=== PATIENT | female | born 1955 | race Caucasian/White ===

== ENCOUNTER 2018-04-16 14:25 | Emergency (ER) | payer MEDICAID, MEDICARE ==
[2018-04-16 15:13] LABS: #Eosinphils 0.1 thou/uL (0.0-0.7); #Lymphocytes 0.9 thou/uL (1.20-3.40); #Monocytes 0.3 thou/uL (0.11-0.59); #Neutrophils 2.4 thou/uL (1.40-6.50); %Eosinophils 2.6 % (0.0-10.0); %Lymphocytes 23.5 % (21.0-51.0); %Monocytes 8.5 % (0.0-10.0); %Neutrophils 65.4 % (42.0-75.0); Hemoglobin 9.3 g/dL (12.0-16.0); Mean Corpuscular HGB CONC 35.3 g/dL (32.0-36.0); Mean Corpuscular Hemoglobin 31.8 pg (27.0-31.0); Mean Corpuscular Volume 90.1 fL (78.0-98.0); Mean Platelet Volume 9.8 fL (7.4-10.4); Platelet Count 51 thou/uL (130-400); RBC Distribution Width 12.5 % (11.5-14.5); Red Blood Cell (RBC) Count 2.91 mill/uL (4.20-5.40); White Blood Cell (WBC) Count 3.7 thou/uL (4.8-10.8)
[2018-04-16 15:35] LABS: ALT (SGPT) 11 U/L (8-55); AST (SGOT) 19 U/L (5-34); Albumin 3.5 g/dL (3.5-5.0); Alkaline Phosphatase 128 U/L (40-150); Anion Gap 14 mmol/L (10-20); BUN (Urea Nitrogen) 36 mg/dL (9.8-20.1); Bilirubin, Total 0.5 mg/dL (0.2-1.2); Calc. Creatinine Clearance 0 mL/min (70-130); Calcium 9.2 mg/dL (7.8-10.44); Carbon Dioxide 25 mmol/L (22-29); Chloride 109 mmol/L (98-107); Estimated GFR-MDRD 21; Globulin 3.5 g/dL (2.4-3.5); Glucose 190 mg/dL (70-105); Potassium 4.2 mmol/L (3.5-5.1); Sodium 144 mmol/L (136-145)
--- NOTE | 2018-04-16 16:27 | ULT ---
VENOUS DOPPLER ULTRASOUND OF LEFT LOWER EXTREMITY: History: Left lower extremity edema and leg pain. Technique: Grayscale, color flow, and spectral doppler imaging of the deep venous system was performe d. FINDINGS: Good flow, compression, and augmentation are noted in the left common femoral, femoral, deep femoral, deep femoral, popliteal, posterior tibial and greater saphenous veins. IMPRESSION: No evidence of DVT in the left lower extremity. POS: [facility]
== END 2018-04-16 16:52 | disposition home or self-care (01) ==
LOC: ERS 14:25
DX: I12.9 Hypertensive chronic kidney disease with stage 1 through stage 4 chronic kidney disease, or unspecified chronic kidney disease (principal); N18.9 Chronic kidney disease, unspecified; F17.210 Nicotine dependence, cigarettes, uncomplicated; F41.9 Anxiety disorder, unspecified; F32.9 Major depressive disorder, single episode, unspecified; J44.9 Chronic obstructive pulmonary disease, unspecified; E11.22 Type 2 diabetes mellitus with diabetic chronic kidney disease; Z79.899 Other long term (current) drug therapy; Z79.4 Long term (current) use of insulin
CPT/HCPCS: 36415; 80053; 85025

== ENCOUNTER 2019-01-07 10:54 | Outpatient (CLI) | payer OTHER ==
--- NOTE | 2019-01-07 12:13 | RAD ---
LEFT SHOULDER 3 VIEWS: Date: 01/07/19 HISTORY: Acute pain left shoulder following an injury. COMPARISON: 04/20/16. FINDINGS: Evidence for remote nonunion distal clavicle fracture. Healed left rib fractures. Arthrosis changes o f the AC joint and glenohumeral joint. No evidence for an acute fracture or dislocation. 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 Healed left rib fractures. No evidence for acute shoulder fracture. POS: [facility]
--- NOTE | 2019-01-07 12:13 | RAD ---
LEFT RIBS 2 VIEWS CHEST 1 VIEW: HISTORY: Intercostal pain, rib pain. FINDINGS: Evidence for multiple left healed rib fractures. No pneumothorax or pleural effusion. Atheroscleros is of the aorta. IMPRESSION: Evidence for multiple healed left rib fractures. No convincing evidence for acute left rib fracture. No pneumothorax or pleural effusion. POS: [facility]
--- NOTE | 2019-01-07 12:14 | RAD ---
RIGHT RIBS 2 VIEWS: HISTORY: Intercostal pain, rib pain. FINDINGS: There are some healed rib fractures. No evidence for acute fracture. No pneumothorax or pleural eff usion. IMPRESSION: No convincing evidence for acute rib fracture. Healed right rib fractures. No pneumothorax, pleural effusion, or other significant acute process. POS: [facility]
== END 2019-01-07 10:55 | disposition home or self-care (01) ==
LOC: BICRAD 10:54
PROVIDERS: ATTEND Family Medicine
DX: R07.81 Pleurodynia (principal); R07.82 Intercostal pain; M25.512 Pain in left shoulder

== ENCOUNTER 2019-09-27 11:16 | Inpatient (IN) | payer MEDICARE, OTHER ==
[2019-09-27 12:04] LABS: #Eosinphils 0.1 thou/uL (0.0-0.7); #Lymphocytes 0.6 thou/uL (1.20-3.40); #Monocytes 0.3 thou/uL (0.11-0.59); #Neutrophils 3.1 thou/uL (1.40-6.50); %Basophils 0.5 % (0.0-1.0); %Eosinophils 1.6 % (0.0-10.0); %Lymphocytes 13.6 % (21.0-51.0); %Neutrophils 76.3 % (42.0-75.0); Hemoglobin 7.9 g/dL (12.0-16.0); Mean Corpuscular HGB CONC 33.7 g/dL (32.0-36.0); Mean Corpuscular Hemoglobin 31.5 pg (27.0-31.0); Mean Corpuscular Volume 93.5 fL (78.0-98.0); Mean Platelet Volume 11.1 fL (7.4-10.4); Platelet Count 44 thou/uL (130-400); RBC Distribution Width 13.7 % (11.5-14.5); Red Blood Cell (RBC) Count 2.49 mill/uL (4.20-5.40); White Blood Cell (WBC) Count 4.1 thou/uL (4.8-10.8)
--- NOTE | 2019-09-27 12:10 | RAD ---
XR Chest 1 View Portable HISTORY: Weakness COMPARISON: 08/21/2013 FINDINGS: The heart size is borderline. The lungs are well expanded without focal areas of consolidat ion, pneumothorax or pleural effusions. Mild chronic changes again seen. Old left-sided rib fractures are present.
[2019-09-27 12:29] LABS: ALT (SGPT) 11 U/L (8-55); AST (SGOT) 21 U/L (5-34); Albumin 3.7 g/dL (3.4-4.8); Alkaline Phosphatase 108 U/L (40-110); Anion Gap 14 mmol/L (10-20); BUN (Urea Nitrogen) 45 mg/dL (9.8-20.1); Bilirubin, Total 0.7 mg/dL (0.2-1.2); CK (CPK) 122 U/L (29-168); Calc. Creatinine Clearance 0 mL/min (70-130); Calcium 8.3 mg/dL (7.8-10.44); Carbon Dioxide 21 mmol/L (23-31); Chloride 111 mmol/L (98-107); Estimated GFR-MDRD 12; Globulin 3.5 g/dL (2.4-3.5); Glucose 113 mg/dL (80-115); Lipase 22 U/L (8-78); Potassium 4.2 mmol/L (3.5-5.1); Protein, Total 7.2 g/dL (6.0-8.3); Sodium 142 mmol/L (136-145)
[2019-09-27 12:34] LABS: Actual Bicarbonate (HCO3a) 20.5 mEq/L (22-28); Analyzer IN Cardio ER; Base Excess (BEa) -6.3 mEq/L (-2.0 to +3.0); Calcium, Ionized (arterial) 1.11 mmol/L (1.12-1.30); Carboxyhemoglobin (COHb) 1.4 gm% (0.0-3.0); Hemoglobin (Hb) 9.8 g/dL (12.0-16.0); Potassium - ABG Lab 4.16 mmol/L (3.70-5.30); pH, Arterial 7.27 (7.35-7.45)
[2019-09-27 12:35] LABS: Puncture Site LRA
[2019-09-27] MEDS ORDERED: Ketorolac Tromethamine 30 MG/ML VIAL ONE (12:44)
[2019-09-27] MEDS ORDERED: Metoclopramide HCl 10 MG/2 ML VIAL ONE (12:44)
[2019-09-27] MEDS ORDERED: Dexamethasone 10 MG/ML VIAL ONE ×3 (12:44→12:48)
[2019-09-27 12:49] LABS: CKMB 2.9 ng/mL (0-6.6)
[2019-09-27] MEDS ORDERED: Furosemide 40 MG/4 ML VIAL ONE ×2 (13:43→14:15)
[2019-09-27] MEDS ORDERED: Aspirin Chewable 81 MG TAB ONE (13:43)
[2019-09-27] MEDS ORDERED: Nitroglycerin 2% Ointment 1 INCH/1 GM Packet ONE (13:43)
[2019-09-27] MEDS ORDERED: Enoxaparin Sodium 100 MG/ML SYRINGE ONE (13:43)
[2019-09-27 16:31] LABS: Troponin I 0.091 ng/mL (< 0.028)
--- NOTE | 2019-09-27 16:50 | ULT ---
Exam: Bilateral renal ultrasound HISTORY: Chronic renal failure COMPARISON: None FINDINGS: Right kidney: Normal cortical echotexture. No hydronephrosis. Right kidney measurements: 6.0 x 6.9 x 12.1 cm. Left kidney: Normal cortical echotexture. No hydronephrosis Left kidney measurements 10.8 x 6.9 x 6.2 cm. Urinary bladder: Normal mucosa. 93 mL bladder volume. IMPRESSION: No hydronephrosis.
[2019-09-27] MEDS ORDERED: Ferrous Sulfate 325 MG TAB PO SCH (17:00)
--- NOTE | 2019-09-27 18:29 | CON ---
DATE OF CONSULTATION: 09/27/2019 HISTORY OF PRESENT ILLNESS: Ms. Campos is a 64-year-old white female, who was admitted due to complaints of generalized malaise. According to the patient, she has had intermittent fever and for that reason, was sent today here for further evaluation. The patient was ruled out for COVID-19. In addition, chest x-ray did not show any infiltrates or evidence of CHF. We are now being consulted for her acute kidney injury on top of her chronic renal failure. REVIEW OF SYSTEMS: Positive for generalized malaise, occasional shortness of breath when supine position, but on upright remains asymptomatic, ? of fever. No gross hematuria. No dysuria. No abdominal pain. No syncopal episode. No headache. Occasional joint pains. No new skin rash. Appetite and energy level are fair. No dysuria. No melena. No hematochezia. No sore throat. HOME MEDICATIONS: Home medications include; 1. Tizanidine 2 mg tablet at bedtime p.r.n. 2. Albuterol neb treatment q.6h p.r.n. 3. Remeron 50 mg at bedtime. 4. Lyrica 200 mg p.o. t.i.d. p.r.n. 5. Amlodipine 10 mg tablet once a day. 6. Ferrous sulfate 325 mg twice a day. 7. Klor-Con 20 mEq once a day. 8. Furosemide 40 mg tablet once a day. 9. Levemir 60 units subcu at bedtime. 10. Sertraline 100 mg half a tablet daily. 11. KCl 20 mEq once a day. PAST MEDICAL HISTORY: 1. DJD. 2. Chronic renal failure from diabetic nephropathy. 3. COPD/chronic bronchitis. 4. History of liver disease/cirrhosis. 5. ? status post hepatitis. 6. Depression. 7. Status post right foot/leg infection. 8. Status post UTI. 9. Diabetic neuropathy. 10. Type-2 diabetes mellitus. PAST SURGICAL HISTORY: 1. Status post back surgery. 2. Status post right BKA. 3. Status post hysterectomy. 4. Status post right ankle surgery. 5. Status post right elbow surgery. 6. Status post right shoulder surgery. 7. Status post colonoscopy. SOCIAL HISTORY: The patient lives in [place] [facility]. The patient is , total of 6 children with 2 as adopted and with 2 . Status post blood transfusion. Alcohol, none. Smokes 4 to 5 cigarettes at the present time, but used to smoke 1 to 2 packs a day for at least 20 years. Education, 11th grade. She is a retired head of store operations. No IV drug abuse. FAMILY HISTORY: No family history of ESRD. ALLERGIES: ERYTHROMYCIN. TRAUMA: 1. Status post left collarbone injury. 2. Status post right ankle fracture. 3. Status post left forearm fracture. HOSPITALIZATIONS: Please see past medical history. IMMUNIZATIONS: Up-to-date. PHYSICAL EXAMINATION: VITAL SIGNS: Blood pressure is noted at 158/86, heart rate 86, respiratory rate 18, O2 saturation 90% on room air, temperature is 97.8. GENERAL: The patient is awake, alert, supine, comfortable, not in overt distress. SKIN: Adequate turgor. HEENT: She has a slightly pale conjunctivae. Anicteric sclerae. No neck mass. No carotid bruits. No JVD. CHEST: No deformities. LUNGS: Decreased breath sounds. HEART: Normal sinus rhythm. No murmurs. No gallops. No rubs. ABDOMEN: Globular, soft, nontender. No masses. EXTREMITIES: No edema, left leg. Status post right BKA. NEUROLOGICAL: Oriented to 3 spheres. Moving all extremities. No tremors. No asterixis. LABORATORY DATA: Laboratories of September 27, 2019; white count 4.1, hemoglobin 7.9. Sodium 142, potassium 4.2, chloride 111, carbon dioxide 21, BUN 45, creatinine 3.86, glucose 113, GFR is 12 mL/minute, calcium 8.3. Albumin 3.7. BNP is 641.2. Troponin-I was 0.104. Urinalysis of July 13, 2019, protein was 200, RBC 4-6, WBC 4-6. ASSESSMENT AND PLAN: 1. Chronic renal failure - with longstanding history of diabetes mellitus and proteinuria, consider diabetic nephropathy. Creatinine 3.86, slightly higher from baseline of 3.33. Please note, this patient has been on chronic diuretic regimen. Our plan today is to give albumin infusion to see if I could still improve the renal function. I do not see any indication for any emergent hemodialysis at the present time with this patient. Continue to hold off diuretics, MOSES inhibitors, or ARB. In addition, I will hold off any NSAIDs such as Toradol. 2. Chronic obstructive pulmonary disease - DuoNeb q.6 hours around the clock. 3. Anemia. We will start Epogen 7500 units subcu every week. In addition, we will continue iron supplementation 325 mg b.i.d. A renal ultrasound will also be ordered to determine kidney size. Previous urinalysis was done and is adequate for the moment. 4. Generalized malaise, this could be related to anemia. Please note, the patient has been ruled out for COVID due to complaints of intermittent fever at home. Job ID: [id number]
[2019-09-27] MEDS ORDERED: Dextrose 50% Abboject 50 ML SYRINGE SLOW IVP PRN (18:56)
[2019-09-27] MEDS ORDERED: HumaLOG 300 UNITS/3 ML VIAL SC PRN (18:56)
[2019-09-27] MEDS ORDERED: Dextrose 5% in Water 1,000 ML IV PRN (18:56)
[2019-09-27 18:58] LABS: Troponin I 0.077 ng/mL (< 0.028)
[2019-09-27] MEDS ORDERED: Calcium Carbonate 500 MG ChewTAB PO PRN (18:58)
[2019-09-27] MEDS ORDERED: Senokot S 8.6-50 MG TAB PO PRN (18:58)
[2019-09-27] MEDS: Albumin 25% 25 GM/100 ML BOT IVPB SCH ×2 (19:23→22:55)
[2019-09-27 19:35] LABS: Reticulocyte Count 5.2 % (0.5-1.5)
[2019-09-27 19:41] LABS: INR-International Normal Ratio 1.3; PTT 41.9 sec (22.9-36.1); Prothrombin Time 15.9 sec (12.0-14.7)
[2019-09-27 19:52] LABS: Iron 49 ug/dL (50-170); Iron Binding Capacity, Total 220 mcg/dL (265-497)
[2019-09-27] MEDS: EPOETIN ALFA-EPBX (ESRD) 4,000 UNIT/ML VIAL SC SCH (19:52)
--- NOTE | 2019-09-27 20:02 | HP ---
PRIMARY CARE PHYSICIAN: Sarath Aguillon MD PATTERN ILLUSTRATOR: Wilver Fang MD CHIEF COMPLAINT: Generalized weakness and nonproductive cough. HISTORY OF PRESENT ILLNESS: The patient is a 64-year-old female with past medical history significant for chronic kidney disease stage 4, cirrhosis, diabetes type 2, COPD, chronic back pain, and depression, who presents to the ER for the above complaint. The patient reports having generalized weakness and malaise over the past 3 to 4 days. She denies any chest pain or palpitations or swelling in her lower extremities. She denies any shortness of breath. She does report chronic nonproductive cough and she has had a decreased oral intake. She denies any abdominal pain, nausea, vomiting, or diarrhea. She denies any blood in her stool. She denies any dysuria or vaginal discharge. She denies any fever or chills. In the ER, the patient presented hypertensive with a blood pressure 200/90, hypoxic , 87% on room air. ABG showed metabolic acidosis. Her BUN was 45. Her creatinine was 3.86. She was pancytopenic with a hemoglobin of 7.9, hematocrit of 23.3, platelets of 44, white blood cells of 4.1. EKG, normal sinus rhythm. Troponin 0.104. BNP of 641.2. She had a D-dimer of 1.84. She was given 1 mg/ kg Lovenox, nitroglycerin paste, and a full dose aspirin, Lasix 40 mg, 1 L normal saline, and some Decadron. Admitted to the floor. PAST MEDICAL HISTORY: 1. Cirrhosis. 2. Chronic kidney disease, stage 4. 3. Diabetes type 2, insulin dependent. 4. COPD. 5. Chronic back pain. 6. Anxiety and depression. PAST SURGICAL HISTORY: 1. Hysterectomy. 2. Back surgery x2. 3. Right BKA. 4. Elbow surgery x4. SOCIAL HISTORY: The patient lives at [place] in an apartment. She performs all of her ADLs. She smokes 4 cigarettes a day. Has no alcohol intake. No illicit drug use and she mobilizes by wheelchair and she does not work. FAMILY HISTORY: Noncontributory to this case. The patient reports that it is unknown. ALLERGIES: 1. ERYTHROMYCIN. 2. BENZOCAINE. 3. TRIMETHOBENZAMIDE. HOME MEDICATIONS: 1. Alendronate sodium 70 mg one tablet p.o. q.7 days. 2. Furosemide 40 mg p.o. daily. 3. Humulin R sliding scale at bedtime. 4. Potassium chloride 20 mEq p.o. b.i.d. 5. Tizanidine 4 mg p.o. at bedtime. 6. Ambien 5 mg p.o. at bedtime. 7. Tylenol with codeine 300 mg/60 mg one p.o. p.r.n. pain. 8. Amlodipine 10 mg p.o. daily. 9. Buspirone 15 mg p.o. b.i.d. 10. Ferrous sulfate 325 mg p.o. b.i.d. 11. Fluoxetine 40 mg p.o. daily. 12. Hydralazine 10 mg p.o. t.i.d. 13. Levemir 55 units subcutaneous at bedtime. 14. Mirtazapine 15 mg p.o. at bedtime. 15. Pantoprazole 40 mg p.o. daily. 16. Lyrica 200 mg p.o. t.i.d. 17. Sertraline 150 mg p.o. daily. REVIEW OF SYSTEMS: All review of systems are negative unless otherwise stated in the HPI. PHYSICAL EXAMINATION: VITAL SIGNS: Temperature 97.9, blood pressure 157/83, pulse 88, respirations 15 , 95% on 3 L nasal cannula. CONSTITUTIONAL: The patient is alert and oriented to person, place, and time. Nontoxic in appearance and comfortable. HEAD: Atraumatic and normocephalic. EYES: PERRLA. Extraocular muscles intact. ENT: Nares patent bilaterally. Oropharynx clear. Uvula midline. Moist mucous membranes. No oral lesions. Poor dentition. NECK: Supple. Trachea midline. No JVD. No cervical adenopathy. Full range of motion. No cervical tenderness. RESPIRATIONS: Even and unlabored. Diminished throughout. No rhonchi, wheezes , or rales. CARDIOVASCULAR: Regular rate and rhythm with 3/6 murmur. No rubs or gallops. ABDOMEN: Soft, nontender. Active bowel sounds. No guarding. No rigidity. No rebound tenderness. No abdominal bruit auscultated. Negative Rovsing sign. Negative Vázquez sign. BACK: Full range of motion. No central spinous tenderness. No CVA tenderness. EXTREMITIES: Upper extremities, full range of motion. Strength intact. Sensation intact. Palpable radial pulses. Lower extremities, right BKA. Left lower extremity is normal. Full range of motion. Normal strength. Normal sensation. Palpable pulses. No swelling. NEUROLOGIC: The patient is alert and oriented to person, place, and time. No focal deficits. Follows commands. PSYCHIATRIC HISTORY: Normal affect. Alert and oriented to person, place, and time. Denies suicidal or homicidal ideation. LABS AND DIAGNOSTICS: EKG, normal sinus rhythm. Troponin 0.104, second troponin 0.091. BNP 641.2. D-dimer 1.84. Chest x-ray, negative for any acute process. COVID negative. ABG; pH 7.27, pCO2 of 46, bicarb 20.5, pO2 of 96.8. Sodium 146 , potassium 4.2, chloride 111, CO2 of 27, BUN 45, creatinine 3.86, glucose 113, T bilirubin 0.7, AST 21, ALT 11, alkaline phosphatase 108, lipase 22. WBCs 4.1, hemoglobin 7.9, hematocrit 23.3, platelets 44. IMPRESSION AND PLAN: 1. Acute hypoxic respiratory failure. We will admit the patient to telemetry for inpatient status. Expected length of stay greater than 2 midnights. The patient presented hypertensive and hypoxic. The patient was placed on 3 L nasal cannula with improved oxygenation. EKG, normal sinus rhythm. Elevated troponin and BNP and D-dimer. Unable to perform CT at this time secondary to kidney function. We will trend troponins. We will continue air quality technician. We will check a TSH, magnesium, and fasting lipid. We will order an echocardiogram and VQ scan. No anticoagulation secondary to low platelets. 2. Jilxn-qe-otnfzab kidney failure. The patient presented with a BUN of 45, creatinine of 3.86. Dr. Fang with Nephrology was consulted in the ER. At this time, he does not think that the patient needs dialysis at this time. He has started albumin and epoetin. Appreciate his input. 3. Metabolic acidosis, likely secondary to problem #2. The patient presented with ABG, pH of 7.27, pCO2 of 46, bicarb 20.5. 4. Pancytopenia, likely secondary to chronic kidney disease. We will check a folate, B12, iron studies, and retic count. The patient is currently on erythropoietin. 5. Chronic obstructive pulmonary disease. The patient presented in acute hypoxic respiratory distress, currently on 3 L nasal cannula. Respirations are even and unlabored. She is in no acute distress at this time. We will start the patient on DuoNeb scheduled and will continue supportive oxygen as needed. 6. Cirrhosis, chronic. We will check coags. 7. Diabetes type 2. The patient is on 55 units of Levemir daily. We will restart the patient's home dose of Levemir and we will start the patient on moderate sliding scale with a.c. and nightly Accu-Cheks. 8. Tobacco abuse. The patient smokes 4 cigarettes per day. She is unwilling to quit. We will after school counselor tobacco cessation. 9. Depression. The patient denies any suicidal or homicidal ideation. The patient is on multiple medications for depression. We will restart home medications when reconciled by nursing. 10. No deep venous thrombosis prophylaxis. Pantoprazole for gastrointestinal prophylaxis. The patient is a full code. Her medical contact is Sherrell, her daughter, [phone]. 11. Discussed case with Dr. Falcon. Job ID: [id number] MTDD
[2019-09-27] MEDS ORDERED: Non-Formulary Item 1 EACH (Insulin Detemir 100 Units/Ml [Levemir] 55 UNITS) SC SCH (21:00)
[2019-09-27] MEDS: hydrALAZINE 10 MG TAB PO SCH (21:02)
[2019-09-27] MEDS: Insulin Glargine 55 UNITS in Pre-Filled Syringe 1 EACH SC SCH (21:02)
[2019-09-27] MEDS: Pregabalin 50 MG CAP PO SCH (21:03)
[2019-09-27] MEDS: busPIRone HCl 5 MG TAB PO SCH (21:03)
[2019-09-27] MEDS: Mirtazapine 15 MG TAB PO SCH (21:04)
[2019-09-27] MEDS: Nicotine 14 MG PATCH TD SCH (22:55)
[2019-09-27 23:40] LABS: Bilirubin Negative (Negative); Blood, Urine 2+ (Negative); Clarity Turbid (Clear); Glucose, Urine (Dipstick) 500 mg/dL (Negative); Ketone, Urine 20 mg/dL (Negative); Leukocyte 75 Leu/uL (Negative); Nitrite Negative (Negative); Protein, Urine (Dipstick) 300 mg/dL (Neg-Trace); Specific Gravity, Urine 1.016 (1.002-1.036); Squamous Epithelial 0-3 HPF (0-3); Urobilinogen Normal mg/dL (Less than 2)
[2019-09-27 23:42] LABS: Bacteria/HPF Rare-Few HPF (None Seen)
[2019-09-27] MEDS: Zolpidem Tartrate 5 MG TAB PO PRN (23:58)
[2019-09-28 04:36] LABS: #Lymphocytes 0.4 thou/uL (1.20-3.40); #Monocytes 0.4 thou/uL (0.11-0.59); #Neutrophils 2.5 thou/uL (1.40-6.50); %Basophils 0.3 % (0.0-1.0); %Eosinophils 0.8 % (0.0-10.0); %Lymphocytes 11.7 % (21.0-51.0); %Monocytes 11.9 % (0.0-10.0); %Neutrophils 75.2 % (42.0-75.0); Hemoglobin 6.7 g/dL (12.0-16.0); Mean Corpuscular HGB CONC 33.1 g/dL (32.0-36.0); Mean Corpuscular Volume 93.6 fL (78.0-98.0); Mean Platelet Volume 11.4 fL (7.4-10.4); Platelet Count 38 thou/uL (130-400); RBC Distribution Width 13.8 % (11.5-14.5); Red Blood Cell (RBC) Count 2.17 mill/uL (4.20-5.40); White Blood Cell (WBC) Count 3.3 thou/uL (4.8-10.8)
[2019-09-28 04:57] LABS: Anion Gap 11 mmol/L (10-20); BUN (Urea Nitrogen) 53 mg/dL (9.8-20.1); Calc. Creatinine Clearance 21 mL/min (70-130); Calcium 7.8 mg/dL (7.8-10.44); Carbon Dioxide 24 mmol/L (23-31); Cardiac Risk 5.4 (Less than 4.5); Chloride 112 mmol/L (98-107); Cholesterol 195 mg/dl (< 200 Desired); Estimated GFR-MDRD 10; Glucose 128 mg/dL (80-115); HDL Cholesterol 36 mg/dL (>60 Neg Risk); LDL Cholesterol, Calculated 132 mg/dL; Phosphorus 4.3 mg/dL (2.3-4.7); Potassium 4.4 mmol/L (3.5-5.1); Sodium 143 mmol/L (136-145); Triglycerides 137 mg/dL (Less than 150)
[2019-09-28] MEDS: Albumin 25% 25 GM/100 ML BOT IVPB SCH ×4 (05:04→21:30)
[2019-09-28] MEDS: Ferrous Sulfate 325 MG TAB PO SCH ×2 (08:56→15:51)
[2019-09-28] MEDS: FLUoxetine HCl 20 MG CAP PO SCH (08:57)
[2019-09-28] MEDS: busPIRone HCl 5 MG TAB PO SCH ×2 (08:57→21:28)
[2019-09-28] MEDS: Amlodipine 10 MG TAB PO SCH (08:58)
[2019-09-28] MEDS: Pregabalin 50 MG CAP PO SCH ×3 (09:18→21:29)
[2019-09-28] MEDS: hydrALAZINE 10 MG TAB PO SCH ×3 (09:20→21:29)
[2019-09-28] MEDS: Calcitriol 0.25 MCG CAP PO SCH (09:20)
[2019-09-28] MEDS ORDERED: Albumin 25% 25 GM/100 ML BOT IVPB ONE (09:30)
--- NOTE | 2019-09-28 09:43 | PRG ---
DATE OF SERVICE: 09/28/2019 SUBJECTIVE: Ms. Campos is a 64-year-old white female was admitted due to generalized malaise and ? of a fever. She was ruled out for COVID-19. In addition, we are seeing this patient for acute kidney injury on top of her chronic renal failure. Creatinine continues to worsen. She was given albumin infusion and creatinine has further gone up from 3.86 to 4.4. Chest x-ray initially showed no overt CHF, but her BNP is elevated. However, BNP could be elevated also in people with COPD. Cardiac echo and lung perfusion studies have been ordered. She voices no new complaint today. She does mention of shortness of breath on supine position, but not on upright position. For that reason, a cardiac echo has been ordered. OBJECTIVE: VITAL SIGNS: Blood pressure 151/89, heart rate 76, respiratory rate 15, temperature 97.5, and O2 saturation is 98%. GENERAL: The patient is noted to be awake, supine, comfortable, obese, not in distress. SKIN: Adequate turgor. HEENT: Pale conjunctivae. Anicteric sclerae. NECK: No neck mass. No carotid bruits. No JVD. CHEST: No deformities. LUNGS: Clear breath sounds. No wheezing. No crackles. HEART: Normal sinus rhythm. No murmurs. No gallops. No rubs. ABDOMEN: Globular, soft, and nontender. No masses. EXTREMITIES: Trace edema. No deformities. MEDICATIONS: Medications of September 28, 2019, reviewed. LABORATORY DATA: Laboratories of September 28, 2019; white count 3.3, hemoglobin 6.7, hematocrit 20.3. Sodium 143, potassium 4.4, chloride 112, carbon dioxide 24, BUN 53, creatinine 4.44, glucose 128, calcium 7.8, phosphorus 4.3, cholesterol 195. PTH 1178. On September 27, 2019, renal ultrasound shows normal findings-normal echotexture. No hydronephrosis. ASSESSMENT AND PLAN: 1. Acute kidney injury on top of her chronic renal failure-I still suspect a possible prerenal component on top of her chronic renal failure. In the past, her urinalysis showed proteinuria suggesting she may have an underlying diabetic nephropathy. The plan is to continue albumin infusion for one more day. In addition, blood transfusion will be giving to optimize her hemodynamics. No indication for any emergent dialysis at the present time. Although, I have not rule out that possibility if the renal function will further worsen. 2. Anemia. Started on Epogen, blood transfusion 1 unit today. 3. Secondary hyperparathyroidism-calcitriol 0.25 mcg tablet daily was started. 4. Chronic obstructive pulmonary disease. Continue neb treatment. The patient will be ruled out for PE as we will do a cardiac echo to check for ejection fraction. Overall prognosis remains guarded. We will recheck basic metabolic and CBC in a.m. Blood transfusion has been ordered. Job ID: [id number]
--- NOTE | 2019-09-28 11:15 | NM ---
NUCLEAR MEDICINE PULMONARY PERFUSION SCAN: (V/Q scan) DATE: 09/28/2019 HISTORY: 64-year-old female with "acute hypoxic respiratory failure. Elevated d-dimer" TECHNIQUE: Xenon-133 gas not administered because of COVID-19 risk on ventilation machines. Technetium 99m-MAA dose: 5.5 mCi Ventilation portion of study not performed. Technetium 99m-MAA was injected IV, and multiple perfusion scintigraphic images were obtained. FINDINGS: There are no moderate sized or large perfusion defects. IMPRESSION: Low probability for pulmonary thromboembolism.
--- NOTE | 2019-09-28 12:49 | PDOC.HOSPP ---
- Subjective Encounter Date: 09/28/19 Subjective: Patient seen and examined bedside this morning sugars were brought in some improvement in her symptoms denying any chest pain nausea vomiting still feeling generalized weakness and some short of breath but no significant overnight events patient has remained afebrile - Objective Vital Signs & Weight: Vital Signs (12 hours) Temp Pulse Resp BP BP Pulse Ox 09/28/19 11:01 97.8 F 82 19 179/94 H 98 09/28/19 09:20 76 151/89 H 09/28/19 08:58 76 151/89 H 09/28/19 07:34 97.5 F L 76 15 151/89 H 98 09/28/19 07:27 75 18 100 09/28/19 03:31 98.0 F 75 18 137/76 96 Weight Weight 218 lb I&O: 09/27/19 09/28/19 09/29/19 06:59 06:59 06:59 Intake Total 400 0 Output Total 200 Balance 200 0 Result Diagrams: 09/28/19 04:25 09/28/19 04:25 Additional Labs: Accuchecks 09/28/19 09/28/19 09/27/19 12:13 05:45 20:58 POC Glucose 139 H 116 H 270 H Hospitalist ROS - Medication Medications: Active Medications Generic Name Dose Route Start Last Admin Trade Name Lee PRN Reason Stop Dose Admin Albumin Human 25 gm 09/28/19 10:00 09/28/19 09:52 Albumin 25% IVPB 09/29/19 04:01 25 gm Q6H ANT Administration Albuterol/Ipratropium 3 ml 09/27/19 19:00 09/28/19 07:27 Duoneb EZPAP 3 ml [id number] ANT Administration Amlodipine Besylate 10 mg 09/28/19 09:00 09/28/19 08:58 Norvasc PO 10 mg DAILY ANT Administration Buspirone HCl 15 mg 09/27/19 21:00 09/28/19 08:57 Buspar PO 15 mg BID ANT Administration Calcitriol 0.25 mcg 09/28/19 09:00 09/28/19 09:20 Rocaltrol PO 0.25 mcg DAILY ANT Administration Epoetin Randy-epbx 7,500 unit 09/27/19 17:00 09/27/19 19:52 Retacrit SC 7,500 unit Q7D ANT Administration Ferrous Sulfate 325 mg 09/28/19 08:00 09/28/19 08:56 Feosol PO 325 mg BID-WM ANT Administration Fluoxetine HCl 40 mg 09/28/19 09:00 09/28/19 08:57 Prozac PO 40 mg DAILY ANT Administration Hydralazine HCl 10 mg 09/27/19 21:00 09/28/19 09:20 Apresoline PO 10 mg TID ANT Administration Insulin Glargine 55 units/ 0.55 mls @ 0 mls/hr 09/27/19 21:00 09/27/19 21:02 Miscellaneous Medication SC 0.55 mls HS ANT Administration Insulin Human Lispro 0 units 09/27/19 18:56 09/27/19 20:59 Humalog SC 3 units .BEDTIME SLIDING SC PRN Administration Bedtime Correctional Scale Mirtazapine 15 mg 09/27/19 21:00 09/27/19 21:04 Remeron PO 15 mg HS ANT Administration Nicotine 14 mg 09/27/19 22:00 09/27/19 22:55 Nicoderm Patch TD 14 mg 2200 ANT Administration Pantoprazole Sodium 40 mg 09/28/19 09:00 09/28/19 08:56 Protonix PO 40 mg DAILY ANT Administration Pregabalin 200 mg 09/27/19 21:00 09/28/19 09:18 Lyrica PO 200 mg TID ANT Administration Sertraline HCl 150 mg 09/28/19 09:00 09/28/19 08:57 Zoloft PO 150 mg DAILY ANT Administration Sodium Chloride 10 ml 09/27/19 18:58 09/27/19 21:04 Flush - Normal Saline IVF 10 ml Q12HR PRN Administration Saline Flush Zolpidem Tartrate 5 mg 09/27/19 18:16 09/27/19 23:58 Ambien PO 5 mg HSPRN PRN Administration Insomnia - Exam General Appearance: NAD, awake alert Eye: PERRL Neck: supple Heart: RRR, no murmur Respiratory: CTAB, no wheezes Gastrointestinal: soft, non-tender Musculoskeletal: normal tone Hosp A/P (1) OTIS (acute kidney injury) Code(s): N17.9 - ACUTE KIDNEY FAILURE, UNSPECIFIED Status: Acute (2) Diabetes mellitus Code(s): E11.9 - TYPE 2 DIABETES MELLITUS WITHOUT COMPLICATIONS Status: Acute (3) Hematemesis Code(s): K92.0 - HEMATEMESIS Status: Acute (4) Hypokalemia Code(s): E87.6 - HYPOKALEMIA Status: Acute (5) Syncope Code(s): R55 - SYNCOPE AND COLLAPSE Status: Acute - Plan Acute hypoxic respiratory failure most likely in the setting fluid overload in the setting of acute on chronic kidney disease we will continue to monitor for now wean off oxygen as tolerated VQ scan low probability for pulmonary emboli Patient saturating well on room air we will continue to monitor Regarding acute kidney injury on top of CKD possible prerenal component appreciate nephrology input, the plan is to continue albumin infusion for 1 more day as well as blood transfusion no indication for emergent dialysis will follow further nephrology recommendations Anemia most likely of chronic disease Started on Epogen blood transfusion 1 unit today we will follow CBC and transfuse if needed Secondary hyperparathyroidism Monitor electrolytes and replace as needed DVT prophylaxis GI prophylaxis Patient is full code Plan discussed with patient and all questions has been answered Demented clinical improvement patient will probably need 1 to 2 days of hospital stay once cleared by nephrology
[2019-09-28 15:29] LABS: #Lymphocytes 0.5 thou/uL (1.20-3.40); #Monocytes 0.3 thou/uL (0.11-0.59); #Neutrophils 2.7 thou/uL (1.40-6.50); %Basophils 0.1 % (0.0-1.0); %Eosinophils 1.2 % (0.0-10.0); %Lymphocytes 15.1 % (21.0-51.0); %Monocytes 8.5 % (0.0-10.0); %Neutrophils 75.1 % (42.0-75.0); Hemoglobin 7.1 g/dL (12.0-16.0); Mean Corpuscular HGB CONC 33.9 g/dL (32.0-36.0); Mean Corpuscular Hemoglobin 31.5 pg (27.0-31.0); Mean Corpuscular Volume 92.9 fL (78.0-98.0); Mean Platelet Volume 11.8 fL (7.4-10.4); Platelet Count 39 thou/uL (130-400); RBC Distribution Width 14.3 % (11.5-14.5); Red Blood Cell (RBC) Count 2.25 mill/uL (4.20-5.40); White Blood Cell (WBC) Count 3.6 thou/uL (4.8-10.8)
[2019-09-28 15:51] LABS: Anion Gap 15 mmol/L (10-20); BUN (Urea Nitrogen) 53 mg/dL (9.8-20.1); Calc. Creatinine Clearance 21 mL/min (70-130); Calcium 7.7 mg/dL (7.8-10.44); Carbon Dioxide 21 mmol/L (23-31); Chloride 111 mmol/L (98-107); Estimated GFR-MDRD 11; Glucose 126 mg/dL (80-115); Potassium 4.1 mmol/L (3.5-5.1); Sodium 143 mmol/L (136-145)
[2019-09-28] MEDS ORDERED: Prevnar 13-Val Conj/PF 0.5 ML SYRINGE IM ONE (17:45)
[2019-09-28] MEDS: Acetaminophen/Codeine 30-300mg Tablet PO PRN (19:00)
[2019-09-28 19:43] LABS: Bacteria/HPF None Seen HPF (None Seen); Bilirubin Negative (Negative); Blood, Urine 1+ (Negative); Clarity Clear (Clear); Glucose, Urine (Dipstick) 100 mg/dL (Negative); Ketone, Urine Negative (Negative); Leukocyte 75 Leu/uL (Negative); Nitrite Negative (Negative); Protein, Urine (Dipstick) 300 mg/dL (Neg-Trace); Specific Gravity, Urine 1.015 (1.002-1.036); Squamous Epithelial 0-3 HPF (0-3); Urobilinogen Normal mg/dL (Less than 2)
[2019-09-28] MEDS: Mirtazapine 15 MG TAB PO SCH (21:28)
[2019-09-28] MEDS: Insulin Glargine 55 UNITS in Pre-Filled Syringe 1 EACH SC SCH (21:28)
[2019-09-28] MEDS: Nicotine 14 MG PATCH TD SCH (21:30)
[2019-09-29] MEDS: Acetaminophen/Codeine 30-300mg Tablet PO PRN ×2 (00:40→12:26)
[2019-09-29] MEDS: Albumin 25% 25 GM/100 ML BOT IVPB SCH (04:55)
[2019-09-29 05:04] LABS: #Lymphocytes 0.6 thou/uL (1.20-3.40); #Monocytes 0.3 thou/uL (0.11-0.59); #Neutrophils 2.2 thou/uL (1.40-6.50); %Basophils 0.3 % (0.0-1.0); %Eosinophils 1.6 % (0.0-10.0); %Lymphocytes 18.5 % (21.0-51.0); %Neutrophils 71.5 % (42.0-75.0); Hemoglobin 7.3 g/dL (12.0-16.0); Mean Corpuscular HGB CONC 32.8 g/dL (32.0-36.0); Mean Corpuscular Hemoglobin 30.4 pg (27.0-31.0); Mean Corpuscular Volume 92.7 fL (78.0-98.0); Mean Platelet Volume 11.2 fL (7.4-10.4); Platelet Count 37 thou/uL (130-400); RBC Distribution Width 14.6 % (11.5-14.5); Red Blood Cell (RBC) Count 2.41 mill/uL (4.20-5.40); White Blood Cell (WBC) Count 3.1 thou/uL (4.8-10.8)
[2019-09-29 05:06] LABS: Anion Gap 15 mmol/L (10-20); BUN (Urea Nitrogen) 57 mg/dL (9.8-20.1); Calc. Creatinine Clearance 22 mL/min (70-130); Calcium 8.1 mg/dL (7.8-10.44); Carbon Dioxide 21 mmol/L (23-31); Chloride 111 mmol/L (98-107); Estimated GFR-MDRD 11; Glucose 116 mg/dL (80-115); Sodium 143 mmol/L (136-145)
[2019-09-29] MEDS: busPIRone HCl 5 MG TAB PO SCH ×2 (08:43→20:18)
[2019-09-29] MEDS: Calcitriol 0.25 MCG CAP PO SCH (08:44)
[2019-09-29] MEDS: hydrALAZINE 10 MG TAB PO SCH ×3 (08:45→20:18)
[2019-09-29] MEDS: Ferrous Sulfate 325 MG TAB PO SCH ×2 (08:46→15:55)
[2019-09-29] MEDS: Amlodipine 10 MG TAB PO SCH (08:46)
[2019-09-29] MEDS: Pregabalin 50 MG CAP PO SCH ×3 (08:47→20:17)
[2019-09-29] MEDS: FLUoxetine HCl 20 MG CAP PO SCH (08:49)
[2019-09-29] MEDS: Sodium Chloride 0.9% 1,000 ML IV SCH ×2 (09:37→21:58)
--- NOTE | 2019-09-29 09:38 | PRG ---
DATE OF SERVICE: 09/29/2019 SUBJECTIVE: Ms. Campos is a 64-year-old white female, who followed up by the Renal Service for her acute kidney injury on top of her chronic renal failure. I feel that she may have a superimposed prerenal azotemia. Albumin infusion has been given as well as blood in the last few days. In addition, I have decided to start her on normal saline. Cardiac echo showed a normal ejection fraction with this patient. She was also ruled out for PE. We will attempt to achieve a baseline renal function with this patient if possible. The patient voices no new complaints today. She denies any chest pain or shortness of breath. OBJECTIVE: VITAL SIGNS: Blood pressure 194/98, heart rate 87, respiratory rate 16, temperature 97.8, O2 saturations 96%. GENERAL: The patient is noted to be awake, supine, comfortable, obese. SKIN: Adequate turgor. HEENT: Slightly pale conjunctivae. Anicteric sclerae. No neck mass. No carotid bruits. No JVD. CHEST: No deformities. LUNGS: Clear breath sounds. No wheezing. No crackles. HEART: Normal sinus rhythm. No murmur. No gallops. No rubs. ABDOMEN: Globular, soft, nontender. No masses. EXTREMITIES: Trace edema. MEDICATIONS: On September 29, 2019 was reviewed. LABORATORY DATA: Of September 29, 2019, sodium 143, potassium 4, chloride 111, carbon dioxide 21, BUN 57, creatinine 4.21, GFR 11 mL/minute, calcium is 8.1, magnesium is 2.0. White count 3.1, hemoglobin 7.3. ASSESSMENT AND PLAN: 1. Anemia - p.r.n. blood transfusion. In addition, we started Epogen and we will continue iron supplementation. 2. Acute kidney injury on top of her chronic renal failure - superimposed prerenal azotemia. We will start normal saline at 75 mL/hour. No indication for any emergent hemodialysis for the moment. Please note, her chronic renal failure is from underlying diabetic nephropathy. 3. We will recheck CBC and basic metabolic panel in a.m. Job ID: [id number]
--- NOTE | 2019-09-29 11:54 | PDOC.HOSPP ---
- Subjective Subjective: pt reports feeling somewhat better today currently started on fluids , no fever or chills no new complains today - Objective Vital Signs & Weight: Vital Signs (12 hours) Temp Pulse Resp BP Pulse Ox 09/29/19 06:38 75 16 09/29/19 03:55 97.8 F 87 16 194/98 H 96 Weight Weight 218 lb I&O: 09/28/19 09/29/19 09/30/19 06:59 06:59 06:59 Intake Total 400 2380 Output Total 200 950 Balance 200 1430 Result Diagrams: 09/29/19 03:48 09/29/19 03:48 Additional Labs: Accuchecks 09/29/19 09/29/19 09/28/19 11:23 06:46 20:32 POC Glucose 171 H 115 H 196 H 09/28/19 09/28/19 17:08 12:13 POC Glucose 111 H 139 H Hospitalist ROS - Medication Medications: Active Medications Generic Name Dose Route Start Last Admin Trade Name Freq PRN Reason Stop Dose Admin Acetaminophen/Codeine Phosphate 2 tab 09/27/19 18:14 09/29/19 00:40 Tylenol #3 PO 2 tab BIDPRN PRN Administration Moderate Pain (4-6) Albuterol/Ipratropium 3 ml 09/27/19 19:00 09/29/19 06:38 Duoneb EZPAP 3 ml [id number] ANT Administration Amlodipine Besylate 10 mg 09/28/19 09:00 09/29/19 08:46 Norvasc PO 10 mg DAILY ANT Administration Buspirone HCl 15 mg 09/27/19 21:00 09/29/19 08:43 Buspar PO 15 mg BID ANT Administration Calcitriol 0.25 mcg 09/28/19 09:00 09/29/19 08:44 Rocaltrol PO 0.25 mcg DAILY ANT Administration Epoetin Randy-epbx 7,500 unit 09/27/19 17:00 09/27/19 19:52 Retacrit SC 7,500 unit Q7D ANT Administration Ferrous Sulfate 325 mg 09/28/19 08:00 09/29/19 08:46 Feosol PO 325 mg BID-WM ANT Administration Fluoxetine HCl 40 mg 09/28/19 09:00 09/29/19 08:49 Prozac PO 40 mg DAILY ANT Administration Hydralazine HCl 10 mg 09/27/19 21:00 09/29/19 08:45 Apresoline PO 10 mg TID ANT Administration Insulin Glargine 55 units/ 0.55 mls @ 0 mls/hr 09/27/19 21:00 09/28/19 21:28 Miscellaneous Medication SC 0.55 mls HS ANT Administration Sodium Chloride 1,000 mls @ 75 mls/hr 09/29/19 09:30 09/29/19 09:37 Normal Saline 0.9% IV 1,000 mls .[id number] ANT Administration Insulin Human Lispro 0 units 09/27/19 18:56 09/27/19 20:59 Humalog SC 3 units .BEDTIME SLIDING SC PRN Administration Bedtime Correctional Scale Mirtazapine 15 mg 09/27/19 21:00 09/28/19 21:28 Remeron PO 15 mg HS ANT Administration Nicotine 14 mg 09/27/19 22:00 09/28/19 21:30 Nicoderm Patch TD Not Given 2200 ANT Pantoprazole Sodium 40 mg 09/28/19 09:00 09/29/19 08:48 Protonix PO 40 mg DAILY ANT Administration Pregabalin 200 mg 09/27/19 21:00 09/29/19 08:47 Lyrica PO 200 mg TID ANT Administration Sertraline HCl 150 mg 09/28/19 09:00 09/29/19 08:44 Zoloft PO 150 mg DAILY ANT Administration Sodium Chloride 10 ml 09/27/19 18:58 09/27/19 21:04 Flush - Normal Saline IVF 10 ml Q12HR PRN Administration Saline Flush Zolpidem Tartrate 5 mg 09/27/19 18:16 09/27/19 23:58 Ambien PO 5 mg HSPRN PRN Administration Insomnia - Exam General Appearance: NAD, awake alert Eye: PERRL, anicteric sclera Neck: supple Heart: RRR Respiratory: CTAB Gastrointestinal: soft, non-tender Extremities: no cyanosis Hosp A/P (1) OTIS (acute kidney injury) Code(s): N17.9 - ACUTE KIDNEY FAILURE, UNSPECIFIED Status: Acute (2) Diabetes mellitus Code(s): E11.9 - TYPE 2 DIABETES MELLITUS WITHOUT COMPLICATIONS Status: Acute (3) Hematemesis Code(s): K92.0 - HEMATEMESIS Status: Acute (4) Hypokalemia Code(s): E87.6 - HYPOKALEMIA Status: Acute (5) Syncope Code(s): R55 - SYNCOPE AND COLLAPSE Status: Acute - Plan Acute hypoxic respiratory failure most likely in the setting fluid overload in the setting of acute on chronic kidney disease we will continue to monitor for now wean off oxygen as tolerated VQ scan low probability for pulmonary emboli Patient saturating well on room air we will continue to monitor Regarding acute kidney injury on top of CKD possible prerenal component appreciate nephrology input, the plan is to continue albumin infusion for 1 more day as well as blood transfusion no indication for emergent dialysis will follow further nephrology recommendations Anemia most likely of chronic disease Started on Epogen blood transfusion 1 unit today we will follow CBC and transfuse if needed Secondary hyperparathyroidism Monitor electrolytes and replace as needed DVT prophylaxis GI prophylaxis Patient is full code Plan discussed with patient and all questions has been answered Demented clinical improvement patient will probably need 1 to 2 days of hospital stay once cleared by nephrology
[2019-09-29] MEDS: Nicotine 14 MG PATCH TD SCH (20:18)
[2019-09-29] MEDS: Mirtazapine 15 MG TAB PO SCH (20:18)
[2019-09-29] MEDS: Metoprolol Tartrate 25 MG TAB PO SCH (20:18)
[2019-09-29] MEDS: Zolpidem Tartrate 5 MG TAB PO PRN (21:58)
[2019-09-29] MEDS: Insulin Glargine 55 UNITS in Pre-Filled Syringe 1 EACH SC SCH (21:58)
[2019-09-30 04:20] LABS: #Eosinphils 0.1 thou/uL (0.0-0.7); #Lymphocytes 0.4 thou/uL (1.20-3.40); #Monocytes 0.3 thou/uL (0.11-0.59); %Basophils 0.4 % (0.0-1.0); %Lymphocytes 15.9 % (21.0-51.0); %Monocytes 9.3 % (0.0-10.0); %Neutrophils 71.4 % (42.0-75.0); Mean Corpuscular HGB CONC 32.8 g/dL (32.0-36.0); Mean Corpuscular Hemoglobin 30.8 pg (27.0-31.0); Mean Corpuscular Volume 93.7 fL (78.0-98.0); Platelet Count 38 thou/uL (130-400); RBC Distribution Width 14.9 % (11.5-14.5); Red Blood Cell (RBC) Count 2.28 mill/uL (4.20-5.40); White Blood Cell (WBC) Count 2.8 thou/uL (4.8-10.8)
[2019-09-30 04:38] LABS: Anion Gap 14 mmol/L (10-20); BUN (Urea Nitrogen) 53 mg/dL (9.8-20.1); Calc. Creatinine Clearance 24 mL/min (70-130); Calcium 8.1 mg/dL (7.8-10.44); Carbon Dioxide 19 mmol/L (23-31); Chloride 115 mmol/L (98-107); Estimated GFR-MDRD 12; Glucose 119 mg/dL (80-115); Magnesium 1.9 mg/dL (1.6-2.6); Potassium 4.3 mmol/L (3.5-5.1); Sodium 144 mmol/L (136-145)
--- NOTE | 2019-09-30 09:06 | PRG ---
DATE OF SERVICE: 09/30/2019 SUBJECTIVE: Ms. Campos is a 64-year-old white female, who was admitted for generalized malaise. She also was found to have symptomatic anemia, has received 1 unit packed RBC. She has been started on Epogen. In addition, we are following her up for acute kidney injury on top of her chronic renal failure. Renal function is slowly improving with volume repletion. We felt that she may have a superimposed hemodynamically-mediated renal dysfunction on top of her diabetic nephropathy. No new complaints today. No chest pain or shortness of breath. She feels tired. OBJECTIVE: VITAL SIGNS: Blood pressure 163/86, heart rate 76, respiratory rate 18, temperature 98.6, and O2 saturation 94%. GENERAL: The patient is awake, alert, and comfortable, not in overt distress. SKIN: Adequate turgor. HEENT: Pale conjunctivae. Anicteric sclerae. No neck mass. No carotid bruits. No JVD. CHEST: No deformities. LUNGS: Clear breath sounds. HEART: Normal sinus rhythm. No murmur. No gallops. No rubs. ABDOMEN: Globular, soft, and nontender. No masses. EXTREMITIES: No edema. No deformities. MEDICATIONS: Medications of September 30, 2019, was reviewed. LABORATORY DATA: Of September 30, 2019; white count 2.8, hemoglobin 7, and platelet count is 38,000. Sodium 144, potassium 4.3, chloride 115, carbon dioxide 19, BUN 53, creatinine 3.86, calcium 8.1, and magnesium 1.9. ASSESSMENT AND PLAN: 1. Acute kidney injury-superimposed hemodynamically-mediated renal dysfunction. Slowly improving renal function. Continue IV fluid of normal saline 75 mL/hour. 2. Anemia. P.r.n. blood transfusion. We will transfuse 1 unit packed RBC today. Continue weekly Epogen. 3. Hypertension. Increase hydralazine from 10 to 25 mg tablet p.o. t.i.d. 4. Metabolic acidosis-we will start sodium bicarbonate 650 mg tablet t.i.d. Job ID: [id number]
[2019-09-30] MEDS: hydrALAZINE 10 MG TAB PO SCH ×3 (10:32→21:02)
[2019-09-30] MEDS: Sodium Bicarbonate Tab 325 MG TAB PO SCH ×3 (10:32→21:02)
[2019-09-30] MEDS: Pregabalin 50 MG CAP PO SCH ×3 (10:33→21:00)
[2019-09-30] MEDS: Calcitriol 0.25 MCG CAP PO SCH (10:34)
[2019-09-30] MEDS: FLUoxetine HCl 20 MG CAP PO SCH (10:34)
[2019-09-30] MEDS: busPIRone HCl 5 MG TAB PO SCH ×2 (10:34→21:01)
[2019-09-30] MEDS: Ferrous Sulfate 325 MG TAB PO SCH ×2 (10:35→16:13)
[2019-09-30] MEDS: Metoprolol Tartrate 25 MG TAB PO SCH ×2 (10:35→21:01)
[2019-09-30] MEDS: Amlodipine 10 MG TAB PO SCH (10:35)
--- NOTE | 2019-09-30 11:23 | PDOC.HOSPP ---
- Subjective Encounter Date: 09/30/19 Subjective: Patient seen and examined at bedside this morning resting in bed no acute distress however reports some increase and work of breathing but denies any chest pain nausea vomiting currently on IV fluids with some improvement in her renal function - Objective Vital Signs & Weight: Vital Signs (12 hours) Temp Pulse Resp BP Pulse Ox 09/30/19 10:32 78 09/30/19 06:53 78 14 09/30/19 03:25 98.6 F 76 18 163/86 H 94 L 09/30/19 00:01 16 Weight Weight 218 lb I&O: 09/29/19 09/30/19 10/01/19 06:59 06:59 06:59 Intake Total 2380 2040 0 Output Total 950 400 Balance 1430 1640 0 Result Diagrams: 09/30/19 03:48 09/30/19 03:48 Additional Labs: Accuchecks 09/30/19 09/29/19 09/29/19 06:11 21:16 17:16 POC Glucose 78 128 H 119 H 09/29/19 11:23 POC Glucose 171 H Hospitalist ROS - Medication Medications: Active Medications Generic Name Dose Route Start Last Admin Trade Name Freq PRN Reason Stop Dose Admin Acetaminophen/Codeine Phosphate 2 tab 09/27/19 18:14 09/29/19 12:26 Tylenol #3 PO 2 tab BIDPRN PRN Administration Moderate Pain (4-6) Albuterol/Ipratropium 3 ml 09/27/19 19:00 09/30/19 06:53 Duoneb EZPAP 3 ml [id number] ANT Administration Amlodipine Besylate 10 mg 09/28/19 09:00 09/30/19 10:35 Norvasc PO 10 mg DAILY ANT Administration Buspirone HCl 15 mg 09/27/19 21:00 09/30/19 10:34 Buspar PO 15 mg BID ANT Administration Calcitriol 0.25 mcg 09/28/19 09:00 09/30/19 10:34 Rocaltrol PO 0.25 mcg DAILY ANT Administration Epoetin Randy-epbx 7,500 unit 09/27/19 17:00 09/27/19 19:52 Retacrit SC 7,500 unit Q7D ANT Administration Ferrous Sulfate 325 mg 09/28/19 08:00 09/30/19 10:35 Feosol PO 325 mg BID-WM ANT Administration Fluoxetine HCl 40 mg 09/28/19 09:00 09/30/19 10:34 Prozac PO 40 mg DAILY ANT Administration Hydralazine HCl 25 mg 09/30/19 09:00 09/30/19 10:32 Apresoline PO 25 mg TID ANT Administration Insulin Glargine 55 units/ 0.55 mls @ 0 mls/hr 09/27/19 21:00 09/29/19 21:58 Miscellaneous Medication SC 0.55 mls HS ANT Administration Sodium Chloride 1,000 mls @ 75 mls/hr 09/29/19 09:30 09/29/19 21:58 Normal Saline 0.9% IV 1,000 mls .[id number] ANT Administration Insulin Human Lispro 0 units 09/27/19 18:56 09/27/19 20:59 Humalog SC 3 units .BEDTIME SLIDING SC PRN Administration Bedtime Correctional Scale Metoprolol Tartrate 25 mg 09/29/19 21:00 09/30/19 10:35 Lopressor PO 25 mg BID ANT Administration Mirtazapine 15 mg 09/27/19 21:00 09/29/19 20:18 Remeron PO 15 mg HS ANT Administration Nicotine 14 mg 09/27/19 22:00 09/29/19 20:18 Nicoderm Patch TD 14 mg 2200 ANT Administration Pantoprazole Sodium 40 mg 09/28/19 09:00 09/30/19 10:35 Protonix PO 40 mg DAILY ANT Administration Pregabalin 200 mg 09/27/19 21:00 09/30/19 10:33 Lyrica PO 200 mg TID ANT Administration Sertraline HCl 150 mg 09/28/19 09:00 09/30/19 10:34 Zoloft PO 150 mg DAILY ANT Administration Sodium Bicarbonate 650 mg 09/30/19 09:00 09/30/19 10:32 Bicarbonate, Sodium PO 650 mg TID ANT Administration Sodium Chloride 10 ml 09/27/19 18:58 09/27/19 21:04 Flush - Normal Saline IVF 10 ml Q12HR PRN Administration Saline Flush Zolpidem Tartrate 5 mg 09/27/19 18:16 09/29/19 21:58 Ambien PO 5 mg HSPRN PRN Administration Insomnia - Exam General Appearance: NAD, awake alert Eye: PERRL ENT: normocephalic atraumatic Neck: supple Heart: RRR, no murmur Respiratory - other findings: Reduced breath sound bilateral bases no respiratory distress Hosp A/P (1) OTIS (acute kidney injury) Code(s): N17.9 - ACUTE KIDNEY FAILURE, UNSPECIFIED Status: Acute (2) Diabetes mellitus Code(s): E11.9 - TYPE 2 DIABETES MELLITUS WITHOUT COMPLICATIONS Status: Acute (3) Hematemesis Code(s): K92.0 - HEMATEMESIS Status: Acute (4) Hypokalemia Code(s): E87.6 - HYPOKALEMIA Status: Acute (5) Syncope Code(s): R55 - SYNCOPE AND COLLAPSE Status: Acute - Plan Acute hypoxic respiratory failure most likely in the setting fluid overload in the setting of acute on chronic kidney disease we will continue to monitor for now wean off oxygen as tolerated VQ scan low probability for pulmonary emboli Patient saturating well on room air we will continue to monitor Today patient reports some increase in shortness of breath she does sound a little bit wet with IV fluid she is receiving for acute kidney injury will send for chest x-ray Creatinine today with good improvement after receiving albumin and IV fluids regarding acute kidney injury on top of CKD possible prerenal component appreciate nephrology input, the plan is to continue albumin infusion for 1 more day as well as blood transfusion no indication for emergent dialysis will follow further nephrology recommendations Continue monitor electrolytes replace as needed Anemia most likely of chronic disease Started on Epogen blood transfusion 1 unit on admission we will follow CBC and transfuse if needed Secondary hyperparathyroidism Monitor electrolytes and replace as needed DVT prophylaxis GI prophylaxis Patient is full code Plan discussed with patient and all questions has been answered Demented clinical improvement patient will probably need 1 to 2 days of hospital stay once cleared by nephrology
--- NOTE | 2019-09-30 12:10 | RAD ---
EXAM: Chest one view: HISTORY: Respiratory failure elevated d-dimer COMPARISON: 09/27/2019 FINDINGS: Heart size: Stable borderline enlarged. Lungs: Increased linear interstitial markings bilaterally, overall stable without confluent process Costophrenic angle blunting possibly small pleural effusions, stable. IMPRESSION: Stable changes bilaterally. No significant new process.
[2019-09-30] MEDS: Acetaminophen/Codeine 30-300mg Tablet PO PRN ×2 (16:11→23:58)
[2019-09-30] MEDS: Sodium Chloride 0.9% 1,000 ML IV SCH (16:13)
[2019-09-30] MEDS: HumaLOG 300 UNITS/3 ML VIAL SC PRN (18:14)
[2019-09-30] MEDS: Insulin Glargine 55 UNITS in Pre-Filled Syringe 1 EACH SC SCH (21:00)
[2019-09-30] MEDS: Mirtazapine 15 MG TAB PO SCH (21:01)
[2019-09-30] MEDS: Nicotine 14 MG PATCH TD SCH (21:02)
[2019-09-30] MEDS: Zolpidem Tartrate 5 MG TAB PO PRN (23:59)
[2019-10-01] MEDS: Sodium Chloride 0.9% 1,000 ML IV SCH ×2 (02:34→08:08)
[2019-10-01 05:39] LABS: #Eosinphils 0.1 thou/uL (0.0-0.7); #Lymphocytes 0.6 thou/uL (1.20-3.40); #Monocytes 0.3 thou/uL (0.11-0.59); #Neutrophils 2.2 thou/uL (1.40-6.50); %Basophils 0.5 % (0.0-1.0); %Eosinophils 3.7 % (0.0-10.0); %Lymphocytes 17.3 % (21.0-51.0); %Monocytes 10.2 % (0.0-10.0); %Neutrophils 68.2 % (42.0-75.0); Hemoglobin 8.3 g/dL (12.0-16.0); Mean Corpuscular HGB CONC 32.4 g/dL (32.0-36.0); Mean Corpuscular Hemoglobin 30.6 pg (27.0-31.0); Mean Corpuscular Volume 94.3 fL (78.0-98.0); Mean Platelet Volume 11.3 fL (7.4-10.4); Platelet Count 43 thou/uL (130-400); RBC Distribution Width 14.9 % (11.5-14.5); Red Blood Cell (RBC) Count 2.72 mill/uL (4.20-5.40); White Blood Cell (WBC) Count 3.2 thou/uL (4.8-10.8)
[2019-10-01 05:58] LABS: Anion Gap 15 mmol/L (10-20); BUN (Urea Nitrogen) 55 mg/dL (9.8-20.1); Calc. Creatinine Clearance 26 mL/min (70-130); Calcium 8.7 mg/dL (7.8-10.44); Carbon Dioxide 18 mmol/L (23-31); Chloride 117 mmol/L (98-107); Estimated GFR-MDRD 13; Glucose 65 mg/dL (80-115); Magnesium 1.9 mg/dL (1.6-2.6); Potassium 4.2 mmol/L (3.5-5.1); Sodium 146 mmol/L (136-145)
[2019-10-01] MEDS: FLUoxetine HCl 20 MG CAP PO SCH (08:09)
[2019-10-01] MEDS: busPIRone HCl 5 MG TAB PO SCH ×2 (08:09→21:26)
[2019-10-01] MEDS: Sodium Bicarbonate Tab 325 MG TAB PO SCH ×3 (08:10→21:26)
[2019-10-01] MEDS: Calcitriol 0.25 MCG CAP PO SCH (08:10)
[2019-10-01] MEDS: Ferrous Sulfate 325 MG TAB PO SCH ×2 (08:10→16:05)
[2019-10-01] MEDS: hydrALAZINE 10 MG TAB PO SCH ×3 (08:10→21:25)
[2019-10-01] MEDS: Amlodipine 10 MG TAB PO SCH (08:13)
[2019-10-01] MEDS: Metoprolol Tartrate 25 MG TAB PO SCH ×2 (08:14→21:24)
[2019-10-01] MEDS: Pregabalin 50 MG CAP PO SCH ×3 (08:35→21:24)
--- NOTE | 2019-10-01 10:07 | PDOC.HOSPP ---
- Subjective Encounter Date: 10/01/19 Subjective: Patient seen and examined bedside this morning resting bed no acute distress denying any shortness of breath today no fever chills nausea vomiting no significant overnight events reported good urine output - Objective Vital Signs & Weight: Vital Signs (12 hours) Temp Pulse Resp BP BP Pulse Ox 10/01/19 08:05 97.9 F 83 20 169/93 H 93 L 10/01/19 07:12 73 16 10/01/19 05:21 98.2 F 73 20 178/91 H 93 L Weight Weight 227 lb 4.8 oz I&O: 09/30/19 10/01/19 10/02/19 06:59 06:59 06:59 Intake Total 2040 2758 Output Total 400 650 Balance 1640 2108 Result Diagrams: 10/01/19 05:20 10/01/19 05:20 Additional Labs: Accuchecks 10/01/19 09/30/19 09/30/19 05:27 20:36 16:32 POC Glucose 74 103 236 H 09/30/19 11:11 POC Glucose 114 H Hospitalist ROS - Medication Medications: Active Medications Generic Name Dose Route Start Last Admin Trade Name Freq PRN Reason Stop Dose Admin Acetaminophen/Codeine Phosphate 2 tab 09/27/19 18:14 09/30/19 23:58 Tylenol #3 PO 2 tab BIDPRN PRN Administration Moderate Pain (4-6) Albuterol/Ipratropium 3 ml 09/27/19 19:00 10/01/19 07:12 Duoneb EZPAP 3 ml [id number] ANT Administration Amlodipine Besylate 10 mg 09/28/19 09:00 10/01/19 08:13 Norvasc PO 10 mg DAILY ANT Administration Buspirone HCl 15 mg 09/27/19 21:00 10/01/19 08:09 Buspar PO 15 mg BID ANT Administration Calcitriol 0.25 mcg 09/28/19 09:00 10/01/19 08:10 Rocaltrol PO 0.25 mcg DAILY ANT Administration Epoetin Randy-epbx 7,500 unit 09/27/19 17:00 09/27/19 19:52 Retacrit SC 7,500 unit Q7D ANT Administration Ferrous Sulfate 325 mg 09/28/19 08:00 10/01/19 08:10 Feosol PO 325 mg BID-WM ATN Administration Fluoxetine HCl 40 mg 09/28/19 09:00 10/01/19 08:09 Prozac PO 40 mg DAILY ANT Administration Hydralazine HCl 25 mg 09/30/19 09:00 10/01/19 08:10 Apresoline PO 25 mg TID ANT Administration Insulin Glargine 55 units/ 0.55 mls @ 0 mls/hr 09/27/19 21:00 09/30/19 21:00 Miscellaneous Medication SC 0.55 mls HS ANT Administration Sodium Chloride 1,000 mls @ 75 mls/hr 09/29/19 09:30 10/01/19 08:08 Normal Saline 0.9% IV 1,000 mls .[id number] ANT Administration Insulin Human Lispro 0 units 09/27/19 18:56 09/30/19 18:14 Humalog SC 4 unit .MODERATE SLIDING SC PRN Administration Moderate Correctional Scale Insulin Human Lispro 0 units 09/27/19 18:56 09/27/19 20:59 Humalog SC 3 units .BEDTIME SLIDING SC PRN Administration Bedtime Correctional Scale Metoprolol Tartrate 25 mg 09/29/19 21:00 10/01/19 08:14 Lopressor PO 25 mg BID ANT Administration Mirtazapine 15 mg 09/27/19 21:00 09/30/19 21:01 Remeron PO 15 mg HS ANT Administration Nicotine 14 mg 09/27/19 22:00 09/30/19 21:02 Nicoderm Patch TD 14 mg 2200 ANT Administration Pantoprazole Sodium 40 mg 09/28/19 09:00 10/01/19 08:13 Protonix PO 40 mg DAILY ANT Administration Pregabalin 200 mg 09/27/19 21:00 10/01/19 08:35 Lyrica PO 200 mg TID ANT Administration Senna/Docusate Sodium 2 tab 09/27/19 18:58 09/30/19 17:18 Senokot S PO 2 tab BIDPRN PRN Administration Constipation Sertraline HCl 150 mg 09/28/19 09:00 10/01/19 08:13 Zoloft PO 150 mg DAILY ANT Administration Sodium Bicarbonate 650 mg 09/30/19 09:00 10/01/19 08:10 Bicarbonate, Sodium PO 650 mg TID ANT Administration Sodium Chloride 10 ml 09/27/19 18:58 09/27/19 21:04 Flush - Normal Saline IVF 10 ml Q12HR PRN Administration Saline Flush Zolpidem Tartrate 5 mg 09/27/19 18:16 09/30/19 23:59 Ambien PO 5 mg HSPRN PRN Administration Insomnia - Exam General Appearance: NAD, awake alert Neck: supple Heart: RRR Respiratory: CTAB Gastrointestinal: soft, non-tender Skin: normal turgor Musculoskeletal: normal tone Hosp A/P (1) OTIS (acute kidney injury) Code(s): N17.9 - ACUTE KIDNEY FAILURE, UNSPECIFIED Status: Acute (2) Diabetes mellitus Code(s): E11.9 - TYPE 2 DIABETES MELLITUS WITHOUT COMPLICATIONS Status: Acute (3) Hematemesis Code(s): K92.0 - HEMATEMESIS Status: Acute (4) Hypokalemia Code(s): E87.6 - HYPOKALEMIA Status: Acute (5) Syncope Code(s): R55 - SYNCOPE AND COLLAPSE Status: Acute - Plan Acute hypoxic respiratory failure most likely in the setting fluid overload in the setting of acute on chronic kidney disease we will continue to monitor for now wean off oxygen as tolerated VQ scan low probability for pulmonary emboli Patient saturating well on room air we will continue to monitor Today patient reports some increase in shortness of breath she does sound a little bit wet with IV fluid she is receiving for acute kidney injury will send for chest x-ray Creatinine today with good improvement 4.4-->3.8-->3.5- after receiving albumin and IV fluids regarding acute kidney injury on top of CKD possible prerenal component appreciate nephrology input, the plan is to continue IV fluids for now no indication for emergent dialysis will follow further nephrology recommendations Continue monitor electrolytes replace as needed Anemia most likely of chronic disease Started on Epogen blood transfusion 1 unit on admission and status post 1 unit transfusion on September 29 hemoglobin today 8.5 we will follow CBC and transfuse if needed Secondary hyperparathyroidism Monitor electrolytes and replace as needed DVT prophylaxis GI prophylaxis Patient is full code Plan discussed with patient and all questions has been answered Demented clinical improvement patient will probably need 1 to 2 days of hospital stay once cleared by nephrology
--- NOTE | 2019-10-01 11:17 | PRG ---
DATE OF SERVICE: 10/01/2019 SUBJECTIVE: Ms. Campos is a 64-year-old white female who was seen for an acute kidney injury. We felt that the acute kidney injury was a hemodynamically mediated renal dysfunction. We have tried to optimize her hemodynamics. She is currently receiving IV fluid as well as has received albumin infusion and blood transfusion. Renal function is slowly improving over time. She voices no new complaints today. No worsening shortness of breath. No chest pain. OBJECTIVE: VITAL SIGNS: Blood pressure is noted at 169/93, heart rate 83, respiratory rate 20, temperature 97.9, O2 saturation 93% on room air. GENERAL: The patient is awake, alert, obese, comfortable, not in distress. SKIN: Adequate turgor. HEENT: Slightly pale conjunctivae. Anicteric sclerae. No neck mass. No carotid bruits. No JVD. CHEST: No deformities. LUNGS: Clear breath sounds. No wheezing. No crackles. HEART: Normal sinus rhythm. No murmur. No gallops. No rubs. ABDOMEN: Globular, soft, nontender. No masses. EXTREMITIES: No edema. MEDICATIONS: Medications of October 01, 2019, were reviewed. LABORATORY DATA: Laboratories of October 01, 2019; sodium 146, potassium 4.2, chloride 117, carbon dioxide 18, BUN 55, creatinine 3.52, GFR 13 mL/minute, calcium 8.7, magnesium 1.9. White count 3.2 and hemoglobin 8.3. ASSESSMENT AND PLAN: 1. Acute kidney injury - superimposed hemodynamically mediated renal dysfunction. Continue supportive care. Continue IV hydration. In view of the hypernatremia, we will change IV fluid to 1/2 normal saline to run at the same rate of 75 mL/hour. 2. Hypernatremia. As previously mentioned, change IV fluid to 1/2 normal saline. 3. Secondary hyperparathyroidism, currently on calcitriol. 4. Anemia, status post blood transfusion. Continue current management. Currently on weekly Epogen. 5. Remote history of cirrhosis - previous imaging back several years ago showed some liver cirrhosis. Please note, this patient is an alcoholic. I did discuss with the daughter her alcohol intake. Although the patient denies alcohol intake, the daughter tells me she is still drinking. Agree with current management. Recheck basic metabolic panel and CBC in a.m. Job ID: [id number]
[2019-10-01] MEDS: Sodium Chloride 0.45% 1,000 ML IV SCH (12:26)
[2019-10-01] MEDS: Acetaminophen/Codeine 30-300mg Tablet PO PRN (17:24)
[2019-10-01] MEDS: HumaLOG 300 UNITS/3 ML VIAL SC PRN (17:30)
[2019-10-01] MEDS: Mirtazapine 15 MG TAB PO SCH (21:26)
[2019-10-01] MEDS: Zolpidem Tartrate 5 MG TAB PO PRN (21:26)
[2019-10-01] MEDS: Insulin Glargine 55 UNITS in Pre-Filled Syringe 1 EACH SC SCH (21:26)
[2019-10-01] MEDS: Nicotine 14 MG PATCH TD SCH (21:27)
[2019-10-02] MEDS: Sodium Chloride 0.45% 1,000 ML IV SCH (01:11)
[2019-10-02] MEDS: Ondansetron ODT 4 MG TAB PO PRN ×3 (01:11→20:59)
[2019-10-02 04:42] LABS: #Eosinphils 0.1 thou/uL (0.0-0.7); #Lymphocytes 0.5 thou/uL (1.20-3.40); #Monocytes 0.4 thou/uL (0.11-0.59); #Neutrophils 3.6 thou/uL (1.40-6.50); %Eosinophils 2.9 % (0.0-10.0); %Lymphocytes 10.6 % (21.0-51.0); %Neutrophils 78.6 % (42.0-75.0); Hemoglobin 8.5 g/dL (12.0-16.0); Mean Corpuscular HGB CONC 34.1 g/dL (32.0-36.0); Mean Corpuscular Hemoglobin 32.2 pg (27.0-31.0); Mean Corpuscular Volume 94.2 fL (78.0-98.0); Mean Platelet Volume 11.2 fL (7.4-10.4); Platelet Count 43 thou/uL (130-400); RBC Distribution Width 15.2 % (11.5-14.5); Red Blood Cell (RBC) Count 2.64 mill/uL (4.20-5.40); White Blood Cell (WBC) Count 4.6 thou/uL (4.8-10.8)
[2019-10-02 05:05] LABS: Anion Gap 14 mmol/L (10-20); BUN (Urea Nitrogen) 54 mg/dL (9.8-20.1); Calc. Creatinine Clearance 27 mL/min (70-130); Calcium 8.6 mg/dL (7.8-10.44); Carbon Dioxide 18 mmol/L (23-31); Chloride 115 mmol/L (98-107); Estimated GFR-MDRD 13; Glucose 66 mg/dL (80-115); Potassium 4.3 mmol/L (3.5-5.1); Sodium 143 mmol/L (136-145)
[2019-10-02] MEDS: busPIRone HCl 5 MG TAB PO SCH ×2 (08:11→22:19)
[2019-10-02] MEDS: Pregabalin 50 MG CAP PO SCH (08:11)
[2019-10-02] MEDS: Metoprolol Tartrate 25 MG TAB PO SCH ×2 (08:18→22:20)
[2019-10-02] MEDS: hydrALAZINE 10 MG TAB PO SCH ×3 (08:19→22:19)
[2019-10-02] MEDS: FLUoxetine HCl 20 MG CAP PO SCH (08:19)
[2019-10-02] MEDS: Sodium Bicarbonate Tab 325 MG TAB PO SCH ×3 (08:20→22:19)
[2019-10-02] MEDS: Calcitriol 0.25 MCG CAP PO SCH (08:20)
[2019-10-02] MEDS: Ferrous Sulfate 325 MG TAB PO SCH ×2 (08:20→16:36)
[2019-10-02] MEDS: Amlodipine 10 MG TAB PO SCH (08:21)
--- NOTE | 2019-10-02 11:02 | PRG ---
DATE OF SERVICE: 10/02/2019 SUBJECTIVE: Ms. Campos is a 64-year-old white female with known history of chronic renal failure from diabetic nephropathy and was admitted for an acute kidney injury. I felt that she had a superimposed prerenal azotemia. IV hydration has been done - colloids, crystalloids, and blood transfusion. She has no new complaints today. No chest pain or shortness of breath. She was noted to be mildly hypernatremic yesterday. For that reason, we changed IV fluid from normal saline to one half-normal saline. No new complaints today. No chest pain or shortness of breath. No new concern. I notice the patient was quite sleepy in the last few days. I will be adjusting Lyrica from t.i.d. to probably a b.i.d. dosing. OBJECTIVE: VITAL SIGNS: Blood pressure 169/92, heart rate 72, respiratory rate 16, and O2 saturation 96%. GENERAL: The patient is sleepy, arousable, comfortable, and obese. SKIN: Adequate turgor. HEENT: Slightly pale conjunctivae. Anicteric sclerae. NECK: No neck mass. No carotid bruits. No JVD. CHEST: No deformities. LUNGS: Clear breath sounds. No wheezing. No crackles. HEART: Normal sinus rhythm. No murmur. No gallops. No rubs. ABDOMEN: Globular, soft, and nontender. No masses. EXTREMITIES: No edema. No deformities. Status post right BKA. MEDICATIONS: Medications of October 02, 2019, reviewed. LABORATORY DATA: October 02, 2019, white count 4.6 and hemoglobin 8.5. Sodium 143, potassium 4.3, chloride 115, carbon dioxide 18, BUN 54, creatinine 3.51, glucose 66, and calcium 8.6. ASSESSMENT AND PLAN: 1. Acute kidney injury on top of her chronic renal failure. Creatinine noted 3.51. We will give another day of gentle IV hydration with this patient. If renal function is about the same tomorrow, consider discharging her tomorrow. No indication for any acute dialytic intervention. 2. Anemia, on weekly Epogen. Continue current dosing. 3. Sleepiness. Decrease Lyrica from 200 mg tablet t.i.d. to 200 mg tablet b.i.d. - also adjusted for renal dosing. 4. Cirrhosis - the patient has been counseled regarding discontinuation of alcohol intake. She said she will try to comply with this. Overall agree with current management. Recheck basic metabolic and CBC in a.m. Job ID: [id number]
--- NOTE | 2019-10-02 11:51 | PDOC.HOSPP ---
- Subjective Encounter Date: 10/02/19 (f/u OTIS with CKD) Encounter Time: 11:49 Subjective: Pt reports she feels angry because she wants to go home and feels lied to. She denies any v/abd pain/cp/sob. She reports nausea earlier that resolved. She denies any other new sx. RN reports pt oxygen levels were in the high 80's earlier and oxygen was placed. - Objective Vital Signs & Weight: Vital Signs (12 hours) Temp Pulse Resp BP Pulse Ox 10/02/19 11:10 97.9 F 68 20 143/78 H 90 L 10/02/19 07:12 72 16 10/02/19 07:01 98.2 F 72 20 169/92 H 96 10/02/19 05:30 98.4 F 72 16 176/91 H 92 L 10/02/19 01:20 65 155/89 H 93 L Weight Weight 234 lb 3.2 oz I&O: 10/01/19 10/02/19 10/03/19 06:59 06:59 06:59 Intake Total 2758 2228 Output Total 650 400 Balance 2108 1828 Result Diagrams: 10/02/19 03:59 10/02/19 03:59 Additional Labs: Accuchecks 10/02/19 10/02/19 10/01/19 10:49 05:48 17:33 POC Glucose 84 80 173 H EKG Reviewed by me: Yes (tele - sinus 70's) Hospitalist ROS - Medication Medications: Active Medications Generic Name Dose Route Start Last Admin Trade Name Freq PRN Reason Stop Dose Admin Acetaminophen/Codeine Phosphate 2 tab 09/27/19 18:14 10/01/19 17:24 Tylenol #3 PO 2 tab BIDPRN PRN Administration Moderate Pain (4-6) Albuterol/Ipratropium 3 ml 09/27/19 19:00 10/02/19 07:12 Duoneb EZPAP 3 ml [id number] ANT Administration Amlodipine Besylate 10 mg 09/28/19 09:00 10/02/19 08:21 Norvasc PO 10 mg DAILY ANT Administration Buspirone HCl 15 mg 09/27/19 21:00 10/02/19 08:11 Buspar PO 15 mg BID ANT Administration Calcitriol 0.25 mcg 09/28/19 09:00 10/02/19 08:20 Rocaltrol PO 0.25 mcg DAILY ANT Administration Epoetin Randy-epbx 7,500 unit 09/27/19 17:00 09/27/19 19:52 Retacrit SC 7,500 unit Q7D ANT Administration Ferrous Sulfate 325 mg 09/28/19 08:00 10/02/19 08:20 Feosol PO 325 mg BID-WM ANT Administration Fluoxetine HCl 40 mg 09/28/19 09:00 10/02/19 08:19 Prozac PO 40 mg DAILY ANT Administration Hydralazine HCl 25 mg 09/30/19 09:00 10/02/19 08:19 Apresoline PO 25 mg TID ANT Administration Insulin Glargine 55 units/ 0.55 mls @ 0 mls/hr 09/27/19 21:00 10/01/19 21:26 Miscellaneous Medication SC Not Given HS ANT Sodium Chloride 1,000 mls @ 75 mls/hr 10/01/19 10:45 10/02/19 01:11 1/2 Normal Saline IV 1,000 mls .[id number] ANT Administration Insulin Human Lispro 0 units 09/27/19 18:56 10/01/19 17:30 Humalog SC 2 unit .MODERATE SLIDING SC PRN Administration Moderate Correctional Scale Insulin Human Lispro 0 units 09/27/19 18:56 09/27/19 20:59 Humalog SC 3 units .BEDTIME SLIDING SC PRN Administration Bedtime Correctional Scale Metoprolol Tartrate 25 mg 09/29/19 21:00 10/02/19 08:18 Lopressor PO 25 mg BID ANT Administration Mirtazapine 15 mg 09/27/19 21:00 10/01/19 21:26 Remeron PO 15 mg HS ANT Administration Nicotine 14 mg 09/27/19 22:00 10/01/19 21:27 Nicoderm Patch TD 14 mg 2200 ANT Administration Ondansetron HCl 4 mg 09/27/19 18:58 10/02/19 08:20 Zofran Odt PO 4 mg Q6H PRN Administration Nausea/Vomiting Pantoprazole Sodium 40 mg 09/28/19 09:00 10/02/19 08:20 Protonix PO 40 mg DAILY ANT Administration Senna/Docusate Sodium 2 tab 09/27/19 18:58 09/30/19 17:18 Senokot S PO 2 tab BIDPRN PRN Administration Constipation Sertraline HCl 150 mg 09/28/19 09:00 10/02/19 08:12 Zoloft PO 150 mg DAILY ANT Administration Sodium Bicarbonate 650 mg 09/30/19 09:00 10/02/19 08:20 Bicarbonate, Sodium PO 650 mg TID ANT Administration Sodium Chloride 10 ml 09/27/19 18:58 09/27/19 21:04 Flush - Normal Saline IVF 10 ml Q12HR PRN Administration Saline Flush Zolpidem Tartrate 5 mg 09/27/19 18:16 10/01/19 21:26 Ambien PO 5 mg HSPRN PRN Administration Insomnia - Exam General Appearance: NAD Heart: RRR, no murmur Respiratory - other findings: bibasilar rales, no audible wheezing/rhonchi Gastrointestinal: soft, non-tender, non-distended, normal bowel sounds Extremities - other findings: R BKA, left - no edema Hosp A/P (1) OTIS (acute kidney injury) Code(s): N17.9 - ACUTE KIDNEY FAILURE, UNSPECIFIED Status: Acute (2) Pancytopenia Code(s): D61.818 - OTHER PANCYTOPENIA Status: Chronic (3) Hyperparathyroidism Code(s): E21.3 - HYPERPARATHYROIDISM, UNSPECIFIED Status: Chronic (4) Diabetes mellitus Code(s): E11.9 - TYPE 2 DIABETES MELLITUS WITHOUT COMPLICATIONS Status: Chronic Qualifiers: Diabetes mellitus type: type 2 - Plan Pt with volume overload based on my exam - oxygen requiring again. collaborated with Dr. Fang and will d/c IVF, he requests to hold on lasix for now. DM - hypoglycemia this AM - will lower long-acting insulin from 55 units to 20 units tonight HTN - controlled Pancytopenia stable and chronic - likely secondary to cirrhosis and hx of alcohol abuse COPD - no sx or signs of exacerbation Consult PT/OT for evaluation/assess strength dvt prophy - scd if tolerated on left leg (right BKA) gi prophy - not indicated code status full reviewed plan of care with patient, no questions or further needs at end of eval. discussed with patient that we cannot force her to stay in the hospital. I recommend she stay until cleared by Dr. Fang. Pt will require a oxygen saturation study prior to discharge to determine if home oxygen is needed.
[2019-10-02] MEDS: Acetaminophen/Codeine 30-300mg Tablet PO PRN (15:14)
[2019-10-02] MEDS ORDERED: Pregabalin 50 MG CAP PO SCH (21:00)
[2019-10-02] MEDS: Nicotine 14 MG PATCH TD SCH (22:19)
[2019-10-02] MEDS: Mirtazapine 15 MG TAB PO SCH (22:19)
[2019-10-02] MEDS: Insulin Glargine 20 UNITS in Pre-Filled Syringe 1 EACH SC SCH (23:28)
[2019-10-03 04:38] LABS: #Eosinphils 0.1 thou/uL (0.0-0.7); #Lymphocytes 0.8 thou/uL (1.20-3.40); #Monocytes 0.4 thou/uL (0.11-0.59); #Neutrophils 3.6 thou/uL (1.40-6.50); %Basophils 0.4 % (0.0-1.0); %Lymphocytes 16.3 % (21.0-51.0); %Monocytes 7.4 % (0.0-10.0); Hemoglobin 9.3 g/dL (12.0-16.0); Mean Corpuscular HGB CONC 33.6 g/dL (32.0-36.0); Mean Corpuscular Hemoglobin 31.7 pg (27.0-31.0); Mean Corpuscular Volume 94.4 fL (78.0-98.0); Mean Platelet Volume 10.9 fL (7.4-10.4); Platelet Count 49 thou/uL (130-400); Red Blood Cell (RBC) Count 2.92 mill/uL (4.20-5.40); White Blood Cell (WBC) Count 4.9 thou/uL (4.8-10.8)
[2019-10-03 04:58] LABS: Anion Gap 15 mmol/L (10-20); BUN (Urea Nitrogen) 57 mg/dL (9.8-20.1); Calc. Creatinine Clearance 26 mL/min (70-130); Carbon Dioxide 19 mmol/L (23-31); Chloride 115 mmol/L (98-107); Estimated GFR-MDRD 12; Glucose 84 mg/dL (80-115); Potassium 4.3 mmol/L (3.5-5.1); Sodium 145 mmol/L (136-145)
--- NOTE | 2019-10-03 08:46 | PRG ---
DATE OF SERVICE: 10/03/2019 SUBJECTIVE: Ms. Campos is a 64-year-old white female, who was seen by the Renal Service for her acute kidney injury on top of her chronic renal failure. She was empirically volume repleted. There was some stabilization of the renal function. However, this morning, creatinine has gone up from 3.5 to most recent value of 3.7. In addition, she was noted to be more confused. Please note, I adjusted her Lyrica yesterday to 200 mg p.o. b.i.d. No complaints of chest pain or shortness of breath. OBJECTIVE: VITAL SIGNS: Blood pressure 173/80, heart rate 74, respiratory rate 20, O2 saturation 92%, and temperature 97.6. GENERAL: The patient is awake, but confused, not in overt distress, obese. SKIN: Adequate turgor; no ecchymoses HEENT: Slightly pale conjunctivae. Anicteric sclerae. No neck mass. No carotid bruits. No JVD. CHEST: No deformities. LUNGS: Clear breath sounds. No wheezing. No crackles. HEART: Normal sinus rhythm. No murmur. No gallops. No rubs. ABDOMEN: Globular, soft, nontender. No masses. EXTREMITIES: No edema. No deformities. MEDICATIONS: Medications of October 03, 2019, were reviewed. LABORATORY DATA: Laboratories of October 03, 2019; white count 4.9, hemoglobin 9.3. Sodium 145, potassium 4.3, chloride 115, carbon dioxide 19, BUN 57, creatinine 3.76, GFR 12 mL/minute, calcium 9.0. ASSESSMENT AND PLAN: 1. Acute kidney injury/chronic renal failure, fluctuating creatinine. Please note, IV fluid was discontinued yesterday. My bias is to resume back IV fluid-half- normal saline to run at 75 mL/hour. 2. Confusion. We will hold off Lyrica. In addition, I discontinued the Prozac since the patient is already on Zoloft. Furthermore, her Remeron was also discontinued. 3. Chronic obstructive pulmonary disease, p.r.n. neb treatment. 4. Chronic anemia. Continuing weekly Epogen and patient's p.r.n. blood transfusion. 5. Metabolic acidosis, currently on sodium bicarbonate. Recheck CBC, basic metabolic in a.m. Job ID: [id number] [facility]
[2019-10-03 11:09] LABS: Actual Bicarbonate (HCO3a) 18.4 mEq/L (22-28); Base Excess (BEa) -8.2 mEq/L (-2.0 to +3.0); CO2 Tension 42.6 mmHg (35.0-45.0); Calcium, Ionized (arterial) 1.17 mmol/L (1.12-1.30); Carboxyhemoglobin (COHb) 0.7 gm% (0.0-3.0); Hemoglobin (Hb) 9.5 g/dL (12.0-16.0); O2 Tension (PaO2), arterial 65.6 mmHg (> 80.0); Potassium - ABG Lab 4.38 mmol/L (3.70-5.30)
[2019-10-03] MEDS ORDERED: Lorazepam 2 MG/ML VIAL ONE (11:11)
[2019-10-03 11:21] LABS: Puncture Site L.R.; pH, Arterial 7.25 (7.35-7.45)
--- NOTE | 2019-10-03 11:28 | RAD ---
Portable frontal chest radiograph: 10/03/2019 COMPARISON: 09/30/2019 HISTORY: Shortness of breath FINDINGS: Stable enlargement of the cardiac silhouette. Pulmonary vascular congestion and perihilar i nterstitial prominence noted, slightly more conspicuous than on the 09/30/2019 exam. There is mild hazy density in the lung bases. No large volume pleural effusion. IMPRESSION: Pulmonary vascular congestion and perihilar interstitial prominence may signify a mild de gree of interstitial edema. Interstitial infectious pneumonitis cannot be excluded.
[2019-10-03 11:35] LABS: Lactic Acid 0.7 mmol/L (0.5-2.2)
[2019-10-03 11:38] LABS: Anion Gap 18 mmol/L (10-20); BUN (Urea Nitrogen) 57 mg/dL (9.8-20.1); Calc. Creatinine Clearance 26 mL/min (70-130); Calcium 9.1 mg/dL (7.8-10.44); Carbon Dioxide 17 mmol/L (23-31); Chloride 115 mmol/L (98-107); Estimated GFR-MDRD 12; Glucose 104 mg/dL (80-115); Potassium 4.5 mmol/L (3.5-5.1); Sodium 145 mmol/L (136-145)
--- NOTE | 2019-10-03 12:14 | PDOC.EVN ---
Event Note - Event Note Event Note: CODE GREEN: Called to patient bedside due to respiratory distress, hypoxia and AMS. Known COPD and renal disease. Notified by RN this morning that patient had decreased urine output (pure wick). Bladder scan advised with durán catheter if >200. Patient being followed by Dr. Fang and seen this AM. AMS felt to be associated with lyrica which was discontinued. Vitals were stable. I came to patient bedside and she appeared to be in distress, answered to her name and opened her eyes on command, otherwise unable to complete neuro exam. Patient agitated. Sats prior to me entering the room were 84%, per RN, O2 was increased to 4L by NC and improved to 92%. Concern for AMS, however patient appeared to be in discomfort with grunting and yelling upon palpation of suprapubic region. Distress in my opinion felt to be due to urine retention, though respiratory work-up and CT head imaging indicated given above changes. Bladder scan done earlier showed 300-600 mLs in the bladder. Durán had not placed due to inability to lay her flat and degree of agitation with no sitter at bedside. Decision made to transfer to CCU ([facility] full) with plans to place her on BiPAP, place Durán. Orders also placed for Stat CXR, portable. ABG and repeat labs. (CBC, CMP, lactic acid). CT head to be done once stable. Unable to obtain NIH, but patient moving all extremities and was responsive to name. On arrival to CCU, patient placed on BiPAP and given ativan 1 mg IV due to agitation despite restraints. Durán eventually successfully placed with 900 mLs out. CXR done. ABG showed patient acidodic. Has been on Bicarb PO, but due to AMS not given. Per bench worker apprentice, patient apparently had a fall last night, unwitnessed. Found sitting by her bed. Dr. Darling came to bedside and advised to keep her in CCU for 24 hours given acidosis. Advised Sodium Bicarb IV at 75 mLs/hr.
[2019-10-03] MEDS: busPIRone HCl 5 MG TAB PO SCH (12:23)
[2019-10-03] MEDS: Ferrous Sulfate 325 MG TAB PO SCH ×2 (12:23→16:46)
[2019-10-03] MEDS: Amlodipine 10 MG TAB PO SCH (12:23)
[2019-10-03] MEDS: Metoprolol Tartrate 25 MG TAB PO SCH ×2 (12:24→20:32)
[2019-10-03] MEDS: hydrALAZINE 10 MG TAB PO SCH ×3 (12:24→20:31)
[2019-10-03] MEDS: Calcitriol 0.25 MCG CAP PO SCH (12:24)
[2019-10-03] MEDS: Sodium Bicarbonate Tab 325 MG TAB PO SCH ×3 (12:25→20:32)
[2019-10-03] MEDS ORDERED: Sodium Bicarbonate 150 MEQ in Dextrose 5% in Water 1,000 ML IV SCH (12:30)
--- NOTE | 2019-10-03 13:26 | CT ---
BRAIN CT WITHOUT IV CONTRAST: HISTORY: Altered mental status. Injury from a fall yesterday. COMPARISON: 07/23/2014. FINDINGS: No focal mass or midline shift. No intra- or extraaxial hemorrhage. Sinuses and mastoids are clear of acute process. IMPRESSION: No mass or bleed or other acute process. Stable from prior study. POS: RRE
[2019-10-03 15:33] LABS: Actual Bicarbonate (HCO3a) 18.1 mEq/L (22-28); CO2 Tension 39.3 mmHg (35.0-45.0); Calcium, Ionized (arterial) 1.18 mmol/L (1.12-1.30); Carboxyhemoglobin (COHb) 0.5 gm% (0.0-3.0); Hemoglobin (Hb) 9.5 g/dL (12.0-16.0); O2 Tension (PaO2), arterial 87.2 mmHg (> 80.0); Potassium - ABG Lab 4.69 mmol/L (3.70-5.30); pH, Arterial 7.28 (7.35-7.45)
[2019-10-03 15:47] LABS: ALV-art Gradient 77.575 (0-20); Puncture Site L.R.
[2019-10-03] MEDS: Sodium Chloride 0.45% 1,000 ML IV SCH (16:46)
[2019-10-03] MEDS: methylPREDNISolone Sod Succ 40 MG VIAL IVP SCH ×2 (18:28→23:23)
[2019-10-03] MEDS: Insulin Glargine 20 UNITS in Pre-Filled Syringe 1 EACH SC SCH (20:32)
[2019-10-04 03:52] LABS: #Lymphocytes 0.2 thou/uL (1.20-3.40); #Monocytes 0.1 thou/uL (0.11-0.59); #Neutrophils 2.2 thou/uL (1.40-6.50); %Eosinophils 1.2 % (0.0-10.0); %Lymphocytes 9.7 % (21.0-51.0); %Monocytes 2.7 % (0.0-10.0); %Neutrophils 86.5 % (42.0-75.0); Hemoglobin 8.2 g/dL (12.0-16.0); Mean Corpuscular HGB CONC 32.6 g/dL (32.0-36.0); Mean Corpuscular Volume 95.1 fL (78.0-98.0); Mean Platelet Volume 11.5 fL (7.4-10.4); Platelet Count 34 thou/uL (130-400); RBC Distribution Width 14.8 % (11.5-14.5); Red Blood Cell (RBC) Count 2.63 mill/uL (4.20-5.40); White Blood Cell (WBC) Count 2.5 thou/uL (4.8-10.8)
[2019-10-04 04:01] LABS: Anion Gap 20 mmol/L (10-20); BUN (Urea Nitrogen) 59 mg/dL (9.8-20.1); Calc. Creatinine Clearance 26 mL/min (70-130); Calcium 8.3 mg/dL (7.8-10.44); Carbon Dioxide 16 mmol/L (23-31); Chloride 114 mmol/L (98-107); Estimated GFR-MDRD 12; Glucose 167 mg/dL (80-115); Potassium 4.5 mmol/L (3.5-5.1); Sodium 145 mmol/L (136-145)
[2019-10-04] MEDS: Sodium Chloride 0.45% 1,000 ML IV SCH ×2 (05:05→10:41)
[2019-10-04] MEDS: methylPREDNISolone Sod Succ 40 MG VIAL IVP SCH ×4 (05:05→23:44)
[2019-10-04] MEDS: Lactulose 10 GM/15 ML Oral Solution PR SCH ×4 (06:02→23:44)
--- NOTE | 2019-10-04 07:19 | CON ---
DATE OF CONSULTATION: HISTORY OF PRESENT ILLNESS: Foster Campos is a 64-year-old morbidly obese female, who has been in the hospital here now since 09/26. Today, on 10/02, she became somewhat lethargic with change in mental status, was transferred to the ICU. At about 1130 hours in the morning, we have been consulted regarding her altered mental status and what appears to be metabolic acidosis. On painful stimuli, she is slightly more responsive, but unable to give any significant history. She is on BiPAP at this time. She had an echocardiogram done, which shows evidence of diastolic dysfunction. It appears that she has limitation to activity. PAST MEDICAL HISTORY: Previous medical history is pertinent for; 1. Renal failure. 2. Apparently, cirrhosis. 3. COPD. 4. Depression. 5. UTI. PAST SURGICAL HISTORY: Previous surgeries included; 1. Right BK amputation. 2. Hysterectomy. 3. Ankle surgery. 4. Shoulder. 5. Colonoscopy. 6. Back surgery. SOCIAL HISTORY: She is living at [place]. I dialed 2 numbers to talk to family members, they are not available. She has smoked up to a pack for 20 years. Currently, smoking maybe 4 cigarettes a day. MEDICATIONS: Her medicines include a long list; 1. Hydralazine. 2. Norvasc. 3. Prozac. 4. Lyrica. 5. Zoloft. 6. Protonix. 7. Remeron. 8. Insulin. 9. Ambien. 10. Lasix. 11. Tizanidine. 12. BuSpar. Some of her medicines for depression and psychosis have been discontinued. PHYSICAL EXAMINATION: GENERAL: On examination, she barely opens her eyes with painful stimuli. VITAL SIGNS: Pulse 75, blood pressure 114/93, saturations are 90%, respiratory rate 18. CHEST: Decreased breath sounds. No wheezing. CARDIAC: Normal S1, S2. No gallop. ABDOMEN: EXTREMITIES: Trace edema. LABORATORY DATA: Creatinine 3.75, bicarb is 17. PO2 is 87, pCO2 of 39, Additional lab; blood sugar was normal. Thyroid function was normal. Ammonia level not done during this admission. X-ray shows no obvious infiltrates. ASSESSMENT: 1. Metabolic encephalopathy, hypoventilation. 2. Morbid obesity, probably may have underlying sleep apnea. 3. Renal failure, on a bicarb drip. 4. History of liver failure. PLAN: Pulmonary mcgrath, it is unclear whether she is a full code. I tried to contact 2 numbers, none of them were available. I would continue present BiPAP. I have added a rate on her BiPAP. Obviously, if condition gets worse, she may require intubation and vent support. TIME SPENT: This is a 45-minute critical care time. Job ID: [id number]
--- NOTE | 2019-10-04 09:58 | PRG ---
DATE OF SERVICE: 10/04/2019 SUBJECTIVE: Ms. Campos is a 64-year-old white female, followed up by the Renal Service for her chronic renal failure/acute kidney injury. She has been empirically volume repleted in the past due to the worsening renal dysfunction. Renal function has been stabilizing. Yesterday, she was noted to have decreased mentation. With a history of cirrhosis, the patient's ammonia level was checked and was noted to be elevated at 144. Lactulose is being given. Some improvement in mentation has been noted. OBJECTIVE: VITAL SIGNS: Blood pressure is 164/99, heart rate is 73, respiratory rate is 14, and O2 saturation is 99%. GENERAL: The patient is lethargic, but arousable, not in distress. SKIN: Adequate turgor. HEENT: She has slightly pale conjunctivae. Anicteric sclerae. No neck mass. No carotid bruits. No JVD. The patient is obese. LUNGS: Decreased breath sounds. HEART: Normal sinus rhythm. No murmur. No gallops. No rubs. ABDOMEN: Globular, soft, and nontender. No masses. EXTREMITIES: No edema. No deformities. MEDICATIONS: Medications of October 04, 2019, were reviewed. LABORATORY DATA: October 04, 2019; white count 2.5, hemoglobin 8.2, sodium 145, potassium 4.5, chloride 114, carbon dioxide 16, BUN 59, creatinine 3.82, glucose 167, calcium 8.3. October 03, 2019, ammonia level was 144. ASSESSMENT AND PLAN: 1. Acute kidney injury/chronic renal failure. Renal function is relatively stable. There is no indication for any dialytic intervention. Continue supportive care. If needed, we can resume IV hydration. 2. Decreased mentation - several medications had been discontinued. Ammonia level was checked, which was noted to be elevated. Lactulose has been given. Rectal tube has been placed. 3. Anemia. P.r.n. blood transfusion. Continue supportive care. 4. Secondary hyperparathyroidism, currently on calcitriol 0.25 mcg tablet daily. This patient is a DNR. Case discussed with the patient's daughter. Agree with current management. Job ID: [id number]
[2019-10-04] MEDS: Amlodipine 10 MG TAB PO SCH (10:24)
[2019-10-04] MEDS: Ferrous Sulfate 325 MG TAB PO SCH ×2 (10:24→17:35)
[2019-10-04] MEDS: Calcitriol 0.25 MCG CAP PO SCH (10:25)
[2019-10-04] MEDS: hydrALAZINE 10 MG TAB PO SCH ×3 (10:25→21:28)
[2019-10-04] MEDS: Sodium Bicarbonate Tab 325 MG TAB PO SCH ×3 (10:25→21:29)
[2019-10-04] MEDS: Metoprolol Tartrate 25 MG TAB PO SCH ×2 (10:25→21:28)
--- NOTE | 2019-10-04 15:40 | PDOC.HOSPP ---
- Subjective Encounter Date: 10/04/19 Subjective: Confused. - Objective Vital Signs & Weight: Vital Signs (12 hours) Temp Pulse Resp BP Pulse Ox 10/04/19 15:21 83 155/85 H 10/04/19 15:10 83 15 96 10/04/19 11:00 98.8 F 10/04/19 10:38 79 17 98 10/04/19 10:25 73 10/04/19 10:24 73 10/04/19 08:00 98.4 F 100 10/04/19 07:27 73 14 99 10/04/19 07:26 74 14 99 10/04/19 04:00 98.5 F Weight Weight 234 lb 3.2 oz Most Recent Monitor Data Heart Rate from ECG 83 NIBP 155/85 NIBP BP-Mean 108 Respiration from ECG 22 SpO2 98 I&O: 10/03/19 10/04/19 10/05/19 06:59 06:59 06:59 Intake Total 1265 1215 Output Total 875 1550 950 Balance 390 335 950 Result Diagrams: 10/04/19 03:33 10/04/19 03:33 Additional Labs: Accuchecks 10/04/19 10/03/19 10/03/19 06:04 20:34 15:34 POC Glucose 177 H 130 H 112 H Hospitalist ROS - Medication Medications: Active Medications Generic Name Dose Route Start Last Admin Trade Name Freq PRN Reason Stop Dose Admin Acetaminophen/Codeine Phosphate 2 tab 09/27/19 18:14 10/02/19 15:14 Tylenol #3 PO 2 tab BIDPRN PRN Administration Moderate Pain (4-6) Albuterol/Ipratropium 3 ml 10/03/19 18:30 10/04/19 15:10 Duoneb NEB 3 ml [id number] ANT Administration Amlodipine Besylate 10 mg 09/28/19 09:00 10/04/19 10:24 Norvasc PO Not Given DAILY ANT Calcitriol 0.25 mcg 09/28/19 09:00 10/04/19 10:25 Rocaltrol PO Not Given DAILY ANT Epoetin Randy-epbx 7,500 unit 09/27/19 17:00 09/27/19 19:52 Retacrit SC 7,500 unit Q7D ANT Administration Ferrous Sulfate 325 mg 09/28/19 08:00 10/04/19 10:24 Feosol PO Not Given BID-WM [facility] Hydralazine HCl 25 mg 09/30/19 09:00 10/04/19 15:21 Apresoline PO Not Given TID [facility] Insulin Glargine 20 units/ 0.2 mls @ 0 mls/hr 10/02/19 21:00 10/03/19 20:32 Miscellaneous Medication SC Not Given HS ANT Sodium Bicarbonate 150 meq/ 1,150 mls @ 75 mls/hr 10/03/19 12:30 10/03/19 14: 35 Dextrose/Water IV 1,150 mls INF ANT Administration Sodium Chloride 1,000 mls @ 75 mls/hr 10/03/19 16:00 10/04/19 10:41 1/2 Normal Saline IV 1,000 mls .[id number] ANT Administration Insulin Human Lispro 0 units 09/27/19 18:56 10/01/19 17:30 Humalog SC 2 unit .MODERATE SLIDING SC PRN Administration Moderate Correctional Scale Insulin Human Lispro 0 units 09/27/19 18:56 09/27/19 20:59 Humalog SC 3 units .BEDTIME SLIDING SC PRN Administration Bedtime Correctional Scale Lactulose 200 gm 10/04/19 06:00 10/04/19 12:38 Lactulose 10 Gm/15ml Oral Mei MS 200 gm Q6HR ANT Administration Methylprednisolone Sodium Succinate 40 mg 10/03/19 18:00 10/04/19 11:34 Solu-Medrol IVP 40 mg Q6HR ANT Administration Metoprolol Tartrate 25 mg 09/29/19 21:00 10/04/19 10:25 Lopressor PO Not Given BID [facility] Ondansetron HCl 4 mg 09/27/19 18:58 10/02/19 20:59 Zofran Odt PO 4 mg Q6H PRN Administration Nausea/Vomiting Pantoprazole Sodium 40 mg 09/28/19 09:00 10/04/19 10:25 Protonix PO Not Given DAILY [facility] Senna/Docusate Sodium 2 tab 09/27/19 18:58 09/30/19 17:18 Senokot S PO 2 tab BIDPRN PRN Administration Constipation Sodium Bicarbonate 650 mg 09/30/19 09:00 10/04/19 15:21 Bicarbonate, Sodium PO Not Given TID ANT Sodium Chloride 10 ml 09/27/19 18:58 09/27/19 21:04 Flush - Normal Saline IVF 10 ml Q12HR PRN Administration Saline Flush - Exam General Appearance: awake alert ENT: normocephalic atraumatic Neck: supple Heart: RRR Respiratory: normal chest expansion, no tachypnea Gastrointestinal: soft Neurological: cranial nerve grossly intact, no focal deficits Hosp A/P (1) Hepatic encephalopathy Code(s): K72.90 - HEPATIC FAILURE, UNSPECIFIED WITHOUT COMA Status: Acute (2) Alcoholic cirrhosis of liver Code(s): K70.30 - ALCOHOLIC CIRRHOSIS OF LIVER WITHOUT ASCITES Status: Acute (3) Acute respiratory failure with hypoxia and hypercapnia Code(s): J96.01 - ACUTE RESPIRATORY FAILURE WITH HYPOXIA; J96.02 - ACUTE RESPIRATORY FAILURE WITH HYPERCAPNIA Status: Acute (4) High anion gap metabolic acidosis Code(s): E87.2 - ACIDOSIS Status: Acute (5) OTIS (acute kidney injury) Code(s): N17.9 - ACUTE KIDNEY FAILURE, UNSPECIFIED Status: Acute (6) Diabetes mellitus Code(s): E11.9 - TYPE 2 DIABETES MELLITUS WITHOUT COMPLICATIONS Status: Chronic Qualifiers: Diabetes mellitus type: type 2 - Plan The patient's mental status improving compared to yesterday. She was able to take her lactulose orally daily. Continue BiPAP at night. Continue IV fluids and bicarbonate per nephrology. Continue [place] catheter for urine retention. No indication for HD this time.
--- NOTE | 2019-10-04 15:59 | PRG ---
DATE OF SERVICE: 10/04/2019 SUBJECTIVE: This morning patient is more responsive, though still encephalopathic. OBJECTIVE: VITAL SIGNS: Pulse 73, respiratory rate 14, saturations are 99% on BiPAP. I's and O's have been positive. NEUROLOGICAL: Opens her eyes, moans and groans, slightly more appropriate. CHEST: Decreased breath sounds. Rhonchi. CARDIAC: Normal S1, S2. No gallop. ABDOMEN: No masses. LABORATORY DATA: Creatinine 3.8, BUN 59, platelet count is low at 34,000. White count 2.5, H and H IMPRESSION: 1. Respiratory failure, metabolic encephalopathy. 2. Baseline chronic obstructive pulmonary disease. 3. Obesity. 4. Renal failure. 5. Unknown liver problem. 6. Thrombocytopenia. MESFIN: We can try and discontinue her BiPAP, low-flow O2. She remains relatively stable. She can be transferred out of the ICU to a monitored bed. We will follow. TIME SPENT: One-half hour of critical care time. Job ID: [id number]
[2019-10-04] MEDS: EPOETIN ALFA-EPBX (ESRD) 4,000 UNIT/ML VIAL SC SCH (18:11)
[2019-10-04] MEDS: Insulin Glargine 20 UNITS in Pre-Filled Syringe 1 EACH SC SCH (21:28)
[2019-10-05] MEDS: Lactulose 10 GM/15 ML Oral Solution PR SCH ×3 (05:46→18:46)
[2019-10-05] MEDS: methylPREDNISolone Sod Succ 40 MG VIAL IVP SCH (05:46)
[2019-10-05] MEDS: Sodium Chloride 0.45% 1,000 ML IV SCH (07:33)
[2019-10-05] MEDS: Amlodipine 10 MG TAB PO SCH (08:17)
[2019-10-05] MEDS: Metoprolol Tartrate 25 MG TAB PO SCH ×2 (08:18→21:22)
[2019-10-05] MEDS: hydrALAZINE 10 MG TAB PO SCH ×2 (08:18→16:49)
[2019-10-05] MEDS: Ferrous Sulfate 325 MG TAB PO SCH ×2 (08:20→18:12)
[2019-10-05] MEDS: Calcitriol 0.25 MCG CAP PO SCH (09:00)
[2019-10-05] MEDS: Sodium Bicarbonate Tab 325 MG TAB PO SCH ×3 (09:00→21:18)
--- NOTE | 2019-10-05 09:37 | PRG ---
DATE OF SERVICE: 10/05/2019 SUBJECTIVE: This morning, remains in the ICU. OBJECTIVE: VITAL SIGNS: Pulse 68, blood pressure 120/80, sats 90% on room air, respirations 20. GENERAL: She is complaining of difficulty breathing, somewhat somnolent, though answers questions appropriately. CHEST: Decreased breath sounds. No wheezing. CARDIAC: Normal S1 and S2. No gallops. EXTREMITIES: Trace edema. LABORATORY DATA: No labs were done today. Her previous ammonia level was elevated. ASSESSMENT: 1. End-stage liver disease, elevated ammonia, encephalopathy. 2. Morbid obesity, ongoing alcohol and tobacco abuse. 3. Probably sleep apnea, chronic obstructive pulmonary disease. PLAN: Neb treatments, steroids, nocturnal BiPAP. Discussed with her daughter at length. She has made the patient a DNR. We will eventually transfer another ICU. One-half hour of critical time. Job ID: [id number]
--- NOTE | 2019-10-05 10:11 | PRG ---
DATE OF SERVICE: 10/05/2019 SERVICE: Renal Medicine. SUBJECTIVE: Ms. Campos is a 64-year-old white female, followed up for her chronic renal failure. She has had fluctuating creatinine in the past. Empiric volume repletion has been given. Renal function is relatively stable. During this hospitalization, she had mental status change. She was found to have had hepatic encephalopathy with elevated ammonia level. This morning, she is noted to be more awake, but confused. She inadvertently pulled her central line. OBJECTIVE: VITAL SIGNS: Blood pressure is noted at 156/84, heart rate 79, respiratory rate 21, and O2 saturation 93%. GENERAL: Noted to be awake, but confused, belligerent, obese. SKIN: Adequate turgor. HEENT: Slightly pale conjunctivae. Anicteric sclerae. NECK: No neck mass. No carotid bruits. No JVD. CHEST: No deformities. LUNGS: Clear breath sounds. HEART: Normal sinus rhythm. No murmur. No gallops. No rubs. ABDOMEN: Globular, soft, and nontender. No masses. EXTREMITIES: No edema. No deformities. MEDICATIONS: Medications of October 05, 2019, were reviewed. LABORATORY DATA: Laboratories of October 04, 2019; potassium 4.5, BUN 59, creatinine 3.82, and sodium 145. White count 2.5, hemoglobin 8.2. ASSESSMENT AND PLAN: 1. Hepatic encephalopathy, clinically improving with lactulose. Ammonia level was initially at 144. Continue supportive care. 2. Acute kidney injury/chronic renal failure. As of October 04, 2019, creatinine was stable. We will be rechecking another basic metabolic panel. Continue gentle volume repletion. 3. Anemia. P.r.n. blood transfusion. The patient is currently on an Epogen regimen and iron supplementation. Continue current management. Recheck CBC and basic metabolic panel in a.m. Job ID: [id number]
[2019-10-05 12:07] LABS: ALT (SGPT) 9 U/L (8-55); AST (SGOT) 19 U/L (5-34); Albumin 4.2 g/dL (3.4-4.8); Alkaline Phosphatase 81 U/L (40-110); Anion Gap 20 mmol/L (10-20); BUN (Urea Nitrogen) 71 mg/dL (9.8-20.1); Bilirubin, Total 0.8 mg/dL (0.2-1.2); Calc. Creatinine Clearance 25 mL/min (70-130); Calcium 8.3 mg/dL (7.8-10.44); Carbon Dioxide 13 mmol/L (23-31); Chloride 114 mmol/L (98-107); Estimated GFR-MDRD 12; Globulin 3.2 g/dL (2.4-3.5); Glucose 184 mg/dL (80-115); Potassium 4.6 mmol/L (3.5-5.1); Protein, Total 7.4 g/dL (6.0-8.3); Sodium 142 mmol/L (136-145)
--- NOTE | 2019-10-05 13:49 | PDOC.HOSPP ---
- Subjective Encounter Date: 10/05/19 Subjective: The patient is alert today. She is somewhat confused. She follows commands and able to speak in a coherent manner. - Objective Vital Signs & Weight: Vital Signs (12 hours) Temp Pulse BP Pulse Ox 10/05/19 11:00 93 L 10/05/19 08:18 92 197/101 H 10/05/19 08:17 94 10/05/19 08:08 96 10/05/19 08:00 95 10/05/19 07:00 98.5 F 10/05/19 03:07 94 L 10/05/19 03:00 98.5 F Weight Weight 234 lb 3.2 oz Most Recent Monitor Data Heart Rate from ECG 78 NIBP 154/84 NIBP BP-Mean 107 Respiration from ECG 21 SpO2 95 I&O: 10/04/19 10/05/19 10/06/19 06:59 06:59 06:59 Intake Total 1215 1751 363 Output Total 1550 2715 200 Balance -335 -964 163 Result Diagrams: 10/04/19 03:33 10/05/19 11:10 Additional Labs: Accuchecks 10/05/19 10/05/19 10/04/19 10:29 03:58 21:28 POC Glucose 186 H 171 H 159 H 10/04/19 10/04/19 16:27 11:19 POC Glucose 160 H 157 H Hospitalist ROS - Medication Medications: Active Medications Generic Name Dose Route Start Last Admin Trade Name Freq PRN Reason Stop Dose Admin Acetaminophen/Codeine Phosphate 2 tab 09/27/19 18:14 10/02/19 15:14 Tylenol #3 PO 2 tab BIDPRN PRN Administration Moderate Pain (4-6) Albuterol/Ipratropium 3 ml 10/03/19 18:30 10/05/19 13:21 Duoneb NEB Not Given [id number] ANT Amlodipine Besylate 10 mg 09/28/19 09:00 10/05/19 08:17 Norvasc PO 10 mg DAILY ANT Administration Calcitriol 0.25 mcg 09/28/19 09:00 10/05/19 09:00 Rocaltrol PO Not Given DAILY ANT Epoetin Randy-epbx 7,500 unit 09/27/19 17:00 10/04/19 18:11 Retacrit SC 7,500 unit Q7D ANT Administration Ferrous Sulfate 325 mg 09/28/19 08:00 10/05/19 08:20 Feosol PO 325 mg BID-WM ANT Administration Hydralazine HCl 25 mg 09/30/19 09:00 10/05/19 08:18 Apresoline PO 25 mg TID ANT Administration Insulin Glargine 20 units/ 0.2 mls @ 0 mls/hr 10/02/19 21:00 10/04/19 21:28 Miscellaneous Medication SC Not Given HS ANT Sodium Bicarbonate 150 meq/ 1,150 mls @ 75 mls/hr 10/03/19 12:30 10/03/19 14: 35 Dextrose/Water IV 1,150 mls INF ANT Administration Sodium Chloride 1,000 mls @ 75 mls/hr 10/03/19 16:00 10/05/19 07:33 1/2 Normal Saline IV 1,000 mls .[id number] ANT Administration Insulin Human Lispro 0 units 09/27/19 18:56 10/01/19 17:30 Humalog SC 2 unit .MODERATE SLIDING SC PRN Administration Moderate Correctional Scale Insulin Human Lispro 0 units 09/27/19 18:56 09/27/19 20:59 Humalog SC 3 units .BEDTIME SLIDING SC PRN Administration Bedtime Correctional Scale Lactulose 200 gm 10/04/19 06:00 10/05/19 05:46 Lactulose 10 Gm/15ml Oral Mei IA 200 gm Q6HR ANT Administration Metoprolol Tartrate 25 mg 09/29/19 21:00 10/05/19 08:18 Lopressor PO 25 mg BID ANT Administration Ondansetron HCl 4 mg 09/27/19 18:58 10/02/19 20:59 Zofran Odt PO 4 mg Q6H PRN Administration Nausea/Vomiting Pantoprazole Sodium 40 mg 09/28/19 09:00 10/05/19 08:17 Protonix PO 40 mg DAILY ANT Administration Senna/Docusate Sodium 2 tab 09/27/19 18:58 09/30/19 17:18 Senokot S PO 2 tab BIDPRN PRN Administration Constipation Sodium Bicarbonate 650 mg 09/30/19 09:00 10/05/19 09:00 Bicarbonate, Sodium PO Not Given TID ANT Sodium Chloride 10 ml 09/27/19 18:58 09/27/19 21:04 Flush - Normal Saline IVF 10 ml Q12HR PRN Administration Saline Flush - Exam General Appearance: awake alert Neck: supple Respiratory: normal chest expansion, no tachypnea Gastrointestinal: soft Neurological: cranial nerve grossly intact, no focal deficits Hosp A/P (1) Hepatic encephalopathy Code(s): K72.90 - HEPATIC FAILURE, UNSPECIFIED WITHOUT COMA Status: Acute (2) Alcoholic cirrhosis of liver Code(s): K70.30 - ALCOHOLIC CIRRHOSIS OF LIVER WITHOUT ASCITES Status: Acute (3) Acute respiratory failure with hypoxia and hypercapnia Code(s): J96.01 - ACUTE RESPIRATORY FAILURE WITH HYPOXIA; J96.02 - ACUTE RESPIRATORY FAILURE WITH HYPERCAPNIA Status: Acute (4) High anion gap metabolic acidosis Code(s): E87.2 - ACIDOSIS Status: Acute (5) OTIS (acute kidney injury) Code(s): N17.9 - ACUTE KIDNEY FAILURE, UNSPECIFIED Status: Acute (6) Diabetes mellitus Code(s): E11.9 - TYPE 2 DIABETES MELLITUS WITHOUT COMPLICATIONS Status: Chronic Qualifiers: Diabetes mellitus type: type 2 - Plan The patient's mental status improving compared to yesterday. She was able to take her lactulose orally daily. Continue BiPAP at night. Creatinine level is stable. The patient is able to take orally and IV fluids were discontinued. Liquid stool is present in her Flexi-Seal. We will hold lactulose, check C. difficile, start low-salt diabetic diet, and monitor her response. The goal is to remove the Flexi-Seal later today. We will reinitiate lactulose once her diarrhea has resolved. PT and OT evaluation.
[2019-10-05] MEDS ORDERED: hydrALAZINE 25 MG TAB PO SCH (16:15)
[2019-10-05] MEDS ORDERED: ALPRAZolam 0.25 MG TAB PO SCH (20:00)
[2019-10-05] MEDS: Insulin Glargine 20 UNITS in Pre-Filled Syringe 1 EACH SC SCH (21:18)
[2019-10-05] MEDS: hydrALAZINE 25 MG TAB PO SCH (21:22)
[2019-10-06] MEDS: Lactulose 10 GM/15 ML Oral Solution PR SCH ×2 (01:22→05:56)
[2019-10-06] MEDS: Sodium Chloride 0.45% 1,000 ML IV SCH ×3 (01:48→23:52)
[2019-10-06 04:11] LABS: Anion Gap 15 mmol/L (10-20); BUN (Urea Nitrogen) 71 mg/dL (9.8-20.1); Calc. Creatinine Clearance 27 mL/min (70-130); Calcium 7.8 mg/dL (7.8-10.44); Carbon Dioxide 19 mmol/L (23-31); Chloride 111 mmol/L (98-107); Estimated GFR-MDRD 13; Glucose 133 mg/dL (80-115); Potassium 4.1 mmol/L (3.5-5.1); Sodium 141 mmol/L (136-145)
[2019-10-06 04:14] LABS: #Eosinphils 0.1 thou/uL (0.0-0.7); #Lymphocytes 0.9 thou/uL (1.20-3.40); #Monocytes 0.6 thou/uL (0.11-0.59); %Basophils 0.2 % (0.0-1.0); %Eosinophils 1.4 % (0.0-10.0); %Lymphocytes 15.6 % (21.0-51.0); %Monocytes 10.7 % (0.0-10.0); %Neutrophils 72.1 % (42.0-75.0); Hemoglobin 8.6 g/dL (12.0-16.0); Mean Corpuscular HGB CONC 32.6 g/dL (32.0-36.0); Mean Corpuscular Hemoglobin 30.8 pg (27.0-31.0); Mean Corpuscular Volume 94.4 fL (78.0-98.0); Mean Platelet Volume 11.2 fL (7.4-10.4); Platelet Count 41 thou/uL (130-400); Red Blood Cell (RBC) Count 2.81 mill/uL (4.20-5.40); White Blood Cell (WBC) Count 5.5 thou/uL (4.8-10.8)
--- NOTE | 2019-10-06 08:29 | PRG ---
DATE OF SERVICE: 10/06/2019 SUBJECTIVE: Ms. Campos is a 64-year-old white female, followed up by the Renal Service for her acute kidney injury on top of chronic renal failure. She was deemed to have superimposed hemodynamically-mediated renal dysfunction. Renal function has been stable. She has received IV hydration. During this hospital course, she developed mental status change secondary to hepatic encephalopathy. Ammonia level was noted to be elevated. She was given lactulose with improvement of mentation. This morning, she is less confused. She has developed diarrhea and for that reason, the lactulose has been discontinued. No new complaints today. OBJECTIVE: VITAL SIGNS: Blood pressure 173/91, heart rate 66, respiratory rate 20, temperature 97.8, O2 saturation 94%. GENERAL: The patient is awake, mildly confused, obese, not in distress. SKIN: Adequate turgor. HEENT: Slightly pale conjunctivae. Anicteric sclerae. NECK: No neck mass. No carotid bruits. No JVD. CHEST: No deformities. LUNGS: Clear breath sounds. No wheezing. No crackles. HEART: Normal sinus rhythm. No murmur. No gallops. No rubs. ABDOMEN: Globular, soft. Nontender. No masses. EXTREMITIES: Status post right BKA. Left leg, no edema. MEDICATIONS: Medications of October 06, 2019, reviewed. LABORATORY DATA: Laboratories of October 06, 2019; white count 5.5, hemoglobin 8.6, sodium 141, potassium 4.1, chloride 111, carbon dioxide 19, BUN 71, creatinine 3.67, and calcium 7.8. Ammonia level is 74. ASSESSMENT AND PLAN: 1. Acute kidney injury/chronic renal failure, superimposed prerenal azotemia; stable renal function. Creatinine noted at 3.67. No indication for any dialytic intervention. 2. Chronic renal failure, most likely from diabetic nephropathy. Continue supportive care. 3. Confusion - secondary to hepatic encephalopathy. Ammonia level is much improved. Continue supportive care. Please note, this patient has significant history of alcohol intake and has still been drinking prior to the most recent hospitalization. 4. Anemia. P.r.n. blood transfusion. Continue weekly Epogen and iron supplementation. 5. Recheck basic metabolic panel and CBC in a.m. Job ID: [id number]
[2019-10-06] MEDS: Sodium Bicarbonate Tab 325 MG TAB PO SCH ×3 (08:54→21:04)
[2019-10-06] MEDS: Calcitriol 0.25 MCG CAP PO SCH (08:54)
[2019-10-06] MEDS: Amlodipine 10 MG TAB PO SCH (08:55)
[2019-10-06] MEDS: hydrALAZINE 25 MG TAB PO SCH ×3 (08:56→21:03)
[2019-10-06] MEDS: Metoprolol Tartrate 25 MG TAB PO SCH ×2 (08:56→21:03)
[2019-10-06] MEDS: Ferrous Sulfate 325 MG TAB PO SCH ×2 (08:58→17:49)
[2019-10-06] MEDS ORDERED: methylPREDNISolone Sod Succ 40 MG VIAL IVP SCH (09:00)
--- NOTE | 2019-10-06 09:34 | PRG ---
DATE OF SERVICE: 10/06/2019 SUBJECTIVE: This morning, she is much more awake, responsive. OBJECTIVE: VITAL SIGNS: Temperature 97, pulse 66, sats are 94% on 2 L, respiratory rate 22, and blood pressure 130/80. CHEST: No wheezing or crackles. CARDIAC: Normal S1 and S2. No gallops. ABDOMEN: No mass. LABORATORY DATA: Her BUN and creatinine are 71 and 3.6. Ammonia level is 74. ASSESSMENT AND PLAN: 1. Respiratory failure, much improved. 2. Metabolic encephalopathy, better. 3. Liver failure, elevated ammonia better. Pulmonary Critical Care will follow at a distance. I had multiple discussions with the family. She was a DNR. Job ID: [id number]
[2019-10-06] MEDS ORDERED: Mag-Al 1200 mg/1200 mg/30 ML UDCUP PO PRN (09:41)
--- NOTE | 2019-10-06 09:58 | PDOC.HOSPP ---
- Subjective Encounter Date: 10/06/19 Subjective: The patient is still confused today. She is tolerating her diet. No significant output in her Flexi-Seal. - Objective Vital Signs & Weight: Vital Signs (12 hours) Temp Pulse Resp BP Pulse Ox 10/06/19 08:56 66 10/06/19 08:55 66 10/06/19 07:41 97.8 F 66 22 H 173/91 H 94 L 10/06/19 07:27 66 18 94 L 10/06/19 04:00 98 F 67 20 179/95 H 96 10/06/19 02:48 16 10/06/19 00:00 98.3 F 77 20 135/68 96 10/05/19 23:00 70 16 95 Weight Weight 234 lb 3.2 oz Most Recent Monitor Data Heart Rate from ECG 78 NIBP 154/84 NIBP BP-Mean 107 Respiration from ECG 21 SpO2 95 I&O: 10/05/19 10/06/19 10/07/19 06:59 06:59 06:59 Intake Total 1751 3473 Output Total 0535 1825 Balance -964 1648 Result Diagrams: 10/06/19 03:51 10/06/19 03:51 Additional Labs: Accuchecks 10/06/19 10/05/19 10/05/19 08:51 20:03 17:37 POC Glucose 127 H 145 H 140 H 10/05/19 10:29 POC Glucose 186 H Hospitalist ROS - Medication Medications: Active Medications Generic Name Dose Route Start Last Admin Trade Name Freq PRN Reason Stop Dose Admin Acetaminophen/Codeine Phosphate 2 tab 09/27/19 18:14 10/02/19 15:14 Tylenol #3 PO 2 tab BIDPRN PRN Administration Moderate Pain (4-6) Albuterol/Ipratropium 3 ml 10/03/19 18:30 10/06/19 07:27 Duoneb NEB 3 ml [id number] ANT Administration Amlodipine Besylate 10 mg 09/28/19 09:00 10/06/19 08:55 Norvasc PO 10 mg DAILY ANT Administration Calcitriol 0.25 mcg 09/28/19 09:00 10/06/19 08:54 Rocaltrol PO 0.25 mcg DAILY ANT Administration Calcium Carbonate 1,000 mg 09/27/19 18:58 10/05/19 18:12 Tums PO 1,000 mg Q4H PRN Administration Heartburn or Indigestion Epoetin Randy-epbx 7,500 unit 09/27/19 17:00 10/04/19 18:11 Retacrit SC 7,500 unit Q7D ANT Administration Ferrous Sulfate 325 mg 09/28/19 08:00 10/06/19 08:58 Feosol PO 325 mg BID-WM ANT Administration Hydralazine HCl 25 mg 10/05/19 21:00 10/06/19 08:56 Apresoline PO 25 mg TID ANT Administration Insulin Glargine 20 units/ 0.2 mls @ 0 mls/hr 10/02/19 21:00 10/05/19 21:18 Miscellaneous Medication SC 0.2 mls HS ANT Administration Sodium Bicarbonate 150 meq/ 1,150 mls @ 75 mls/hr 10/03/19 12:30 10/03/19 14: 35 Dextrose/Water IV 1,150 mls INF ANT Administration Sodium Chloride 1,000 mls @ 75 mls/hr 10/03/19 16:00 10/06/19 01:48 1/2 Normal Saline IV 1,000 mls .[id number] ANT Administration Insulin Human Lispro 0 units 09/27/19 18:56 10/01/19 17:30 Humalog SC 2 unit .MODERATE SLIDING SC PRN Administration Moderate Correctional Scale Insulin Human Lispro 0 units 09/27/19 18:56 09/27/19 20:59 Humalog SC 3 units .BEDTIME SLIDING SC PRN Administration Bedtime Correctional Scale Metoprolol Tartrate 25 mg 09/29/19 21:00 10/06/19 08:56 Lopressor PO 25 mg BID ANT Administration Ondansetron HCl 4 mg 09/27/19 18:58 10/02/19 20:59 Zofran Odt PO 4 mg Q6H PRN Administration Nausea/Vomiting Pantoprazole Sodium 40 mg 09/28/19 09:00 10/06/19 08:55 Protonix PO 40 mg DAILY ANT Administration Senna/Docusate Sodium 2 tab 09/27/19 18:58 09/30/19 17:18 Senokot S PO 2 tab BIDPRN PRN Administration Constipation Sodium Bicarbonate 650 mg 09/30/19 09:00 10/06/19 08:54 Bicarbonate, Sodium PO 650 mg TID ANT Administration Sodium Chloride 10 ml 09/27/19 18:58 09/27/19 21:04 Flush - Normal Saline IVF 10 ml Q12HR PRN Administration Saline Flush Hosp A/P (1) Hepatic encephalopathy Code(s): K72.90 - HEPATIC FAILURE, UNSPECIFIED WITHOUT COMA Status: Acute (2) Alcoholic cirrhosis of liver Code(s): K70.30 - ALCOHOLIC CIRRHOSIS OF LIVER WITHOUT ASCITES Status: Acute (3) Acute respiratory failure with hypoxia and hypercapnia Code(s): J96.01 - ACUTE RESPIRATORY FAILURE WITH HYPOXIA; J96.02 - ACUTE RESPIRATORY FAILURE WITH HYPERCAPNIA Status: Acute (4) High anion gap metabolic acidosis Code(s): E87.2 - ACIDOSIS Status: Acute (5) OTIS (acute kidney injury) Code(s): N17.9 - ACUTE KIDNEY FAILURE, UNSPECIFIED Status: Acute (6) Diabetes mellitus Code(s): E11.9 - TYPE 2 DIABETES MELLITUS WITHOUT COMPLICATIONS Status: Chronic Qualifiers: Diabetes mellitus type: type 2 (7) Acute retention of urine Code(s): R33.8 - OTHER RETENTION OF URINE Status: Acute (8) UTI (urinary tract infection) Status: Acute (9) C. difficile colitis Code(s): A04.72 - ENTEROCOLITIS D/T CLOSTRIDIUM DIFFICILE, NOT SPCF RECUR Status: Acute - Plan The patient's mental status is stable. Hepatic encephalopathy is improving. Continue lactulose and titrate to achieve 3 bowel movements a day. Patient remains on IV fluids for her acute on chronic kidney injury. Her creatinine level is not changing significantly. Given her history of liver cirrhosis and hypoxia we will try to limit her fluids. Stool is positive for C. difficile. Start oral vancomycin. Her UA is also positive. I will start IV ceftriaxone. Continue to encourage oral intake. PT and OT evaluation.
--- NOTE | 2019-10-06 10:29 | RAD ---
XR Chest 1 View HISTORY: Hypoxia COMPARISON: 10/03/2019 FINDINGS: The heart size is enlarged. There is pulmonary vascular congestion. No pneumothoraces, lobar consolid ation or large effusions are seen.
[2019-10-06] MEDS: cefTRIAXone\\ROCEPHIN 1 GM in Sodium Chloride 0.9% 100 ML IVPB SCH (11:33)
[2019-10-06] MEDS: Vancomycin HCl 25 MG/ML Oral PO SCH ×3 (11:34→23:32)
[2019-10-06] MEDS: HumaLOG 300 UNITS/3 ML VIAL SC PRN ×2 (12:55→17:53)
[2019-10-06] MEDS: Acetaminophen 325 MG TAB PO PRN (14:04)
[2019-10-06 15:46] VITALS: BMI 40.1
[2019-10-06] MEDS: Insulin Glargine 20 UNITS in Pre-Filled Syringe 1 EACH SC SCH (21:03)
[2019-10-07 04:20] LABS: Anion Gap 16 mmol/L (10-20); BUN (Urea Nitrogen) 68 mg/dL (9.8-20.1); Calc. Creatinine Clearance 28 mL/min (70-130); Calcium 8.1 mg/dL (7.8-10.44); Carbon Dioxide 18 mmol/L (23-31); Chloride 113 mmol/L (98-107); Estimated GFR-MDRD 13; Glucose 107 mg/dL (80-115); Potassium 3.9 mmol/L (3.5-5.1); Sodium 143 mmol/L (136-145)
[2019-10-07 04:28] LABS: #Eosinphils 0.1 thou/uL (0.0-0.7); #Lymphocytes 0.8 thou/uL (1.20-3.40); #Monocytes 0.5 thou/uL (0.11-0.59); #Neutrophils 3.8 thou/uL (1.40-6.50); %Basophils 0.1 % (0.0-1.0); %Eosinophils 1.8 % (0.0-10.0); %Lymphocytes 14.9 % (21.0-51.0); %Monocytes 9.6 % (0.0-10.0); %Neutrophils 73.6 % (42.0-75.0); Hemoglobin 9.2 g/dL (12.0-16.0); Mean Corpuscular HGB CONC 34.3 g/dL (32.0-36.0); Mean Corpuscular Hemoglobin 32.1 pg (27.0-31.0); Mean Corpuscular Volume 93.8 fL (78.0-98.0); Mean Platelet Volume 11.4 fL (7.4-10.4); Platelet Count 35 thou/uL (130-400); Platelet Morphology Comment Appears Decreased; RBC Distribution Width 14.6 % (11.5-14.5); Red Blood Cell (RBC) Count 2.88 mill/uL (4.20-5.40); White Blood Cell (WBC) Count 5.2 thou/uL (4.8-10.8)
[2019-10-07] MEDS: Vancomycin HCl 25 MG/ML Oral PO SCH ×3 (05:35→17:36)
[2019-10-07] MEDS: Sodium Bicarbonate Tab 325 MG TAB PO SCH ×3 (08:24→21:31)
[2019-10-07] MEDS: Metoprolol Tartrate 25 MG TAB PO SCH ×2 (08:25→21:31)
[2019-10-07] MEDS: Amlodipine 10 MG TAB PO SCH (08:26)
[2019-10-07] MEDS: hydrALAZINE 25 MG TAB PO SCH ×3 (08:26→21:30)
[2019-10-07] MEDS: Ferrous Sulfate 325 MG TAB PO SCH ×2 (08:26→17:36)
[2019-10-07] MEDS: predniSONE 20 MG TAB PO SCH (08:27)
[2019-10-07] MEDS: Calcitriol 0.25 MCG CAP PO SCH (08:27)
[2019-10-07] MEDS: Acetaminophen/Codeine 30-300mg Tablet PO PRN ×2 (08:41→17:37)
--- NOTE | 2019-10-07 09:08 | PRG ---
DATE OF SERVICE: 10/07/2019 SERVICE: Renal Medicine. SUBJECTIVE: Ms. Campos is a 64-year-old white female, followed up for her acute kidney injury on top of her chronic renal failure. Creatinine has been fluctuating, but this morning, it is noted to be improved in the last few days. She voices no new complaints. She also developed hepatic encephalopathy. She was given lactulose. She is now diagnosed with C difficile colitis. The patient voices no new complaints today. No complaints of chest pain or shortness of breath. OBJECTIVE: VITAL SIGNS: Blood pressure 177/84, heart rate 75,respiratory rate 24, temperature 98.3, and O2 saturation 95%. GENERAL: The patient is awake, comfortable, not in distress, obese. SKIN: Adequate turgor. HEENT: Slightly pale conjunctivae. Anicteric sclerae. NECK: No neck mass. No carotid bruits. No JVD. CHEST: No deformities. LUNGS: Clear breath sounds. No wheezing. No crackles. HEART: Normal sinus rhythm. No murmurs. No gallops. No rubs. ABDOMEN: Globular, soft, and nontender. No masses. EXTREMITIES: No edema. Status post right BKA. MEDICATIONS: Medications of October 07, 2019, were reviewed. LABORATORY DATA: Laboratories of October 07, 2019; white count 5.2, hemoglobin 9.2. Sodium 143, potassium 3.9, carbon dioxide 18, BUN 68, creatinine 3.47, and calcium 8.1. Ammonia level 65. ASSESSMENT AND PLAN: 1. Hepatic encephalopathy, clinically much improved. Status post lactulose. Ammonia level is much decreased. 2. Acute kidney injury on top of chronic renal failure. Stable renal function. Continue current management. No indication for any dialytic intervention. Case discussed at length with the daughter. 3. Clostridium difficile colitis, on oral vancomycin. 4. Anemia, currently on Epogen and iron supplementation. 5. Secondary hyperparathyroidism. The patient is on calcitriol. We will recheck basic metabolic panel and CBC in a.m. Job ID: [id number] [facility]
[2019-10-07] MEDS: cefTRIAXone\\ROCEPHIN 1 GM in Sodium Chloride 0.9% 100 ML IVPB SCH (10:56)
[2019-10-07] MEDS: Phenazopyridine HCl 97.5 MG TABLET PO SCH ×2 (12:02→17:36)
[2019-10-07] MEDS: Cephalexin 250 MG CAP PO SCH ×2 (12:02→17:38)
[2019-10-07] MEDS: HumaLOG 300 UNITS/3 ML VIAL SC PRN ×2 (12:05→17:40)
--- NOTE | 2019-10-07 13:14 | PDOC.HOSPP ---
- Subjective Encounter Date: 10/07/19 Subjective: The patient is alert and oriented today. Her hepatic encephalopathy appears to be resolved. - Objective Vital Signs & Weight: Vital Signs (12 hours) Temp Pulse Resp BP BP Pulse Ox 10/07/19 11:34 78 16 98 10/07/19 09:20 71 19 132/62 10/07/19 08:26 75 20 177/84 H 95 10/07/19 08:20 95 10/07/19 08:00 98.3 F 75 24 H 177/83 H 95 10/07/19 06:41 70 18 94 L Weight Admit Weight 227 lb 4.8 oz Weight 234 lb 3.2 oz Most Recent Monitor Data Heart Rate from ECG 78 NIBP 154/84 NIBP BP-Mean 107 Respiration from ECG 21 SpO2 95 I&O: 10/06/19 10/07/19 10/08/19 06:59 06:59 06:59 Intake Total 3473 550 Output Total 1825 1000 Balance 1648 -450 Result Diagrams: 10/07/19 03:58 10/07/19 03:58 Additional Labs: Accuchecks 10/07/19 10/07/19 10/06/19 11:17 08:28 21:05 POC Glucose 187 H 110 193 H 10/06/19 17:15 POC Glucose 187 H Hospitalist ROS - Medication Medications: Active Medications Generic Name Dose Route Start Last Admin Trade Name Freq PRN Reason Stop Dose Admin Acetaminophen 650 mg 09/27/19 18:58 10/06/19 14:04 Tylenol PO 650 mg Q4H PRN Administration Headache/Fever/Mild Pain (1-3) Acetaminophen/Codeine Phosphate 2 tab 09/27/19 18:14 10/07/19 08:41 Tylenol #3 PO 2 tab BIDPRN PRN Administration Moderate Pain (4-6) Albuterol/Ipratropium 3 ml 10/03/19 18:30 10/07/19 11:34 Duoneb NEB 3 ml [id number] ANT Administration Amlodipine Besylate 10 mg 09/28/19 09:00 10/07/19 08:26 Norvasc PO 10 mg DAILY ANT Administration Calcitriol 0.25 mcg 09/28/19 09:00 10/07/19 08:27 Rocaltrol PO 0.25 mcg DAILY ANT Administration Calcium Carbonate 1,000 mg 09/27/19 18:58 10/05/19 18:12 Tums PO 1,000 mg Q4H PRN Administration Heartburn or Indigestion Cephalexin 250 mg 10/07/19 12:00 10/07/19 12:02 Keflex PO 250 mg Q6HR ANT Administration Epoetin Randy-epbx 7,500 unit 09/27/19 17:00 10/04/19 18:11 Retacrit SC 7,500 unit Q7D ANT Administration Ferrous Sulfate 325 mg 09/28/19 08:00 10/07/19 08:26 Feosol PO 325 mg BID-WM ANT Administration Hydralazine HCl 25 mg 10/05/19 21:00 10/07/19 08:26 Apresoline PO 25 mg TID ANT Administration Insulin Glargine 20 units/ 0.2 mls @ 0 mls/hr 10/02/19 21:00 10/06/19 21:03 Miscellaneous Medication SC 0.2 mls HS ANT Administration Insulin Human Lispro 0 units 09/27/19 18:56 10/07/19 12:05 Humalog SC 2 unit .MODERATE SLIDING SC PRN Administration Moderate Correctional Scale Insulin Human Lispro 0 units 09/27/19 18:56 09/27/19 20:59 Humalog SC 3 units .BEDTIME SLIDING SC PRN Administration Bedtime Correctional Scale Metoprolol Tartrate 25 mg 09/29/19 21:00 10/07/19 08:25 Lopressor PO 25 mg BID ANT Administration Ondansetron HCl 4 mg 09/27/19 18:58 10/02/19 20:59 Zofran Odt PO 4 mg Q6H PRN Administration Nausea/Vomiting Pantoprazole Sodium 40 mg 09/28/19 09:00 10/07/19 08:26 Protonix PO 40 mg DAILY ANT Administration Phenazopyridine HCl 97.5 mg 10/07/19 13:00 10/07/19 12:02 Azo Standard PO 97.5 mg PC ANT Administration Prednisone 20 mg 10/07/19 08:00 10/07/19 08:27 Prednisone PO 10/12/19 08:01 20 mg QAM-WM ANT Administration Senna/Docusate Sodium 2 tab 09/27/19 18:58 09/30/19 17:18 Senokot S PO 2 tab BIDPRN PRN Administration Constipation Sodium Bicarbonate 650 mg 09/30/19 09:00 10/07/19 08:24 Bicarbonate, Sodium PO 650 mg TID ANT Administration Sodium Chloride 10 ml 09/27/19 18:58 10/06/19 11:35 Flush - Normal Saline IVF 10 ml Q12HR PRN Administration Saline Flush Vancomycin HCl 250 mg 10/06/19 12:00 10/07/19 05:35 First Vancomycin PO 250 mg Q6HR ANT Administration - Exam General Appearance: awake alert ENT: normocephalic atraumatic Neck: supple Heart: RRR Respiratory: normal chest expansion, no tachypnea Gastrointestinal: soft Neurological: cranial nerve grossly intact, no focal deficits Hosp A/P (1) Hepatic encephalopathy Code(s): K72.90 - HEPATIC FAILURE, UNSPECIFIED WITHOUT COMA Status: Acute (2) Alcoholic cirrhosis of liver Code(s): K70.30 - ALCOHOLIC CIRRHOSIS OF LIVER WITHOUT ASCITES Status: Acute (3) Acute respiratory failure with hypoxia and hypercapnia Code(s): J96.01 - ACUTE RESPIRATORY FAILURE WITH HYPOXIA; J96.02 - ACUTE RESPIRATORY FAILURE WITH HYPERCAPNIA Status: Acute (4) High anion gap metabolic acidosis Code(s): E87.2 - ACIDOSIS Status: Acute (5) OTIS (acute kidney injury) Code(s): N17.9 - ACUTE KIDNEY FAILURE, UNSPECIFIED Status: Acute (6) Diabetes mellitus Code(s): E11.9 - TYPE 2 DIABETES MELLITUS WITHOUT COMPLICATIONS Status: Chronic Qualifiers: Diabetes mellitus type: type 2 (7) Acute retention of urine Code(s): R33.8 - OTHER RETENTION OF URINE Status: Acute (8) UTI (urinary tract infection) Status: Acute (9) C. difficile colitis Code(s): A04.72 - ENTEROCOLITIS D/T CLOSTRIDIUM DIFFICILE, NOT SPCF RECUR Status: Acute - Plan The patient's mental status is improving. Hepatic encephalopathy resolved. Continue lactulose and titrate to achieve 3 bowel movements a day. Patient remains on IV fluids for her acute on chronic kidney injury. Her creatinine level is not changing significantly. Given her history of liver cirrhosis and hypoxia we will DC IVF. Stool is positive for C. difficile. Continueboral vancomycin day 2. Her UA is also positive. Continue Keflex. Continue to encourage oral intake. PT and OT evaluation. CM consult for placement.
[2019-10-07] MEDS: Insulin Glargine 20 UNITS in Pre-Filled Syringe 1 EACH SC SCH (21:30)
[2019-10-08] MEDS: Vancomycin HCl 25 MG/ML Oral PO SCH ×4 (00:27→17:34)
[2019-10-08] MEDS: Cephalexin 250 MG CAP PO SCH ×4 (00:27→17:34)
[2019-10-08 05:39] LABS: #Eosinphils 0.1 thou/uL (0.0-0.7); #Lymphocytes 0.7 thou/uL (1.20-3.40); #Monocytes 0.4 thou/uL (0.11-0.59); #Neutrophils 2.9 thou/uL (1.40-6.50); %Basophils 0.4 % (0.0-1.0); %Eosinophils 2.4 % (0.0-10.0); %Lymphocytes 17.3 % (21.0-51.0); %Neutrophils 69.9 % (42.0-75.0); Anion Gap 13 mmol/L (10-20); BUN (Urea Nitrogen) 62 mg/dL (9.8-20.1); Calc. Creatinine Clearance 31 mL/min (70-130); Calcium 8.1 mg/dL (7.8-10.44); Carbon Dioxide 19 mmol/L (23-31); Chloride 113 mmol/L (98-107); Estimated GFR-MDRD 15; Glucose 98 mg/dL (80-115); Hemoglobin 8.7 g/dL (12.0-16.0); Mean Corpuscular HGB CONC 33.1 g/dL (32.0-36.0); Mean Corpuscular Hemoglobin 31.1 pg (27.0-31.0); Mean Corpuscular Volume 93.9 fL (78.0-98.0); Mean Platelet Volume 11.9 fL (7.4-10.4); Platelet Count 33 thou/uL (130-400); Potassium 3.8 mmol/L (3.5-5.1); RBC Distribution Width 14.7 % (11.5-14.5); Sodium 141 mmol/L (136-145); White Blood Cell (WBC) Count 4.2 thou/uL (4.8-10.8)
[2019-10-08] MEDS: Phenazopyridine HCl 97.5 MG TABLET PO SCH ×3 (08:05→17:34)
[2019-10-08] MEDS: hydrALAZINE 25 MG TAB PO SCH ×3 (08:05→20:44)
[2019-10-08] MEDS: Ferrous Sulfate 325 MG TAB PO SCH ×2 (08:05→17:34)
[2019-10-08] MEDS: predniSONE 20 MG TAB PO SCH (08:05)
[2019-10-08] MEDS: Metoprolol Tartrate 25 MG TAB PO SCH ×2 (08:05→20:45)
[2019-10-08] MEDS: Sodium Bicarbonate Tab 325 MG TAB PO SCH ×3 (08:05→20:44)
[2019-10-08] MEDS: Amlodipine 10 MG TAB PO SCH (08:06)
[2019-10-08] MEDS: Calcitriol 0.25 MCG CAP PO SCH (08:06)
--- NOTE | 2019-10-08 10:22 | ULT ---
EXAM: Right upper extremity venous ultrasound HISTORY: Right upper extremity pain and edema COMPARISON: None TECHNIQUE: Multiplanar grayscale and color Doppler images were obtained in a right upper extremity ve nous ultrasound. Spectral analysis of the Doppler waveforms were performed. FINDINGS: The internal jugular vein demonstrates normal compression and flow without evidence of thrombus. The subclavian vein demonstrates normal flow and augmentation without evidence of thrombus. The axillary and brachial veins demonstrate normal compression, flow, and augmentation without eviden ce of thrombus. The venous structures distal to the elbow are patent without thrombus. The cephalic and basilic veins are patent. The patient's edema is throughout the arm but greatest at the elbow. IMPRESSION: No evidence of DVT.
--- NOTE | 2019-10-08 10:25 | PRG ---
DATE OF SERVICE: 10/08/2019 SUBJECTIVE: Ms. Campos is a 64-year-old white female followed by the Renal Service for acute kidney injury on top of her chronic renal failure. She initially had a hemodynamically-mediated renal dysfunction. She was given empiric volume repletion with improvement of the renal function. During this hospitalization, she developed hepatic encephalopathy. This was treated with lactulose and had clinically much improved. Her mentation is better this morning. She voices no new complaints. No chest pain or shortness of breath. OBJECTIVE: VITAL SIGNS: Blood pressure is 173/80, heart rate 72, respiratory rate 20, temperature 98.4, O2 saturation 96%. GENERAL: The patient is awake, alert, obese, comfortable, not in distress. SKIN: Adequate turgor. HEENT: She has pinkish conjunctivae. Anicteric sclerae. No neck mass. No carotid bruits. No JVD. CHEST: No deformities. LUNGS: Clear breath sounds. HEART: Normal sinus rhythm. No murmurs. No gallops. No rubs. ABDOMEN: Globular, soft, nontender. No masses. EXTREMITIES: Right BKA. Left leg, trace edema. Right upper extremity - positive for swelling. MEDICATIONS: Medications of October 08, 2019, were reviewed. LABORATORY DATA: Laboratories of October 08, 2019; sodium 141, potassium 3.8, chloride 113, carbon dioxide 19, BUN 62, creatinine 3.1, glucose 98, calcium 8.1, ammonia 56. Doppler of right upper extremity, pending. ASSESSMENT AND PLAN: 1. Acute kidney injury on top of her chronic renal failure, superimposed prerenal azotemia. Please note, creatinine is much improved. Most recent creatinine is now 3.13, which is near her baseline. Continue supportive care. No indication for any dialytic intervention. 2. Anemia. The patient is currently on weekly Epogen and iron supplementation. 3. Hepatic encephalopathy - much improved with lactulose. 4. Right upper extremity swelling - rule out DVT. Doppler venous study of the right upper extremity has been ordered. Awaiting rehab evaluation for possible transfer. Agree with current management. Job ID: [id number] [facility]
[2019-10-08] MEDS: Ondansetron ODT 4 MG TAB PO PRN (10:50)
--- NOTE | 2019-10-08 11:41 | PDOC.HOSPP ---
- Subjective Encounter Date: 10/08/19 Encounter Time: 11:00 Subjective: no abd pain or nausea is eating better responds well to verbal stimuli - Objective Vital Signs & Weight: Vital Signs (12 hours) Temp Pulse Resp BP Pulse Ox 10/08/19 08:06 70 10/08/19 08:05 70 10/08/19 08:00 98.4 F 72 20 173/80 H 96 10/08/19 07:13 70 16 10/08/19 00:00 92 L Weight Admit Weight 227 lb 4.8 oz Weight 234 lb 3.2 oz Most Recent Monitor Data Heart Rate from ECG 78 NIBP 154/84 NIBP BP-Mean 107 Respiration from ECG 21 SpO2 95 I&O: 10/07/19 10/08/19 10/09/19 06:59 06:59 06:59 Intake Total 550 1750 Output Total 1000 1600 Balance -450 150 Result Diagrams: 10/08/19 05:11 10/08/19 05:11 Additional Labs: Accuchecks 10/08/19 10/07/19 10/07/19 08:03 21:12 16:30 POC Glucose 110 166 H 202 H Hospitalist ROS - Medication Medications: Active Medications Generic Name Dose Route Start Last Admin Trade Name Freq PRN Reason Stop Dose Admin Acetaminophen 650 mg 09/27/19 18:58 10/06/19 14:04 Tylenol PO 650 mg Q4H PRN Administration Headache/Fever/Mild Pain (1-3) Albuterol/Ipratropium 3 ml 10/03/19 18:30 10/08/19 11:14 Duoneb NEB 3 ml [id number] ANT Administration Amlodipine Besylate 10 mg 09/28/19 09:00 10/08/19 08:06 Norvasc PO 10 mg DAILY ANT Administration Calcitriol 0.25 mcg 09/28/19 09:00 10/08/19 08:06 Rocaltrol PO 0.25 mcg DAILY ANT Administration Calcium Carbonate 1,000 mg 09/27/19 18:58 10/05/19 18:12 Tums PO 1,000 mg Q4H PRN Administration Heartburn or Indigestion Cephalexin 250 mg 10/07/19 12:00 10/08/19 05:01 Keflex PO 250 mg Q6HR ANT Administration Epoetin Randy-epbx 7,500 unit 09/27/19 17:00 10/04/19 18:11 Retacrit SC 7,500 unit Q7D ANT Administration Ferrous Sulfate 325 mg 09/28/19 08:00 10/08/19 08:05 Feosol PO 325 mg BID-WM ANT Administration Insulin Glargine 20 units/ 0.2 mls @ 0 mls/hr 10/02/19 21:00 10/07/19 21:30 Miscellaneous Medication SC 0.2 mls HS ANT Administration Insulin Human Lispro 0 units 09/27/19 18:56 10/07/19 17:40 Humalog SC 4 unit .MODERATE SLIDING SC PRN Administration Moderate Correctional Scale Insulin Human Lispro 0 units 09/27/19 18:56 09/27/19 20:59 Humalog SC 3 units .BEDTIME SLIDING SC PRN Administration Bedtime Correctional Scale Metoprolol Tartrate 25 mg 09/29/19 21:00 10/08/19 08:05 Lopressor PO 25 mg BID ANT Administration Ondansetron HCl 4 mg 09/27/19 18:58 10/08/19 10:50 Zofran Odt PO 4 mg Q6H PRN Administration Nausea/Vomiting Pantoprazole Sodium 40 mg 09/28/19 09:00 10/08/19 08:06 Protonix PO 40 mg DAILY ANT Administration Phenazopyridine HCl 97.5 mg 10/07/19 13:00 10/08/19 08:05 Azo Standard PO 97.5 mg PC ANT Administration Prednisone 20 mg 10/07/19 08:00 10/08/19 08:05 Prednisone PO 10/12/19 08:01 20 mg QAM-WM ANT Administration Senna/Docusate Sodium 2 tab 09/27/19 18:58 09/30/19 17:18 Senokot S PO 2 tab BIDPRN PRN Administration Constipation Sodium Bicarbonate 650 mg 09/30/19 09:00 10/08/19 08:05 Bicarbonate, Sodium PO 650 mg TID ANT Administration Sodium Chloride 10 ml 09/27/19 18:58 10/06/19 11:35 Flush - Normal Saline IVF 10 ml Q12HR PRN Administration Saline Flush Vancomycin HCl 250 mg 10/06/19 12:00 10/08/19 05:01 First Vancomycin PO 250 mg Q6HR ANT Administration - Exam General Appearance: awake alert Eye: PERRL, anicteric sclera ENT: no oropharyngeal lesions, dry oral mucosa Neck: supple, no JVD Heart: RRR, no murmur Respiratory: no wheezes, no rales Gastrointestinal: soft, non-distended, normal bowel sounds, no guarding, no rigidity Extremities: no cyanosis, 1+ LE edema Extremities - other findings: right bka Skin: normal turgor, no lesions Neurological: cranial nerve grossly intact, no focal deficits Psychiatric: normal affect, A&O x 3 Hosp A/P (1) OTIS (acute kidney injury) Code(s): N17.9 - ACUTE KIDNEY FAILURE, UNSPECIFIED Status: Acute (2) Acute respiratory failure with hypoxia and hypercapnia Code(s): J96.01 - ACUTE RESPIRATORY FAILURE WITH HYPOXIA; J96.02 - ACUTE RESPIRATORY FAILURE WITH HYPERCAPNIA Status: Resolved (3) Alcoholic cirrhosis of liver Code(s): K70.30 - ALCOHOLIC CIRRHOSIS OF LIVER WITHOUT ASCITES Status: Chronic Qualifiers: Ascites presence: without ascites Qualified Code(s): K70.30 - Alcoholic cirrhosis of liver without ascites (4) C. difficile colitis Code(s): A04.72 - ENTEROCOLITIS D/T CLOSTRIDIUM DIFFICILE, NOT SPCF RECUR Status: Acute (5) Hepatic encephalopathy Code(s): K72.90 - HEPATIC FAILURE, UNSPECIFIED WITHOUT COMA Status: Resolved (6) UTI (urinary tract infection) Status: Acute Qualifiers: Urinary tract infection type: acute cystitis Hematuria presence: without hematuria Qualified Code(s): N30.00 - Acute cystitis without hematuria (7) Pancytopenia Code(s): D61.818 - OTHER PANCYTOPENIA Status: Chronic (8) Diabetes mellitus Code(s): E11.9 - TYPE 2 DIABETES MELLITUS WITHOUT COMPLICATIONS Status: Chronic Qualifiers: Diabetes mellitus type: type 2 Diabetes mellitus shelter insulin use: with shelter use Diabetes mellitus complication status: with kidney complications Diabetes mellitus complication detail: with chronic kidney disease Chronic kidney disease stage: stage 3 (moderate) Qualified Code(s): E11.22 - Type 2 diabetes mellitus with diabetic chronic kidney disease; N18.3 - Chronic kidney disease, stage 3 (moderate); Z79.4 - intermediate (current) use of insulin (9) Physical deconditioning Code(s): R53.81 - OTHER MALAISE Status: Acute - Plan hemostable continue current meds including oral vanc, increase hydralazine, dc keflex in view of c.dif remove durán if patient can mobilize to commode or can use pure saurav is on lantus, ?prednisone, oral iron and lopressor awaiting placement her right bka prosthesis is getting done per patient renal function is holding up start lactulose if she gets confused to prevent h.encephalopathy, will hold for now due to c.dif
[2019-10-08] MEDS: HumaLOG 300 UNITS/3 ML VIAL SC PRN ×2 (12:21→17:35)
[2019-10-08] MEDS: Acetaminophen 325 MG TAB PO PRN (14:12)
[2019-10-08] MEDS: Insulin Glargine 20 UNITS in Pre-Filled Syringe 1 EACH SC SCH (20:44)
[2019-10-09] MEDS: Vancomycin HCl 25 MG/ML Oral PO SCH ×4 (00:20→18:14)
[2019-10-09] MEDS: Cephalexin 250 MG CAP PO SCH ×2 (00:20→05:55)
[2019-10-09] MEDS: Acetaminophen 325 MG TAB PO PRN ×2 (02:16→20:57)
[2019-10-09 04:07] LABS: Anion Gap 17 mmol/L (10-20); BUN (Urea Nitrogen) 59 mg/dL (9.8-20.1); Calc. Creatinine Clearance 32 mL/min (70-130); Calcium 8.4 mg/dL (7.8-10.44); Carbon Dioxide 16 mmol/L (23-31); Chloride 114 mmol/L (98-107); Estimated GFR-MDRD 16; Glucose 102 mg/dL (80-115); Potassium 3.8 mmol/L (3.5-5.1); Sodium 143 mmol/L (136-145)
[2019-10-09] MEDS: Metoprolol Tartrate 25 MG TAB PO SCH ×2 (07:59→19:55)
[2019-10-09] MEDS: Sodium Bicarbonate Tab 325 MG TAB PO SCH ×3 (07:59→19:55)
[2019-10-09] MEDS: hydrALAZINE 25 MG TAB PO SCH ×3 (07:59→19:55)
[2019-10-09] MEDS: predniSONE 20 MG TAB PO SCH (08:00)
[2019-10-09] MEDS: Phenazopyridine HCl 97.5 MG TABLET PO SCH ×3 (08:00→18:14)
[2019-10-09] MEDS: Calcitriol 0.25 MCG CAP PO SCH (08:00)
[2019-10-09] MEDS: Ferrous Sulfate 325 MG TAB PO SCH ×2 (08:00→18:14)
[2019-10-09] MEDS: Amlodipine 10 MG TAB PO SCH (08:00)
--- NOTE | 2019-10-09 10:15 | PRG ---
DATE OF SERVICE: 10/09/2019 SUBJECTIVE: Ms. Campos is a 64-year-old white female, followed up for acute kidney injury on top of her chronic renal failure. She has a superimposed prerenal azotemia, which is already improving. Her baseline creatinine is about 3.0 mg%. She has underlying diabetic nephropathy. During this hospitalization, her clinical course was marred by hepatic encephalopathy, which is now much improved. She also has developed C difficile colitis and currently being treated. Renal function is slowly improving over time. Also, the patient complained of right upper extremity swelling and a Doppler ultrasound was done, which showed no evidence of DVT. She voices no new complaints today. She denies any chest pain or shortness of breath. OBJECTIVE: VITAL SIGNS: Blood pressure is noted at 164/76, heart rate is 71, temperature 98.1, O2 saturations 93%. GENERAL: The patient is noted to be awake, alert, comfortable, not in distress. SKIN: Adequate turgor. HEENT: She has had pinkish conjunctivae. Anicteric sclerae. NECK: No neck mass. No carotid bruits. No JVD. CHEST: No deformities. LUNGS: Clear breath sounds. HEART: Normal sinus rhythm. No murmur. No gallops. No rubs. ABDOMEN: Globular, soft, nontender. No masses. EXTREMITIES: No edema. No deformities except for a finding of right upper extremity edema. Lower extremity; no edema. Please note she is status post right BKA. MEDICATIONS: Medications of October 09, 2019, reviewed. LABORATORY DATA: Laboratories of October 09, 2019; sodium 143, potassium 4.8, chloride 114, carbon dioxide 16, BUN 59, creatinine 3.05, calcium 8.4. Ammonia level of October 09, 2019 is 56. ASSESSMENT AND PLAN: 1. Hepatic encephalopathy, resolved. The patient has a history of underlying cirrhosis and alcohol intake. She has been counseled regarding alcohol intake. 2. Acute kidney injury-superimposed hemodynamically-mediated renal dysfunction, much improved renal function. 3. Chronic renal failure-she has an underlying diabetic nephropathy. Continue supportive care. 4. Right upper extremity swelling-no evidence of deep venous thrombosis. Supportive care. We will hold off diuretics for the moment. 5. Clostridium difficile colitis, currently being treated. Slowly improving. 6. Recheck CBC and basic metabolic profile in a.m. Job ID: [id number]
--- NOTE | 2019-10-09 10:25 | PDOC.HOSPP ---
- Subjective Encounter Date: 10/09/19 Encounter Time: 10:00 Subjective: no abd pain or nausea feels better had one bm today which was normal - Objective Vital Signs & Weight: Vital Signs (12 hours) Temp Pulse Resp BP Pulse Ox 10/09/19 08:02 98.1 F 71 18 164/76 H 93 L 10/09/19 08:00 70 10/09/19 07:59 70 Weight Admit Weight 227 lb 4.8 oz Weight 234 lb 3.2 oz Most Recent Monitor Data Heart Rate from ECG 78 NIBP 154/84 NIBP BP-Mean 107 Respiration from ECG 21 SpO2 95 I&O: 10/08/19 10/09/19 10/10/19 06:59 06:59 06:59 Intake Total 1750 800 Output Total 1600 650 Balance 150 150 Result Diagrams: 10/08/19 05:11 10/09/19 03:33 Additional Labs: Accuchecks 10/09/19 10/08/19 10/08/19 08:10 20:48 16:49 POC Glucose 98 155 H 155 H 10/08/19 12:19 POC Glucose 173 H Hospitalist ROS - Medication Medications: Active Medications Generic Name Dose Route Start Last Admin Trade Name Freq PRN Reason Stop Dose Admin Acetaminophen 650 mg 09/27/19 18:58 10/09/19 02:16 Tylenol PO 650 mg Q4H PRN Administration Headache/Fever/Mild Pain (1-3) Albuterol/Ipratropium 3 ml 10/03/19 18:30 10/09/19 07:14 Duoneb NEB Not Given D3SY-KE ANT Amlodipine Besylate 10 mg 09/28/19 09:00 10/09/19 08:00 Norvasc PO 10 mg DAILY ANT Administration Calcitriol 0.25 mcg 09/28/19 09:00 10/09/19 08:00 Rocaltrol PO 0.25 mcg DAILY ANT Administration Calcium Carbonate 1,000 mg 09/27/19 18:58 10/05/19 18:12 Tums PO 1,000 mg Q4H PRN Administration Heartburn or Indigestion Epoetin Randy-epbx 7,500 unit 09/27/19 17:00 10/04/19 18:11 Retacrit SC 7,500 unit Q7D ANT Administration Ferrous Sulfate 325 mg 09/28/19 08:00 10/09/19 08:00 Feosol PO 325 mg BID-WM ANT Administration Hydralazine HCl 50 mg 10/08/19 15:00 10/09/19 07:59 Apresoline PO 50 mg TID ANT Administration Insulin Glargine 20 units/ 0.2 mls @ 0 mls/hr 10/02/19 21:00 10/08/19 20:44 Miscellaneous Medication SC 0.2 mls HS ANT Administration Insulin Human Lispro 0 units 09/27/19 18:56 10/08/19 17:35 Humalog SC 2 unit .MODERATE SLIDING SC PRN Administration Moderate Correctional Scale Insulin Human Lispro 0 units 09/27/19 18:56 09/27/19 20:59 Humalog SC 3 units .BEDTIME SLIDING SC PRN Administration Bedtime Correctional Scale Metoprolol Tartrate 25 mg 09/29/19 21:00 10/09/19 07:59 Lopressor PO 25 mg BID ANT Administration Ondansetron HCl 4 mg 09/27/19 18:58 10/08/19 10:50 Zofran Odt PO 4 mg Q6H PRN Administration Nausea/Vomiting Pantoprazole Sodium 40 mg 09/28/19 09:00 10/09/19 08:00 Protonix PO 40 mg DAILY ANT Administration Phenazopyridine HCl 97.5 mg 10/07/19 13:00 10/09/19 08:00 Azo Standard PO 97.5 mg PC ANT Administration Prednisone 20 mg 10/07/19 08:00 10/09/19 08:00 Prednisone PO 10/12/19 08:01 20 mg QAM-WM ANT Administration Senna/Docusate Sodium 2 tab 09/27/19 18:58 09/30/19 17:18 Senokot S PO 2 tab BIDPRN PRN Administration Constipation Sodium Bicarbonate 650 mg 09/30/19 09:00 10/09/19 07:59 Bicarbonate, Sodium PO 650 mg TID ANT Administration Sodium Chloride 10 ml 09/27/19 18:58 10/06/19 11:35 Flush - Normal Saline IVF 10 ml Q12HR PRN Administration Saline Flush Vancomycin HCl 250 mg 10/06/19 12:00 10/09/19 05:55 First Vancomycin PO 250 mg Q6HR ANT Administration - Exam General Appearance: awake alert Eye: PERRL, anicteric sclera ENT: no oropharyngeal lesions, moist mucosa Neck: supple, no JVD Heart: RRR, no murmur Respiratory: no wheezes, no rales Gastrointestinal: soft, non-tender, non-distended, normal bowel sounds Extremities: no edema Extremities - other findings: right bka Skin - other findings: b/l echymosis of both UE due to venous blood draws Neurological: cranial nerve grossly intact, no focal deficits Psychiatric: normal affect, A&O x 3 Hosp A/P (1) OTIS (acute kidney injury) Code(s): N17.9 - ACUTE KIDNEY FAILURE, UNSPECIFIED Status: Acute (2) Acute respiratory failure with hypoxia and hypercapnia Code(s): J96.01 - ACUTE RESPIRATORY FAILURE WITH HYPOXIA; J96.02 - ACUTE RESPIRATORY FAILURE WITH HYPERCAPNIA Status: Resolved (3) Alcoholic cirrhosis of liver Code(s): K70.30 - ALCOHOLIC CIRRHOSIS OF LIVER WITHOUT ASCITES Status: Chronic Qualifiers: Ascites presence: without ascites Qualified Code(s): K70.30 - Alcoholic cirrhosis of liver without ascites (4) C. difficile colitis Code(s): A04.72 - ENTEROCOLITIS D/T CLOSTRIDIUM DIFFICILE, NOT SPCF RECUR Status: Acute (5) Hepatic encephalopathy Code(s): K72.90 - HEPATIC FAILURE, UNSPECIFIED WITHOUT COMA Status: Resolved (6) UTI (urinary tract infection) Status: Resolved Qualifiers: Urinary tract infection type: acute cystitis Hematuria presence: without hematuria Qualified Code(s): N30.00 - Acute cystitis without hematuria (7) Pancytopenia Code(s): D61.818 - OTHER PANCYTOPENIA Status: Chronic (8) Diabetes mellitus Code(s): E11.9 - TYPE 2 DIABETES MELLITUS WITHOUT COMPLICATIONS Status: Chronic Qualifiers: Diabetes mellitus type: type 2 Diabetes mellitus local intermodal truck driver insulin use: with local intermodal truck driver use Diabetes mellitus complication status: with kidney complications Diabetes mellitus complication detail: with chronic kidney disease Chronic kidney disease stage: stage 3 (moderate) Qualified Code(s): E11.22 - Type 2 diabetes mellitus with diabetic chronic kidney disease; N18.3 - Chronic kidney disease, stage 3 (moderate); Z79.4 - long term (current) use of insulin (9) Physical deconditioning Code(s): R53.81 - OTHER MALAISE Status: Acute - Plan hemostable continue current meds including oral vanc, increase hydralazine, dc keflex in view of c.dif remove durán if patient can mobilize to commode or can use pure saurav is on lantus, ?prednisone, oral iron and lopressor awaiting placement/pt wants to go home to her [place] apt and says she has caregivers and PT, CM to confirm the same in am for dc plan her right bka prosthesis is getting done per patient, still has her old one in her apartment renal function is holding up start lactulose once daily, hold if more than 3 bm's/day or gets very watery.
[2019-10-09] MEDS: Insulin Glargine 20 UNITS in Pre-Filled Syringe 1 EACH SC SCH (19:56)
[2019-10-09 20:45] VITALS: TEMP 98.5
[2019-10-10] MEDS: Vancomycin HCl 25 MG/ML Oral PO SCH ×3 (00:40→12:06)
[2019-10-10] MEDS: Ondansetron ODT 4 MG TAB PO PRN ×2 (00:40→08:00)
[2019-10-10 04:07] LABS: Anion Gap 17 mmol/L (10-20); BUN (Urea Nitrogen) 54 mg/dL (9.8-20.1); Calc. Creatinine Clearance 35 mL/min (70-130); Calcium 9.1 mg/dL (7.8-10.44); Carbon Dioxide 18 mmol/L (23-31); Chloride 115 mmol/L (98-107); Estimated GFR-MDRD 17; Glucose 100 mg/dL (80-115); Potassium 3.6 mmol/L (3.5-5.1); Sodium 146 mmol/L (136-145)
[2019-10-10 04:22] LABS: #Eosinphils 0.1 thou/uL (0.0-0.7); #Lymphocytes 0.5 thou/uL (1.20-3.40); #Monocytes 0.4 thou/uL (0.11-0.59); #Neutrophils 3.2 thou/uL (1.40-6.50); %Basophils 0.3 % (0.0-1.0); %Eosinophils 3.2 % (0.0-10.0); %Lymphocytes 11.9 % (21.0-51.0); %Monocytes 9.3 % (0.0-10.0); %Neutrophils 75.4 % (42.0-75.0); Hemoglobin 8.9 g/dL (12.0-16.0); Mean Corpuscular HGB CONC 33.9 g/dL (32.0-36.0); Mean Corpuscular Hemoglobin 31.7 pg (27.0-31.0); Mean Corpuscular Volume 93.5 fL (78.0-98.0); Mean Platelet Volume 11.3 fL (7.4-10.4); Platelet Count 34 thou/uL (130-400); RBC Distribution Width 14.6 % (11.5-14.5); Red Blood Cell (RBC) Count 2.82 mill/uL (4.20-5.40); White Blood Cell (WBC) Count 4.2 thou/uL (4.8-10.8)
--- NOTE | 2019-10-10 07:37 | PRG ---
DATE OF SERVICE: 10/10/2019 SERVICE: Renal Medicine. SUBJECTIVE: Ms. Campos is a 64-year-old white female, followed up by the Renal Service for her acute kidney injury on top of her chronic renal failure. She had a hemodynamically-mediated renal dysfunction. She was given volume repletion with improvement of creatinine to near baseline. During this hospitalization, she developed hepatic encephalopathy. These, later on, resolved with treatment with lactulose. The patient declined to go to a rehab. No new complaints today. No chest pain or shortness of breath. OBJECTIVE: VITAL SIGNS: Blood pressure 149/70, heart rate 76, respiratory rate 16, temperature 98.5, O2 saturation 94%. GENERAL: Awake, alert, comfortable, not in distress. SKIN: Adequate turgor. HEENT: Pinkish conjunctivae. Anicteric sclerae. NECK: No neck mass. No carotid bruits. No JVD. CHEST: No deformities. LUNGS: Clear breath sounds. HEART: Normal sinus rhythm. No murmur. No gallops. No rubs. ABDOMEN: Globular, soft, nontender. No masses. EXTREMITIES: Status post right BKA. Left leg, no edema. MEDICATIONS: On October 10, 2019, were reviewed. LABORATORY DATA: On October 10, 2019; white count 4.2, hemoglobin 8.9. Sodium 146, potassium 3.6, chloride 115, carbon dioxide 18, BUN 54, creatinine 2.83, glucose 100, calcium 9.1. ASSESSMENT AND PLAN: 1. Acute kidney injury on top of her chronic renal failure - superimposed prerenal azotemia on top of her diabetic nephropathy, much improved creatinine. Creatinine 2.83 is at baseline. Continue supportive care. No indication for any dialytic intervention. 2. Anemia. Continuing weekly Epogen. Refer patient to Hematology on discharge. 3. Hepatic encephalopathy, resolved. 4. Mild hypernatremia. Increase free water intake. 5. We will follow up this patient in the outpatient clinic. Job ID: [id number]
--- NOTE | 2019-10-10 07:40 | PDOC.HOSPP ---
- Subjective Encounter Date: 10/10/19 Encounter Time: 10:00 Subjective: Patient feeling well. Eager to go home. States she has plenty of help at home and refusing rehab placement. - Objective Vital Signs & Weight: Vital Signs (12 hours) Temp Pulse Resp BP Pulse Ox 10/09/19 20:00 98.5 F 76 16 149/70 H 94 L 10/09/19 19:55 71 Weight Admit Weight 227 lb 4.8 oz Weight 234 lb 3.2 oz Most Recent Monitor Data Heart Rate from ECG 78 NIBP 154/84 NIBP BP-Mean 107 Respiration from ECG 21 SpO2 95 I&O: 10/09/19 10/10/19 10/11/19 06:59 06:59 06:59 Intake Total 800 800 Output Total 650 1200 Balance 150 -400 Result Diagrams: 10/10/19 03:35 10/10/19 03:35 Additional Labs: Accuchecks 10/09/19 10/09/19 10/09/19 20:03 18:21 12:25 POC Glucose 200 H 144 H 135 H 10/09/19 08:10 POC Glucose 98 Hospitalist ROS - Review of Systems Constitutional: denies: fever, chills Respiratory: denies: cough, shortness of breath Cardiovascular: denies: chest pain, palpitations Gastrointestinal: denies: nausea, vomiting, diarrhea Neurological: denies: confusion - Medication Medications: Active Medications Generic Name Dose Route Start Last Admin Trade Name Freq PRN Reason Stop Dose Admin Acetaminophen 650 mg 09/27/19 18:58 10/09/19 20:57 Tylenol PO 650 mg Q4H PRN Administration Headache/Fever/Mild Pain (1-3) Albuterol/Ipratropium 3 ml 10/03/19 18:30 10/10/19 02:05 Duoneb NEB Not Given [id number] ANT Amlodipine Besylate 10 mg 09/28/19 09:00 10/09/19 08:00 Norvasc PO 10 mg DAILY ANT Administration Calcitriol 0.25 mcg 09/28/19 09:00 10/09/19 08:00 Rocaltrol PO 0.25 mcg DAILY ANT Administration Calcium Carbonate 1,000 mg 09/27/19 18:58 10/05/19 18:12 Tums PO 1,000 mg Q4H PRN Administration Heartburn or Indigestion Epoetin Randy-epbx 7,500 unit 09/27/19 17:00 10/04/19 18:11 Retacrit SC 7,500 unit Q7D ANT Administration Ferrous Sulfate 325 mg 09/28/19 08:00 10/09/19 18:14 Feosol PO 325 mg BID-WM ANT Administration Hydralazine HCl 50 mg 10/08/19 15:00 10/09/19 19:55 Apresoline PO 50 mg TID ANT Administration Insulin Glargine 20 units/ 0.2 mls @ 0 mls/hr 10/02/19 21:00 10/09/19 19:56 Miscellaneous Medication SC 0.2 mls HS ANT Administration Insulin Human Lispro 0 units 09/27/19 18:56 10/08/19 17:35 Humalog SC 2 unit .MODERATE SLIDING SC PRN Administration Moderate Correctional Scale Insulin Human Lispro 0 units 09/27/19 18:56 09/27/19 20:59 Humalog SC 3 units .BEDTIME SLIDING SC PRN Administration Bedtime Correctional Scale Metoprolol Tartrate 25 mg 09/29/19 21:00 10/09/19 19:55 Lopressor PO 25 mg BID ANT Administration Ondansetron HCl 4 mg 09/27/19 18:58 10/10/19 00:40 Zofran Odt PO 4 mg Q6H PRN Administration Nausea/Vomiting Pantoprazole Sodium 40 mg 09/28/19 09:00 10/09/19 08:00 Protonix PO 40 mg DAILY ANT Administration Phenazopyridine HCl 97.5 mg 10/07/19 13:00 10/09/19 18:14 Azo Standard PO 97.5 mg PC ANT Administration Prednisone 20 mg 10/07/19 08:00 10/09/19 08:00 Prednisone PO 10/12/19 08:01 20 mg QAM-WM ANT Administration Senna/Docusate Sodium 2 tab 09/27/19 18:58 09/30/19 17:18 Senokot S PO 2 tab BIDPRN PRN Administration Constipation Sodium Bicarbonate 650 mg 09/30/19 09:00 10/09/19 19:55 Bicarbonate, Sodium PO 650 mg TID ANT Administration Sodium Chloride 10 ml 09/27/19 18:58 10/06/19 11:35 Flush - Normal Saline IVF 10 ml Q12HR PRN Administration Saline Flush Vancomycin HCl 250 mg 10/06/19 12:00 10/10/19 05:57 First Vancomycin PO 250 mg Q6HR ANT Administration - Exam General Appearance: NAD, awake alert ENT: moist mucosa Heart: RRR, no murmur, no gallops, no rubs Respiratory: CTAB, no wheezes, no rales, no ronchi Gastrointestinal: soft, non-tender, normal bowel sounds Psychiatric: normal affect, normal behavior, A&O x 3 Hosp A/P (1) OTIS (acute kidney injury) Code(s): N17.9 - ACUTE KIDNEY FAILURE, UNSPECIFIED Status: Acute (2) Acute respiratory failure with hypoxia and hypercapnia Code(s): J96.01 - ACUTE RESPIRATORY FAILURE WITH HYPOXIA; J96.02 - ACUTE RESPIRATORY FAILURE WITH HYPERCAPNIA Status: Resolved (3) C. difficile colitis Code(s): A04.72 - ENTEROCOLITIS D/T CLOSTRIDIUM DIFFICILE, NOT SPCF RECUR Status: Acute (4) Hepatic encephalopathy Code(s): K72.90 - HEPATIC FAILURE, UNSPECIFIED WITHOUT COMA Status: Resolved (5) Alcoholic cirrhosis of liver Code(s): K70.30 - ALCOHOLIC CIRRHOSIS OF LIVER WITHOUT ASCITES Status: Chronic Qualifiers: Ascites presence: without ascites Qualified Code(s): K70.30 - Alcoholic cirrhosis of liver without ascites (6) UTI (urinary tract infection) Status: Resolved Qualifiers: Urinary tract infection type: acute cystitis Hematuria presence: without hematuria Qualified Code(s): N30.00 - Acute cystitis without hematuria (7) Physical deconditioning Code(s): R53.81 - OTHER MALAISE Status: Acute (8) Pancytopenia Code(s): D61.818 - OTHER PANCYTOPENIA Status: Chronic (9) Diabetes mellitus Code(s): E11.9 - TYPE 2 DIABETES MELLITUS WITHOUT COMPLICATIONS Status: Chronic Qualifiers: Diabetes mellitus type: type 2 Diabetes mellitus intermediate insulin use: with intermediate use Diabetes mellitus complication status: with kidney complications Diabetes mellitus complication detail: with chronic kidney disease Chronic kidney disease stage: stage 3 (moderate) Qualified Code(s): E11.22 - Type 2 diabetes mellitus with diabetic chronic kidney disease; N18.3 - Chronic kidney disease, stage 3 (moderate); Z79.4 - custodial (current) use of insulin - Plan hemostable continue current meds including oral vanc, increase hydralazine, dc keflex in view of c.dif remove durán if patient can mobilize to commode or can use pure saurav is on lantus, prednisone (until 10/11), oral iron and lopressor awaiting placement/pt wants to go home to her [place] apt and says she has caregivers and PT, CM to confirm the same in am for dc plan her right bka prosthesis is getting done per patient, still has her old one in her apartment renal function is holding up start lactulose once daily, hold if more than 3 bm's/day or gets very watery.
[2019-10-10] MEDS: Ferrous Sulfate 325 MG TAB PO SCH (07:59)
[2019-10-10] MEDS: Phenazopyridine HCl 97.5 MG TABLET PO SCH ×3 (07:59→12:09)
[2019-10-10] MEDS: Calcitriol 0.25 MCG CAP PO SCH (07:59)
[2019-10-10] MEDS: Sodium Bicarbonate Tab 325 MG TAB PO SCH (07:59)
[2019-10-10] MEDS: Amlodipine 10 MG TAB PO SCH (07:59)
[2019-10-10] MEDS: Metoprolol Tartrate 25 MG TAB PO SCH (07:59)
[2019-10-10] MEDS: hydrALAZINE 25 MG TAB PO SCH (07:59)
[2019-10-10] MEDS: predniSONE 20 MG TAB PO SCH (08:00)
[2019-10-10 08:11] VITALS: BP 186/74
--- NOTE | 2019-10-11 09:15 | DIS ---
DATE OF ADMISSION: 09/27/2019 DATE OF DISCHARGE: 10/10/2019 PRIMARY CARE PHYSICIAN: Sarath Aguillon MD REASON FOR ADMISSION: Acute hypoxic respiratory failure and acute kidney failure. DISCHARGE DIAGNOSES: 1. Acute respiratory failure with hypoxia and hypercapnia, resolved. 2. Acute kidney injury, improved. 3. Clostridium difficile colitis. 4. Hepatic encephalopathy. 5. Alcoholic cirrhosis of the liver. 6. Urinary tract infection, resolved. 7. Physical deconditioning. 8. Pancytopenia. 9. Diabetes mellitus type 2, on insulin therapy. 10. Anemia of chronic disease. PROCEDURES: 1. Ultrasound of the kidneys showing no hydronephrosis, normal size and normal echotexture of the cortices. 2. Nuclear medicine pulmonary perfusion scan showing low probability for pulmonary thromboembolism. 3. CT of the brain showing no mass or bleed or other acute process. 4. Venous ultrasound of the right upper extremity showing no evidence for DVT. 5. Echocardiogram showing ejection fraction of 60% to 65% with grade 2/3 diastolic dysfunction. CONSULTATIONS: 1. Nephrology, Dr. Fang. 2. Pulmonology, Dr. Limon. PERTINENT LABORATORY DATA: Creatinine 3.86 on admission, went up to 4.4, and now down to 2.83. SUMMARY OF HOSPITAL COURSE: This is a 64-year-old female with past medical history of chronic kidney disease stage 4, cirrhosis of the liver, diabetes type 2, COPD, chronic back pain, and depression, who presented to the ER with generalized weakness and nonproductive cough. She was found to be in hypertensive emergency, hypoxic on room air, also had an elevated D-dimer. She was admitted to the hospital, found to have UTI also, she was treated with antibiotics for that, and possible pulmonary infection. She had some progression of her respiratory difficulty and so she was put on BiPAP and moved to the unit. Dr. Limon was consulted. The patient and family stressed that she was a do not attempt resuscitation. She did improve over time. Her diuretics had to be held due to her kidney function. Eventually, her kidneys started to stabilize and improve during her hospitalization. Dr. Fang was following her throughout her hospitalization. She did develop some diarrhea during her hospitalization and this came back positive for C difficile. Her urinary tract infection was treated completely and antibiotics were discontinued and she was put on oral vancomycin with resolution of her diarrhea. She did have confusion initially during her hospitalization and was thought to be due to hepatic encephalopathy. She was treated with some lactulose as needed and this improved during her hospitalization as well. At the time of discharge, the patient was doing well. She was starting to move around with Physical Therapy. They did recommend rehabilitation. However, the patient stated that she has a right BKA and she has her prosthesis at her apartment. She states she has physical therapy there and someone comes in daily to help her as well as having a wheelchair there to get around in and she would like to go straight home. We did confirm that she had all of these modalities in place and she is being discharged home. DISCHARGE MANAGEMENT: Discharged home to continue her home health with physical therapy and occupational therapy. ACTIVITY: As tolerated. DIET: Diabetic, low-sodium diet. THERAPY: Occupational and physical through her home health agency. FOLLOWUP: Follow up with Dr. Aguillon in 7 days, with Dr. Fang in 7 days, with Dr. Albright about her anemia in 2 to 3 weeks. DISCHARGE MEDICATIONS: 1. Calcitriol 0.25 mcg p.o. daily, 30 capsules dispensed. 2. Levemir decreased to 20 units at night. 3. Amlodipine 10 mg daily. 4. Ferrous sulfate 325 mg twice a day. 5. Hydralazine 10 mg 3 times a day. 6. Lactulose 20 g p.o. daily, 30 capsules dispensed. 7. Metoprolol tartrate 25 mg twice a day, 60 tablets dispensed. 8. Protonix 40 mg daily. 9. Prednisone 20 mg daily for another 2 days. 10. Sodium bicarbonate 650 mg 3 times a day, 90 tablets dispensed. 11. Vancomycin 250 mg q.6 hours for another 7 days, 28 tablets dispensed. 12. Resume acetaminophen with codeine as needed. 13. Alendronate 70 mg q.7 days. 14. Insulin bedtime sliding scale as needed. 15. Mirtazapine 15 mg at night. 16. Sertraline 150 mg daily. 17. The patient is to stop any fluoxetine and buspirone. TIME SPENT: Arranging the details of this discharge took 32 minutes. Job ID: [id number]
--- NOTE | 2019-10-11 16:19 | EKG ---
Test Reason : WEAKNESS Blood Pressure : / mmHG Vent. Rate : 088 BPM Atrial Rate : 088 BPM P-R Int : 160 ms QRS Dur : 082 ms QT Int : 382 ms P-R-T Axes : 082 011 027 degrees QTc Int : 462 ms Normal sinus rhythm Normal ECG Confirmed by BRET ABBASI, MITCHELL ([id number]), editor map WHITNEY LOPEZ ([id number]) on 10/11/2019 4:17:59 PM Referred By: Confirmed By:MITCHELL QUEEN MD
== END 2019-10-10 15:00 | disposition home health service (06) | DRG 682 ==
LOC: ERS 11:16 → 2NO 14:38 → CCU 10-03 11:07 → ONC 10-05 10:44
PROVIDERS: ADMIT Internal Medicine; ATTEND Internal Medicine
PROC: 30233N1 Transfusion of Nonautologous Red Blood Cells into Peripheral Vein, Percutaneous Approach (ICD-10-PCS; principal; 2019-09-28)
PROC: 0T9B70Z Drainage of Bladder with Drainage Device, Via Natural or Artificial Opening (ICD-10-PCS; 2019-10-03)
PROC: 5A09457 Assistance with Respiratory Ventilation, 24-96 Consecutive Hours, Continuous Positive Airway Pressure (ICD-10-PCS; 2019-10-03)
DX: N17.9 Acute kidney failure, unspecified (principal); J96.01 Acute respiratory failure with hypoxia; J96.02 Acute respiratory failure with hypercapnia; K72.00 Acute and subacute hepatic failure without coma; G93.41 Metabolic encephalopathy; D61.818 Other pancytopenia; I13.0 Hypertensive heart and chronic kidney disease with heart failure and stage 1 through stage 4 chronic kidney disease, or unspecified chronic kidney disease; E87.2 Acidosis; K92.0 Hematemesis; Z68.41 Body mass index [BMI] 40.0-44.9, adult; N30.00 Acute cystitis without hematuria; E87.0 Hyperosmolality and hypernatremia; A04.72 Enterocolitis due to Clostridium difficile, not specified as recurrent; Z66 Do not resuscitate; Z20.828 Contact with and (suspected) exposure to other viral communicable diseases; N25.81 Secondary hyperparathyroidism of renal origin; E11.22 Type 2 diabetes mellitus with diabetic chronic kidney disease; J44.9 Chronic obstructive pulmonary disease, unspecified; F17.210 Nicotine dependence, cigarettes, uncomplicated; F41.9 Anxiety disorder, unspecified; F32.9 Major depressive disorder, single episode, unspecified; M19.90 Unspecified osteoarthritis, unspecified site; D63.1 Anemia in chronic kidney disease; E87.70 Fluid overload, unspecified; N18.4 Chronic kidney disease, stage 4 (severe); K70.30 Alcoholic cirrhosis of liver without ascites; E66.01 Morbid (severe) obesity due to excess calories; E87.6 Hypokalemia; G47.00 Insomnia, unspecified; E11.649 Type 2 diabetes mellitus with hypoglycemia without coma; Z79.51 Long term (current) use of inhaled steroids; Z89.511 Acquired absence of right leg below knee; Z88.1 Allergy status to other antibiotic agents; Z90.710 Acquired absence of both cervix and uterus; Z79.4 Long term (current) use of insulin; Z79.899 Other long term (current) drug therapy; Z88.8 Allergy status to other drugs, medicaments and biological substances; R33.8 Other retention of urine
CPT/HCPCS: 36415; 36416; 36430; 51701; 70450; 71045; 76770; 78451; 80048; 80053; 80061; 81001; 82140; 82550; 82553; 82607; 82746; 82805; 83540; 83550; 83605; 83690; 83735; 83880; 83970; 84100; 84443; 84484; 85025; 85046; 85379; 85610; 85730; 86850; 86900; 86901; 87324; 87449; 87493; 90471; 90670; 93005; 93306; 94640; 94660; 96365; 96366; 96372; 96375; A9540; G0009; J0696; J1100; J1650; J1815; J1885; J1940; J2060; J2765; J2920; J3490; J7070; J7512; J7620; P9016; P9047; Q0162; Q5105; U0002

== ENCOUNTER 2020-04-16 16:27 | Emergency (ER) | payer MEDICARE ==
[2020-04-16 23:51] LABS: SARS-CoV-2 PCR by NAA Not Detected (NotDetected)
== END 2020-04-16 17:54 | disposition home or self-care (01) ==
LOC: ERS 16:27
DX: Z20.822 Contact with and (suspected) exposure to COVID-19 (principal); E11.9 Type 2 diabetes mellitus without complications; I10 Essential (primary) hypertension; J44.9 Chronic obstructive pulmonary disease, unspecified; F17.210 Nicotine dependence, cigarettes, uncomplicated
CPT/HCPCS: 99283; U0003; U0005; 87635

== ENCOUNTER 2020-05-27 11:08 | Emergency (ER) | payer MEDICARE | END 2020-05-27 12:59 | disposition home or self-care (01) | LOC: ERS 11:08 | DX: S00.83XA Contusion of other part of head, initial encounter (principal); E11.9 Type 2 diabetes mellitus without complications; I10 Essential (primary) hypertension; J44.9 Chronic obstructive pulmonary disease, unspecified; F17.210 Nicotine dependence, cigarettes, uncomplicated; W06.XXXA Fall from bed, initial encounter | CPT/HCPCS: 70450 ==

== ENCOUNTER 2020-12-24 15:10 | Emergency (ER) | payer MEDICARE ==
[2020-12-24] MEDS ORDERED: Ketorolac Tromethamine 30 MG/ML VIAL ONE (20:55)
== END 2020-12-24 22:50 | disposition home or self-care (01) ==
LOC: ERS 15:10
DX: S62.664A Nondisplaced fracture of distal phalanx of right ring finger, initial encounter for closed fracture (principal); S62.646A Nondisplaced fracture of proximal phalanx of right little finger, initial encounter for closed fracture; I10 Essential (primary) hypertension; E11.9 Type 2 diabetes mellitus without complications; F17.210 Nicotine dependence, cigarettes, uncomplicated; W05.0XXA Fall from non-moving wheelchair, initial encounter
CPT/HCPCS: 29125; J1885

== ENCOUNTER 2021-02-19 14:54 | Outpatient (CLI) | payer MEDICARE, OTHER | END 2021-02-19 14:55 | disposition home or self-care (01) | LOC: BICRAD 14:54 | PROVIDERS: ATTEND Family Medicine | DX: S62.91XG Unspecified fracture of right hand, subsequent encounter for fracture with delayed healing (principal); S62.616D Displaced fracture of proximal phalanx of right little finger, subsequent encounter for fracture with routine healing; S62.614D Displaced fracture of proximal phalanx of right ring finger, subsequent encounter for fracture with routine healing ==

== ENCOUNTER 2023-01-07 15:36 | Outpatient (CLI) | payer OTHER | END 2023-01-07 15:37 | disposition home or self-care (01) | LOC: SCSRAD 15:36 | PROVIDERS: ATTEND Family Medicine | DX: R07.9 Chest pain, unspecified (principal); I51.7 Cardiomegaly; M40.204 Unspecified kyphosis, thoracic region; S22.061A Stable burst fracture of T7-T8 vertebra, initial encounter for closed fracture; R91.8 Other nonspecific abnormal finding of lung field; M43.9 Deforming dorsopathy, unspecified | CPT/HCPCS: 71046 ==

== ENCOUNTER 2023-02-17 15:08 | Inpatient (IN) | payer MEDICARE, OTHER ==
[2023-02-17] MEDS ORDERED: Aspirin Chewable 81 MG TAB ONE (15:48)
[2023-02-17 16:01] LABS: #Eosinphils 0.1 thou/uL (0.0-0.7); #Monocytes 0.3 thou/uL (0.11-0.59); #Neutrophils 2.3 thou/uL (1.40-6.50); %Basophils 0.3 % (0.0-1.0); %Eosinophils 3.2 % (0.0-10.0); %Lymphocytes 27.5 % (21.0-51.0); %Monocytes 8.5 % (0.0-10.0); %Neutrophils 60.2 % (42.0-75.0); Hematocrit 37.5 % (36.0-47.0); Hemoglobin 12.1 g/dL (12.0-16.0); Mean Corpuscular HGB CONC 32.3 g/dL (32.0-36.0); Mean Corpuscular Hemoglobin 31.3 pg (27.0-31.0); Mean Corpuscular Volume 96.9 fl (78.0-98.0); Mean Platelet Volume 11.5 fL (7.4-10.4); RBC Distribution Width 14.9 % (11.5-14.5); Red Blood Cell (RBC) Count 3.87 mill/uL (4.20-5.40); White Blood Cell (WBC) Count 3.8 10x3/uL (4.8-10.8)
[2023-02-17 16:02] LABS: Platelet Count 76 10x3/uL (130-400)
[2023-02-17 16:24] LABS: Potassium 3.3 mmol/L (3.5-5.1); Sodium 140 mmol/L (136-145)
[2023-02-17 16:25] LABS: Albumin 3.5 g/dL (3.4-4.8); Alkaline Phosphatase 94 U/L (40-110); Anion Gap 15 mmol/L (10-20); BUN (Urea Nitrogen) 17 mg/dL (9.8-20.1); Bilirubin, Total 0.9 mg/dL (0.2-1.2); Calc. Creatinine Clearance 0 mL/min (70-130); Calcium 9.3 mg/dL (7.6-10.4); Carbon Dioxide 32 mmol/L (23-31); Chloride 96 mmol/L (98-107); Estimated GFR 15; Globulin 2.9 g/dL (2.4-3.5); Glucose 103 mg/dL (80-115); Protein, Total 6.4 g/dL (5.8-8.1)
[2023-02-17 16:26] LABS: ALT (SGPT) 8 U/L (8-55); AST (SGOT) 14 U/L (5-34); Lipase 25 U/L (8-78)
[2023-02-17 16:28] LABS: Troponin I 0.019 ng/mL (< 0.028)
[2023-02-17] MEDS ORDERED: Acetaminophen 325 MG TAB PO PRN (18:41)
[2023-02-17] MEDS ORDERED: Acetaminophen 650 MG Suppository PR PRN (18:41)
[2023-02-17] MEDS ORDERED: Ondansetron PF 4 MG/2 ML Vial IVP PRN (18:41)
[2023-02-17] MEDS ORDERED: Ondansetron ODT 4 MG TAB PO PRN (18:41)
[2023-02-17] MEDS ORDERED: Famotidine 20 MG TAB PO SCH (21:00)
[2023-02-17] MEDS ORDERED: Heparin 5,000 UNITS/ML VIAL SC SCH (21:00)
[2023-02-17 21:36] LABS: Troponin I 0.014 ng/mL (< 0.028)
[2023-02-17] MEDS ORDERED: Acetaminophen 500 MG TAB PO PRN (22:24)
[2023-02-17] MEDS ORDERED: Nitroglycerin 0.4 MG TAB (25 Tab Bottle) SL PRN (22:26)
[2023-02-17] MEDS ORDERED: Pregabalin 50 MG CAP PO SCH (23:45)
[2023-02-18 00:09] LABS: Troponin I 0.019 ng/mL (< 0.028)
[2023-02-18 04:09] LABS: #Eosinphils 0.1 thou/uL (0.0-0.7); #Monocytes 0.3 thou/uL (0.11-0.59); #Neutrophils 1.8 thou/uL (1.40-6.50); %Basophils 0.3 % (0.0-1.0); %Eosinophils 3.9 % (0.0-10.0); %Lymphocytes 32.7 % (21.0-51.0); %Monocytes 9.3 % (0.0-10.0); %Neutrophils 53.5 % (42.0-75.0); Hematocrit 33.1 % (36.0-47.0); Hemoglobin 10.9 g/dL (12.0-16.0); Mean Corpuscular HGB CONC 32.9 g/dL (32.0-36.0); Mean Corpuscular Hemoglobin 31.5 pg (27.0-31.0); Mean Corpuscular Volume 95.7 fl (78.0-98.0); Mean Platelet Volume 11.4 fL (7.4-10.4); Red Blood Cell (RBC) Count 3.46 mill/uL (4.20-5.40); White Blood Cell (WBC) Count 3.3 10x3/uL (4.8-10.8)
[2023-02-18 04:10] LABS: Platelet Count 65 10x3/uL (130-400)
[2023-02-18 04:20] VITALS: BMI 21.5
[2023-02-18 04:32] LABS: Anion Gap 15 mmol/L (10-20); BUN (Urea Nitrogen) 23 mg/dL (9.8-20.1); Calc. Creatinine Clearance 13 mL/min (70-130); Calcium 9.7 mg/dL (7.8-10.44); Carbon Dioxide 29 mmol/L (23-31); Chloride 99 mmol/L (98-107); Estimated GFR 12; Glucose 78 mg/dL (80-115); Potassium 3.7 mmol/L (3.5-5.1); Sodium 139 mmol/L (136-145)
[2023-02-18] MEDS: Lidocaine 4% Patch TD SCH (08:49)
[2023-02-18] MEDS: Pregabalin 50 MG CAP PO SCH ×2 (08:55→21:03)
[2023-02-18] MEDS ORDERED: Epoetin (ESRD) 20,000 UNITS/ML MDV SC SCH (09:00)
[2023-02-18] MEDS ORDERED: Alendronate Sodium 70 mg Tablet PO SCH (09:00)
[2023-02-18] MEDS: Sertraline 100 MG TAB PO SCH ×2 (09:01→09:06)
[2023-02-18] MEDS ORDERED: EPOETIN ALFA-EPBX (ESRD) 10,000 UNITS/ML VIAL SC SCH (12:00)
[2023-02-18] MEDS: Sevelamer Carbonate 800 MG TAB PO SCH ×2 (12:42→17:54)
[2023-02-18] MEDS ORDERED: Mirtazapine 15 MG TAB PO SCH (21:00)
[2023-02-18] MEDS ORDERED: Transdermal Patch Removal TOP SCH (21:00)
[2023-02-19] MEDS: Sertraline 100 MG TAB PO SCH (09:05)
[2023-02-19] MEDS: Sevelamer Carbonate 800 MG TAB PO SCH ×2 (09:05→14:12)
[2023-02-19] MEDS: Lidocaine 4% Patch TD SCH (09:24)
[2023-02-19 10:25] VITALS: TEMP 98.2
[2023-02-19] MEDS: Pregabalin 50 MG CAP PO SCH (14:12)
[2023-02-19 16:11] VITALS: BP 129/77
== END 2023-02-19 17:07 | disposition home health service (06) | DRG 175 ==
LOC: ERS 15:08 → ERHOLD 19:55 → IMCU/EMU 22:19 → T4-B 02-19 10:22
PROVIDERS: ADMIT Internal Medicine; ATTEND Internal Medicine
PROC: 5A0935A Assistance with Respiratory Ventilation, Less than 24 Consecutive Hours, High Flow/Velocity Cannula (ICD-10-PCS; principal; 2023-02-17)
DX: T80.0XXA Air embolism following infusion, transfusion and therapeutic injection, initial encounter (principal); N18.6 End stage renal disease; I12.0 Hypertensive chronic kidney disease with stage 5 chronic kidney disease or end stage renal disease; E11.22 Type 2 diabetes mellitus with diabetic chronic kidney disease; G89.29 Other chronic pain; K74.60 Unspecified cirrhosis of liver; D69.6 Thrombocytopenia, unspecified; J44.9 Chronic obstructive pulmonary disease, unspecified; F41.9 Anxiety disorder, unspecified; F32.9 Major depressive disorder, single episode, unspecified; E87.6 Hypokalemia; F10.90 Alcohol use, unspecified, uncomplicated; F17.210 Nicotine dependence, cigarettes, uncomplicated; D63.1 Anemia in chronic kidney disease; Z88.1 Allergy status to other antibiotic agents; Z79.899 Other long term (current) drug therapy; Z89.511 Acquired absence of right leg below knee; Z90.710 Acquired absence of both cervix and uterus; Z98.49 Cataract extraction status, unspecified eye; Z98.890 Other specified postprocedural states; Z99.2 Dependence on renal dialysis; Z87.81 Personal history of (healed) traumatic fracture
CPT/HCPCS: 36415; 36416; 71045; 71275; 74177; 80048; 80053; 83605; 83690; 83735; 84484; 85025; 85379; 90935; 93005; 93306; 94760; G0257; Q5105

== ENCOUNTER 2023-03-16 11:29 | Inpatient (IN) | payer MEDICARE ==
[2023-03-16 12:16] LABS: #Eosinphils 0.1 thou/uL (0.0-0.7); #Monocytes 0.4 thou/uL (0.11-0.59); #Neutrophils 2.2 thou/uL (1.40-6.50); %Basophils 0.3 % (0.0-1.0); %Eosinophils 2.7 % (0.0-10.0); %Lymphocytes 24.2 % (21.0-51.0); %Neutrophils 60.5 % (42.0-75.0); Hematocrit 40.7 % (36.0-47.0); Hemoglobin 13.1 g/dL (12.0-16.0); Mean Corpuscular HGB CONC 32.2 g/dL (32.0-36.0); Mean Corpuscular Hemoglobin 31.6 pg (27.0-31.0); Mean Corpuscular Volume 98.3 fl (78.0-98.0); Mean Platelet Volume 11.7 fL (7.4-10.4); RBC Distribution Width 14.8 % (11.5-14.5); Red Blood Cell (RBC) Count 4.14 mill/uL (4.20-5.40); White Blood Cell (WBC) Count 3.7 10x3/uL (4.8-10.8)
[2023-03-16 12:26] LABS: Platelet Count 86 10x3/uL (130-400)
[2023-03-16 12:34] LABS: Troponin I 0.016 ng/mL (< 0.028)
[2023-03-16 13:16] LABS: ALT (SGPT) 11 U/L (8-55); AST (SGOT) 19 U/L (5-34); Albumin 4.1 g/dL (3.4-4.8); Alkaline Phosphatase 119 U/L (40-110); Anion Gap 28 mmol/L (10-20); BUN (Urea Nitrogen) 77 mg/dL (9.8-20.1); Bilirubin, Total 0.9 mg/dL (0.2-1.2); CK (CPK) 62 U/L (29-168); Calc. Creatinine Clearance 0 mL/min (70-130); Calcium 10.1 mg/dL (7.8-10.44); Carbon Dioxide 20 mmol/L (23-31); Chloride 102 mmol/L (98-107); Estimated GFR 4; Glucose 124 mg/dL (80-115); Lipase 10 U/L (8-78); Potassium 5.5 mmol/L (3.5-5.1); Protein, Total 8.1 g/dL (5.8-8.1); Sodium 144 mmol/L (136-145)
[2023-03-16] MEDS ORDERED: Acetaminophen 325 MG TAB PO PRN (13:56)
[2023-03-16] MEDS ORDERED: Ondansetron PF 4 MG/2 ML Vial IVP PRN (13:56)
[2023-03-16] MEDS ORDERED: Dextrose 5% in Water 1,000 ML IV PRN (14:33)
[2023-03-16] MEDS ORDERED: HumaLOG 300 UNITS/3 ML VIAL SC PRN ×2 (14:33)
[2023-03-16] MEDS ORDERED: Glucagon 1 MG/ML KIT IM PRN (14:33)
[2023-03-16] MEDS ORDERED: Dextrose 50% Abboject 50 ML SYRINGE SLOW IVP PRN (14:33)
[2023-03-16 16:41] VITALS: BMI 23.8
[2023-03-17 05:15] LABS: #Eosinphils 0.1 thou/uL (0.0-0.7); #Monocytes 0.4 thou/uL (0.11-0.59); #Neutrophils 1.9 thou/uL (1.40-6.50); %Basophils 0.6 % (0.0-1.0); %Lymphocytes 27.4 % (21.0-51.0); %Monocytes 13.1 % (0.0-10.0); %Neutrophils 55.6 % (42.0-75.0); Hematocrit 35.7 % (36.0-47.0); Hemoglobin 11.6 g/dL (12.0-16.0); Mean Corpuscular HGB CONC 32.5 g/dL (32.0-36.0); Mean Corpuscular Hemoglobin 31.4 pg (27.0-31.0); Mean Corpuscular Volume 96.5 fl (78.0-98.0); Mean Platelet Volume 11.7 fL (7.4-10.4); RBC Distribution Width 14.4 % (11.5-14.5); White Blood Cell (WBC) Count 3.4 10x3/uL (4.8-10.8)
[2023-03-17 05:25] LABS: Platelet Count 86 10x3/uL (130-400)
[2023-03-17 05:39] LABS: Anion Gap 24 mmol/L (10-20); BUN (Urea Nitrogen) 29 mg/dL (9.8-20.1); Calc. Creatinine Clearance 12 mL/min (70-130); Calcium 9.2 mg/dL (7.8-10.44); Carbon Dioxide 19 mmol/L (23-31); Chloride 99 mmol/L (98-107); Estimated GFR 9; Glucose 72 mg/dL (80-115); Potassium 4.8 mmol/L (3.5-5.1); Sodium 137 mmol/L (136-145)
[2023-03-17] MEDS ORDERED: Heparin 10,000 UNITS/ 10 ML VIAL ONE (08:50)
[2023-03-17] MEDS ORDERED: Lactulose 20 GM (30 mL) UDCUP PO SCH (11:15)
[2023-03-17] MEDS: Lactulose 20 GM (30 mL) UDCUP PO SCH ×2 (15:52→21:13)
[2023-03-17] MEDS: Sevelamer Carbonate 800 MG TAB PO SCH (17:32)
[2023-03-17] MEDS: Ferrous Sulfate 325 MG TAB PO SCH (21:12)
[2023-03-17] MEDS: Amlodipine 10 MG TAB PO SCH (21:13)
[2023-03-18 04:31] LABS: #Monocytes 0.6 thou/uL (0.11-0.59); #Neutrophils 4.3 thou/uL (1.40-6.50); %Basophils 0.4 % (0.0-1.0); %Eosinophils 0.4 % (0.0-10.0); %Lymphocytes 11.3 % (21.0-51.0); %Monocytes 10.8 % (0.0-10.0); %Neutrophils 76.9 % (42.0-75.0); Hematocrit 39.6 % (36.0-47.0); Hemoglobin 13.2 g/dL (12.0-16.0); Mean Corpuscular HGB CONC 33.3 g/dL (32.0-36.0); Mean Corpuscular Hemoglobin 31.2 pg (27.0-31.0); Mean Platelet Volume 11.5 fL (7.4-10.4); Platelet Count 100 10x3/uL (130-400); RBC Distribution Width 13.8 % (11.5-14.5); Red Blood Cell (RBC) Count 4.23 mill/uL (4.20-5.40); White Blood Cell (WBC) Count 5.6 10x3/uL (4.8-10.8)
[2023-03-18 04:35] LABS: Mean Corpuscular Volume 93.6 fl (78.0-98.0)
[2023-03-18 05:04] LABS: Anion Gap 26 mmol/L (10-20); BUN (Urea Nitrogen) 19 mg/dL (9.8-20.1); Calc. Creatinine Clearance 14 mL/min (70-130); Calcium 9.9 mg/dL (7.8-10.44); Carbon Dioxide 19 mmol/L (23-31); Chloride 97 mmol/L (98-107); Estimated GFR 12; Glucose 108 mg/dL (80-115); Potassium 3.6 mmol/L (3.5-5.1); Sodium 138 mmol/L (136-145)
[2023-03-18] MEDS: Isosorbide Mononitrate 60 MG ER.TAB PO SCH (07:39)
[2023-03-18] MEDS: Lactulose 20 GM (30 mL) UDCUP PO SCH ×3 (07:39→20:33)
[2023-03-18] MEDS: Clopidogrel Bisulfate 75 MG TAB PO SCH (07:39)
[2023-03-18] MEDS: Sevelamer Carbonate 800 MG TAB PO SCH ×3 (07:39→18:01)
[2023-03-18] MEDS: Ferrous Sulfate 325 MG TAB PO SCH ×2 (07:39→20:33)
[2023-03-18] MEDS: Calcitriol 0.25 MCG CAP PO SCH (07:39)
[2023-03-18] MEDS: Amlodipine 10 MG TAB PO SCH (20:32)
[2023-03-19 04:05] LABS: #Eosinphils 0.1 thou/uL (0.0-0.7); #Monocytes 0.7 thou/uL (0.11-0.59); #Neutrophils 4.6 thou/uL (1.40-6.50); %Basophils 0.2 % (0.0-1.0); %Eosinophils 1.1 % (0.0-10.0); %Lymphocytes 11.8 % (21.0-51.0); %Monocytes 11.3 % (0.0-10.0); %Neutrophils 75.3 % (42.0-75.0); Hematocrit 35.6 % (36.0-47.0); Hemoglobin 11.8 g/dL (12.0-16.0); Mean Corpuscular HGB CONC 33.1 g/dL (32.0-36.0); Mean Corpuscular Hemoglobin 31.3 pg (27.0-31.0); Mean Corpuscular Volume 94.4 fl (78.0-98.0); Mean Platelet Volume 11.3 fL (7.4-10.4); Red Blood Cell (RBC) Count 3.77 mill/uL (4.20-5.40); White Blood Cell (WBC) Count 6.1 10x3/uL (4.8-10.8)
[2023-03-19 04:06] LABS: Platelet Count 80 10x3/uL (130-400)
[2023-03-19 04:26] LABS: Anion Gap 23 mmol/L (10-20); BUN (Urea Nitrogen) 31 mg/dL (9.8-20.1); Calc. Creatinine Clearance 9 mL/min (70-130); Calcium 9.9 mg/dL (7.8-10.44); Carbon Dioxide 22 mmol/L (23-31); Chloride 98 mmol/L (98-107); Estimated GFR 7; Glucose 109 mg/dL (80-115); Potassium 3.7 mmol/L (3.5-5.1); Sodium 139 mmol/L (136-145)
[2023-03-19] MEDS ORDERED: FLU VACC QS2023(65UP)/MF59C/PF 60 MCG/0.5 ML SYRINGE IM ONE (09:00)
[2023-03-19] MEDS: Sevelamer Carbonate 800 MG TAB PO SCH ×3 (10:43→13:55)
[2023-03-19] MEDS: Calcitriol 0.25 MCG CAP PO SCH (11:24)
[2023-03-19] MEDS: Isosorbide Mononitrate 60 MG ER.TAB PO SCH (11:24)
[2023-03-19] MEDS: Clopidogrel Bisulfate 75 MG TAB PO SCH (11:24)
[2023-03-19] MEDS: Lactulose 20 GM (30 mL) UDCUP PO SCH ×2 (11:24→22:16)
[2023-03-19] MEDS: Ferrous Sulfate 325 MG TAB PO SCH ×2 (11:24→22:17)
[2023-03-19] MEDS ORDERED: Acetaminophen/Codeine 30-300mg Tablet PO PRN ×2 (12:06)
[2023-03-19] MEDS ORDERED: Pregabalin 75 MG CAP PO SCH ×2 (12:33→21:00)
[2023-03-19] MEDS: Acetaminophen/Codeine 30-300mg Tablet PO PRN (16:11)
[2023-03-19] MEDS ORDERED: Albumin 25% 25 GM (100 mL) BOT IVPB SCH (18:30)
[2023-03-19] MEDS ORDERED: Pregabalin 50 MG CAP PO SCH (21:00)
[2023-03-19] MEDS: Amlodipine 10 MG TAB PO SCH (22:16)
[2023-03-19] MEDS: Mirtazapine 30 MG Soltab PO SCH (22:25)
[2023-03-20] MEDS: Acetaminophen/Codeine 30-300mg Tablet PO PRN ×2 (02:56→16:29)
[2023-03-20] MEDS: Sevelamer Carbonate 800 MG TAB PO SCH ×4 (08:14→19:08)
[2023-03-20 08:50] LABS: #Eosinphils 0.1 thou/uL (0.0-0.7); #Monocytes 0.7 thou/uL (0.11-0.59); #Neutrophils 3.2 thou/uL (1.40-6.50); %Basophils 0.2 % (0.0-1.0); %Lymphocytes 17.9 % (21.0-51.0); %Monocytes 14.9 % (0.0-10.0); %Neutrophils 64.6 % (42.0-75.0); Hematocrit 34.4 % (36.0-47.0); Hemoglobin 11.4 g/dL (12.0-16.0); Mean Corpuscular HGB CONC 33.1 g/dL (32.0-36.0); Mean Corpuscular Hemoglobin 31.1 pg (27.0-31.0); Mean Corpuscular Volume 93.7 fl (78.0-98.0); Mean Platelet Volume 12.1 fL (7.4-10.4); Platelet Count 58 10x3/uL (130-400); RBC Distribution Width 13.8 % (11.5-14.5); Red Blood Cell (RBC) Count 3.67 mill/uL (4.20-5.40)
[2023-03-20] MEDS: Isosorbide Mononitrate 60 MG ER.TAB PO SCH (08:56)
[2023-03-20] MEDS: Calcitriol 0.25 MCG CAP PO SCH (08:56)
[2023-03-20] MEDS: Pregabalin 75 MG CAP PO SCH (08:56)
[2023-03-20] MEDS: Sertraline 100 MG TAB PO SCH (08:57)
[2023-03-20] MEDS: Ferrous Sulfate 325 MG TAB PO SCH ×2 (08:57→21:30)
[2023-03-20] MEDS: Lactulose 20 GM (30 mL) UDCUP PO SCH ×3 (08:57→21:29)
[2023-03-20] MEDS: Clopidogrel Bisulfate 75 MG TAB PO SCH (08:57)
[2023-03-20] MEDS ORDERED: Pregabalin 75 MG CAP PO SCH (09:00)
[2023-03-20] MEDS ORDERED: Sertraline 100 MG TAB PO SCH ×2 (09:00)
[2023-03-20 09:13] LABS: Anion Gap 14 mmol/L (10-20); BUN (Urea Nitrogen) 12 mg/dL (9.8-20.1); Calc. Creatinine Clearance 17 mL/min (70-130); Calcium 9.6 mg/dL (7.8-10.44); Carbon Dioxide 27 mmol/L (23-31); Chloride 98 mmol/L (98-107); Estimated GFR 15; Glucose 93 mg/dL (80-115); Potassium 3.2 mmol/L (3.5-5.1); Sodium 136 mmol/L (136-145)
[2023-03-20] MEDS ORDERED: Thiamine 100 MG TAB PO SCH (15:45)
[2023-03-20] MEDS: Mirtazapine 30 MG Soltab PO SCH (21:29)
[2023-03-20] MEDS: Amlodipine 10 MG TAB PO SCH (21:29)
[2023-03-20] MEDS: Ondansetron ODT 4 MG TAB PO PRN (21:30)
[2023-03-21] MEDS: Ferrous Sulfate 325 MG TAB PO SCH ×2 (08:16→20:33)
[2023-03-21] MEDS: Folic Acid 1 MG TAB PO SCH (08:16)
[2023-03-21] MEDS: Sevelamer Carbonate 800 MG TAB PO SCH ×3 (08:16→18:17)
[2023-03-21] MEDS: Thiamine 100 MG TAB PO SCH (08:16)
[2023-03-21] MEDS: Isosorbide Mononitrate 60 MG ER.TAB PO SCH (08:17)
[2023-03-21] MEDS: Sertraline 100 MG TAB PO SCH (08:17)
[2023-03-21] MEDS: Clopidogrel Bisulfate 75 MG TAB PO SCH (08:17)
[2023-03-21] MEDS: Pregabalin 75 MG CAP PO SCH (08:17)
[2023-03-21] MEDS: Calcitriol 0.25 MCG CAP PO SCH (08:17)
[2023-03-21] MEDS: Lactulose 20 GM (30 mL) UDCUP PO SCH ×3 (09:00→20:33)
[2023-03-21 14:00] LABS: #Eosinphils 0.2 thou/uL (0.0-0.7); #Monocytes 0.7 thou/uL (0.11-0.59); #Neutrophils 3.3 thou/uL (1.40-6.50); %Basophils 0.2 % (0.0-1.0); %Eosinophils 3.3 % (0.0-10.0); %Lymphocytes 15.9 % (21.0-51.0); %Monocytes 13.3 % (0.0-10.0); %Neutrophils 66.9 % (42.0-75.0); Hematocrit 38.3 % (36.0-47.0); Hemoglobin 12.6 g/dL (12.0-16.0); Mean Corpuscular HGB CONC 32.9 g/dL (32.0-36.0); Mean Corpuscular Hemoglobin 31.5 pg (27.0-31.0); Mean Corpuscular Volume 95.8 fl (78.0-98.0); Mean Platelet Volume 11.7 fL (7.4-10.4); RBC Distribution Width 13.9 % (11.5-14.5); White Blood Cell (WBC) Count 4.9 10x3/uL (4.8-10.8)
[2023-03-21] MEDS ORDERED: Calcium Carbonate 500 MG ChewTAB PO PRN (14:00)
[2023-03-21 14:03] LABS: Platelet Count 78 10x3/uL (130-400)
[2023-03-21 14:10] LABS: Anion Gap 14 mmol/L (10-20); BUN (Urea Nitrogen) 7 mg/dL (9.8-20.1); Calc. Creatinine Clearance 28 mL/min (70-130); Calcium 9.3 mg/dL (7.8-10.44); Carbon Dioxide 28 mmol/L (23-31); Chloride 100 mmol/L (98-107); Estimated GFR 27; Glucose 100 mg/dL (80-115); Potassium 3.7 mmol/L (3.5-5.1); Sodium 138 mmol/L (136-145)
[2023-03-21] MEDS: Acetaminophen/Codeine 30-300mg Tablet PO PRN (14:45)
[2023-03-21] MEDS: Mirtazapine 30 MG TAB PO SCH (20:32)
[2023-03-21] MEDS: Amlodipine 10 MG TAB PO SCH (20:33)
[2023-03-21] MEDS: Ondansetron ODT 4 MG TAB PO PRN (20:34)
[2023-03-22] MEDS: Acetaminophen/Codeine 30-300mg Tablet PO PRN ×2 (01:34→12:50)
[2023-03-22] MEDS: Sertraline 100 MG TAB PO SCH (08:37)
[2023-03-22] MEDS: Sevelamer Carbonate 800 MG TAB PO SCH ×3 (08:37→15:49)
[2023-03-22] MEDS: Calcitriol 0.25 MCG CAP PO SCH (08:37)
[2023-03-22] MEDS: Folic Acid 1 MG TAB PO SCH (08:38)
[2023-03-22] MEDS: Pregabalin 75 MG CAP PO SCH (08:38)
[2023-03-22] MEDS: Clopidogrel Bisulfate 75 MG TAB PO SCH (08:38)
[2023-03-22] MEDS: Ferrous Sulfate 325 MG TAB PO SCH ×2 (08:38→21:02)
[2023-03-22] MEDS: Isosorbide Mononitrate 60 MG ER.TAB PO SCH (08:38)
[2023-03-22] MEDS: Thiamine 100 MG TAB PO SCH (08:38)
[2023-03-22] MEDS: Lactulose 20 GM (30 mL) UDCUP PO SCH ×3 (08:39→21:05)
[2023-03-22] MEDS ORDERED: Acetaminophen 325 MG TAB PO PRN (08:46)
[2023-03-22 09:20] LABS: #Eosinphils 0.2 thou/uL (0.0-0.7); #Monocytes 0.6 thou/uL (0.11-0.59); #Neutrophils 2.7 thou/uL (1.40-6.50); %Basophils 0.2 % (0.0-1.0); %Eosinophils 3.4 % (0.0-10.0); %Lymphocytes 21.2 % (21.0-51.0); %Monocytes 13.7 % (0.0-10.0); Hemoglobin 11.3 g/dL (12.0-16.0); Mean Corpuscular HGB CONC 32.3 g/dL (32.0-36.0); Mean Corpuscular Volume 95.9 fl (78.0-98.0); Mean Platelet Volume 12.1 fL (7.4-10.4); RBC Distribution Width 13.8 % (11.5-14.5); Red Blood Cell (RBC) Count 3.65 mill/uL (4.20-5.40); White Blood Cell (WBC) Count 4.4 10x3/uL (4.8-10.8)
[2023-03-22 10:14] LABS: Anion Gap 13 mmol/L (10-20); BUN (Urea Nitrogen) 20 mg/dL (9.8-20.1); Calc. Creatinine Clearance 16 mL/min (70-130); Calcium 9.8 mg/dL (7.8-10.44); Carbon Dioxide 26 mmol/L (23-31); Chloride 99 mmol/L (98-107); Estimated GFR 14; Glucose 157 mg/dL (80-115); Potassium 3.9 mmol/L (3.5-5.1); Sodium 134 mmol/L (136-145)
[2023-03-22 10:21] LABS: Platelet Count 72 10x3/uL (130-400)
[2023-03-22] MEDS ORDERED: Nystatin Powder 15 GM BOT TOP PRN (14:09)
[2023-03-22] MEDS: Amlodipine 10 MG TAB PO SCH (21:02)
[2023-03-22] MEDS: Mirtazapine 30 MG TAB PO SCH (21:06)
[2023-03-23 08:11] LABS: Anion Gap 12 mmol/L (10-20); BUN (Urea Nitrogen) 27 mg/dL (9.8-20.1); Calc. Creatinine Clearance 12 mL/min (70-130); Calcium 9.6 mg/dL (7.8-10.44); Carbon Dioxide 26 mmol/L (23-31); Chloride 100 mmol/L (98-107); Estimated GFR 10; Glucose 94 mg/dL (80-115); Potassium 3.9 mmol/L (3.5-5.1); Sodium 134 mmol/L (136-145)
[2023-03-23] MEDS: Sevelamer Carbonate 800 MG TAB PO SCH ×3 (10:08→18:21)
[2023-03-23] MEDS: Clopidogrel Bisulfate 75 MG TAB PO SCH (10:08)
[2023-03-23] MEDS: Ferrous Sulfate 325 MG TAB PO SCH ×2 (10:08→21:22)
[2023-03-23] MEDS: Calcitriol 0.25 MCG CAP PO SCH (10:08)
[2023-03-23] MEDS: Lactulose 20 GM (30 mL) UDCUP PO SCH ×3 (10:08→21:22)
[2023-03-23] MEDS: Isosorbide Mononitrate 60 MG ER.TAB PO SCH (10:09)
[2023-03-23] MEDS: Sertraline 100 MG TAB PO SCH (10:09)
[2023-03-23] MEDS: Thiamine 100 MG TAB PO SCH (10:09)
[2023-03-23] MEDS: Pregabalin 75 MG CAP PO SCH (10:09)
[2023-03-23] MEDS: Folic Acid 1 MG TAB PO SCH (10:09)
[2023-03-23] MEDS: Acetaminophen/Codeine 30-300mg Tablet PO PRN (15:36)
[2023-03-23] MEDS: Amlodipine 10 MG TAB PO SCH (21:22)
[2023-03-23] MEDS: Mirtazapine 30 MG TAB PO SCH (21:22)
[2023-03-24] MEDS: Sevelamer Carbonate 800 MG TAB PO SCH ×3 (07:49→16:36)
[2023-03-24] MEDS: Ferrous Sulfate 325 MG TAB PO SCH (07:49)
[2023-03-24] MEDS: Lactulose 20 GM (30 mL) UDCUP PO SCH ×2 (07:50→14:13)
[2023-03-24] MEDS: Thiamine 100 MG TAB PO SCH (10:40)
[2023-03-24] MEDS: Folic Acid 1 MG TAB PO SCH (10:40)
[2023-03-24] MEDS: Isosorbide Mononitrate 60 MG ER.TAB PO SCH (10:40)
[2023-03-24] MEDS: Calcitriol 0.25 MCG CAP PO SCH (13:30)
[2023-03-24] MEDS: Clopidogrel Bisulfate 75 MG TAB PO SCH (13:30)
[2023-03-24] MEDS: Acetaminophen/Codeine 30-300mg Tablet PO PRN (14:12)
[2023-03-24] MEDS: Sertraline 100 MG TAB PO SCH (14:13)
[2023-03-24] MEDS: Pregabalin 75 MG CAP PO SCH (14:13)
[2023-03-24 21:02] VITALS: BP 141/99; TEMP 98.3
== END 2023-03-24 20:59 | disposition home health service (06) | DRG 441 ==
LOC: ERS 11:29 → 2NO 14:02 → OBSVTOIN 03-18 09:24 → T4-A 03-18 16:51
PROVIDERS: ADMIT Internal Medicine; ATTEND Family Medicine
PROC: 5A1D70Z Performance of Urinary Filtration, Intermittent, Less than 6 Hours Per Day (ICD-10-PCS; 2023-03-16)
PROC: 30233J1 Transfusion of Nonautologous Serum Albumin into Peripheral Vein, Percutaneous Approach (ICD-10-PCS; principal; 2023-03-19)
DX: K76.82 Hepatic encephalopathy (principal); G93.41 Metabolic encephalopathy; N18.6 End stage renal disease; E72.20 Disorder of urea cycle metabolism, unspecified; N25.81 Secondary hyperparathyroidism of renal origin; I12.0 Hypertensive chronic kidney disease with stage 5 chronic kidney disease or end stage renal disease; Z51.5 Encounter for palliative care; Z66 Do not resuscitate; K72.90 Hepatic failure, unspecified without coma; E11.22 Type 2 diabetes mellitus with diabetic chronic kidney disease; F32.A Depression, unspecified; J44.9 Chronic obstructive pulmonary disease, unspecified; F41.9 Anxiety disorder, unspecified; F19.10 Other psychoactive substance abuse, uncomplicated; I73.9 Peripheral vascular disease, unspecified; M81.0 Age-related osteoporosis without current pathological fracture; G89.29 Other chronic pain; F17.210 Nicotine dependence, cigarettes, uncomplicated; E87.5 Hyperkalemia; F39 Unspecified mood [affective] disorder; D63.1 Anemia in chronic kidney disease; K74.60 Unspecified cirrhosis of liver; Z99.2 Dependence on renal dialysis; Z88.1 Allergy status to other antibiotic agents; Z89.511 Acquired absence of right leg below knee; Z88.8 Allergy status to other drugs, medicaments and biological substances; Z79.2 Long term (current) use of antibiotics; Z90.89 Acquired absence of other organs; Z98.890 Other specified postprocedural states; Z90.710 Acquired absence of both cervix and uterus; Z71.6 Tobacco abuse counseling
CPT/HCPCS: 36415; 36416; 70450; 71045; 80048; 80053; 82140; 82550; 83690; 83880; 84484; 85025; 90935; 93005; G0257; G0378; J1644; J1815; J2405; P9047; Q0162

== ENCOUNTER 2023-04-19 09:13 | Observation (INO) | payer MEDICARE ==
[2023-04-19] MEDS ORDERED: Morphine 4 MG/ML VIAL ONE (09:53)
[2023-04-19] MEDS ORDERED: Ondansetron PF 4 MG/2 ML Vial ONE (09:53)
[2023-04-19 09:55] LABS: #Monocytes 0.4 thou/uL (0.11-0.59); #Neutrophils 1.5 thou/uL (1.40-6.50); %Eosinophils 0.8 % (0.0-10.0); %Monocytes 17.2 % (0.0-10.0); %Neutrophils 61.6 % (42.0-75.0); Hematocrit 30.2 % (36.0-47.0); Hemoglobin 9.5 g/dL (12.0-16.0); Mean Corpuscular HGB CONC 31.5 g/dL (32.0-36.0); Mean Corpuscular Hemoglobin 31.8 pg (27.0-31.0); Mean Platelet Volume 11.4 fL (7.4-10.4); RBC Distribution Width 15.6 % (11.5-14.5); Red Blood Cell (RBC) Count 2.99 mill/uL (4.20-5.40); White Blood Cell (WBC) Count 2.5 10x3/uL (4.8-10.8)
[2023-04-19 10:01] LABS: Platelet Count 44 10x3/uL (130-400)
[2023-04-19 10:09] LABS: INR-International Normal Ratio 1.1; Prothrombin Time 14.4 sec (12.0-14.7)
[2023-04-19 10:10] LABS: PTT 37.3 sec (22.9-36.1)
[2023-04-19 10:18] LABS: ALT (SGPT) 8 U/L (8-55); AST (SGOT) 18 U/L (5-34); Albumin 3.4 g/dL (3.4-4.8); Alkaline Phosphatase 99 U/L (40-110); Anion Gap 13 mmol/L (10-20); BUN (Urea Nitrogen) 25 mg/dL (9.8-20.1); Bilirubin, Total 0.8 mg/dL (0.2-1.2); Calc. Creatinine Clearance 0 mL/min (70-130); Calcium 9.2 mg/dL (7.8-10.44); Carbon Dioxide 31 mmol/L (23-31); Chloride 97 mmol/L (98-107); Estimated GFR 12; Globulin 3.3 g/dL (2.4-3.5); Glucose 97 mg/dL (80-115); Potassium 4.3 mmol/L (3.5-5.1); Protein, Total 6.7 g/dL (5.8-8.1); Sodium 137 mmol/L (136-145)
[2023-04-19 10:23] LABS: Troponin I 0.038 ng/mL (< 0.028)
[2023-04-19] MEDS ORDERED: LevoFLOXacin 750 mg/D5W 150 ml Premix Bag ONE (10:39)
[2023-04-19] MEDS ORDERED: Aspirin Chewable 81 MG TAB ONE (10:39)
[2023-04-19 10:43] LABS: SARS-CoV-2 NAA Rapid Test Not Detected (NotDetected)
[2023-04-19] MEDS ORDERED: Ondansetron PF 4 MG/2 ML Vial IVP PRN (11:25)
[2023-04-19] MEDS ORDERED: Senokot S 8.6-50 MG TAB PO PRN (11:25)
[2023-04-19] MEDS ORDERED: Bisacodyl 10 MG SUPP PR PRN (11:25)
[2023-04-19] MEDS ORDERED: Bisacodyl 5 MG TAB PO PRN (11:25)
[2023-04-19] MEDS ORDERED: Acetaminophen 325 MG TAB PO PRN (11:25)
[2023-04-19] MEDS ORDERED: Dextrose 5% in Water 1,000 ML IV PRN (11:30)
[2023-04-19] MEDS ORDERED: Glucagon 1 MG/ML KIT IM PRN (11:30)
[2023-04-19] MEDS ORDERED: Ipratropium/Albuterol 3 ML NEB NEB PRN (11:30)
[2023-04-19] MEDS ORDERED: Insulin Regular 300 UNITS/3 ML VIAL SC PRN ×2 (11:30)
[2023-04-19] MEDS ORDERED: Dextrose 50% Abboject 50 ML SYRINGE SLOW IVP PRN (11:30)
[2023-04-19] MEDS ORDERED: Oseltamivir 75 MG CAP ONE (11:39)
[2023-04-19] MEDS ORDERED: Oseltamivir 75 MG CAP PO SCH (11:45)
[2023-04-19 12:25] LABS: Troponin I 0.036 ng/mL (< 0.028)
[2023-04-19] MEDS ORDERED: Ipratropium/Albuterol 3 ML NEB ONE (13:28)
[2023-04-19] MEDS: Ipratropium/Albuterol 3 ML NEB NEB SCH (13:39)
[2023-04-19] MEDS: Lidocaine 4% Patch TD SCH (13:40)
[2023-04-19 14:58] VITALS: BMI 22.8
[2023-04-19 15:50] LABS: Troponin I 0.026 ng/mL (< 0.028)
[2023-04-19] MEDS: Sevelamer Carbonate 800 MG TAB PO SCH (17:56)
[2023-04-19] MEDS: Acetaminophen/Codeine 30-300mg Tablet PO SCH (22:33)
[2023-04-19] MEDS: Mirtazapine 30 MG TAB PO SCH (22:33)
[2023-04-19] MEDS: guaiFENesin ER 600 MG TAB PO SCH (22:33)
[2023-04-19] MEDS: Lactulose 20 GM (30 mL) UDCUP PO SCH (22:33)
[2023-04-19] MEDS: Transdermal Patch Removal TOP SCH (22:34)
[2023-04-20] MEDS: FLU VACC QS2023(65UP)/MF59C/PF 60 MCG/0.5 ML SYRINGE IM ONE (00:33)
[2023-04-20 05:44] LABS: Actual Bicarbonate (HCO3v) 27.6 mEq/L (22-28); Base Excess 3.7 mEq/L (-2.0 to +3.0); Calcium, Ionized (venous) 1.03 mmol/L (1.16-1.32); Chloride (VBG) 96 mmol/L (98-106); Hematocrit-VBG 29 % (36.0-47.0); Hemoglobin (Hb) 9.7 g/dL (11.7-16.1); Potassium (VBG) 4.48 mmol/L (3.70-5.30); Sodium 134 mmol/L (133-146); pH (venous) 7.469 (7.32-7.43)
[2023-04-20 05:45] LABS: #Monocytes 0.2 thou/uL (0.11-0.59); %Eosinophils 0.8 % (0.0-10.0); %Monocytes 8.8 % (0.0-10.0); %Neutrophils 80.4 % (42.0-75.0); Hematocrit 28.2 % (36.0-47.0); Hemoglobin 8.7 g/dL (12.0-16.0); Mean Corpuscular HGB CONC 30.9 g/dL (32.0-36.0); Mean Corpuscular Hemoglobin 31.1 pg (27.0-31.0); Mean Corpuscular Volume 100.7 fl (78.0-98.0); Mean Platelet Volume 12.4 fL (7.4-10.4); RBC Distribution Width 15.1 % (11.5-14.5); White Blood Cell (WBC) Count 2.5 10x3/uL (4.8-10.8)
[2023-04-20 06:02] LABS: Platelet Count 41 10x3/uL (130-400)
[2023-04-20 06:11] LABS: Anion Gap 17 mmol/L (10-20); BUN (Urea Nitrogen) 39 mg/dL (9.8-20.1); Calc. Creatinine Clearance 11 mL/min (70-130); Carbon Dioxide 28 mmol/L (23-31); Cardiac Risk 2.3 (Less than 4.5); Chloride 96 mmol/L (98-107); Cholesterol 145 mg/dl (< 200 Desired); Estimated GFR 9; Glucose 93 mg/dL (80-115); HDL Cholesterol 63 mg/dL (>60 Neg Risk); LDL Cholesterol, Calculated 71 mg/dL; Magnesium 2.4 mg/dL (1.6-2.6); Potassium 4.6 mmol/L (3.5-5.1); Sodium 136 mmol/L (136-145); Triglycerides 55 mg/dL (Less than 150)
[2023-04-20 06:12] LABS: ALT (SGPT) 9 U/L (8-55); AST (SGOT) 19 U/L (5-34); Albumin 3.4 g/dL (3.4-4.8); Alkaline Phosphatase 92 U/L (40-110); Bilirubin, Direct 0.3 mg/dL (0.1-0.3); Bilirubin, Total 0.5 mg/dL (0.2-1.2); Protein, Total 6.5 g/dL (5.8-8.1)
[2023-04-20] MEDS: Pregabalin 50 MG CAP PO SCH (08:07)
[2023-04-20] MEDS: Sertraline 100 MG TAB PO SCH (08:09)
[2023-04-20] MEDS: Benzonatate 100 MG CAP PO SCH (08:09)
[2023-04-20] MEDS: Thiamine 100 MG TAB PO SCH (08:09)
[2023-04-20] MEDS: Folic Acid 1 MG TAB PO SCH (08:10)
[2023-04-20] MEDS: predniSONE 20 MG TAB PO SCH (08:11)
[2023-04-20] MEDS: Lidocaine 4% Patch TD SCH (08:12)
[2023-04-20 11:32] VITALS: BP 167/97; TEMP 98
[2023-04-20] MEDS: EPOETIN ALFA-EPBX (ESRD) 10,000 UNITS/ML VIAL SC SCH (12:03)
[2023-04-21] MEDS ORDERED: Midodrine HCl 5 MG TAB PO SCH (09:00)
[2023-04-21] MEDS ORDERED: Oseltamivir 6 MG/ML ORAL SUSP PO SCH (17:00)
[2023-04-21] MEDS ORDERED: LevoFLOXacin 500 mg/D5W 500 MG in Premix 1 BAG IVPB SCH (17:00)
== END 2023-04-20 14:31 | disposition home or self-care (01) ==
LOC: ERS 09:13 → INTOOBSV 11:25 → ERHOLD 11:25 → 2NO 14:50
PROVIDERS: ADMIT Family Medicine; ATTEND Family Medicine
DX: J96.01 Acute respiratory failure with hypoxia (principal); J44.1 Chronic obstructive pulmonary disease with (acute) exacerbation; J10.00 Influenza due to other identified influenza virus with unspecified type of pneumonia; E11.22 Type 2 diabetes mellitus with diabetic chronic kidney disease; I12.0 Hypertensive chronic kidney disease with stage 5 chronic kidney disease or end stage renal disease; N18.6 End stage renal disease; K70.30 Alcoholic cirrhosis of liver without ascites; F10.10 Alcohol abuse, uncomplicated; D61.818 Other pancytopenia; D63.1 Anemia in chronic kidney disease; G89.29 Other chronic pain; F17.210 Nicotine dependence, cigarettes, uncomplicated; Z99.2 Dependence on renal dialysis; Z88.1 Allergy status to other antibiotic agents; Z88.8 Allergy status to other drugs, medicaments and biological substances; Z79.899 Other long term (current) drug therapy; Z90.710 Acquired absence of both cervix and uterus; Z90.89 Acquired absence of other organs; Z98.890 Other specified postprocedural states; Z89.511 Acquired absence of right leg below knee
CPT/HCPCS: 0240U; 71045; 80048; 80053; 80061; 80076; 82805; 82962 ×2; 83036; 83605; 83735; 83880; 84443; 84484 ×2; 85025 ×2; 85610; 85730; 86850; 86900; 86901; 87040; 93005; 93971; 94640 ×2; 94760; 96365; 96372; 96375; 97530; 99285; G0378 ×3; Q5105; 36415; 36416; J1956; J2270; J2405; J7512; J7620